=== PATIENT | female | born 1930 | race Caucasian/White ===

== ENCOUNTER → 2016-07-01 | Outpatient (CLI) | payer MEDICARE, BC | LOC: RAD 14:28 | PROVIDERS: ATTEND Specialist | DX: R05 Cough (principal); R06.02 Shortness of breath; R09.89 Other specified symptoms and signs involving the circulatory and respiratory systems | CPT/HCPCS: 71020 ==

== ENCOUNTER → 2016-08-21 | Outpatient (CLI) | payer MEDICARE, BC | LOC: RAD 08:21 | PROVIDERS: ATTEND Internal Medicine Gastroenterology | DX: R13.10 Dysphagia, unspecified (principal) | CPT/HCPCS: 74220 ==

== ENCOUNTER 2016-09-24 09:57 | Emergency (ER) | payer MEDICARE, BC ==
[2016-09-24] MEDS ORDERED: ACETAMINOPHEN 325 MG TABLET PO ONE (10:48)
[2016-09-24] MEDS ORDERED: ASPIRIN 81 MG TABLET, CHEWABLE PO ONE (10:49)
--- NOTE | 2016-09-24 10:58 | ER Document Report ---
ED General - General Mode of Arrival: Medic Information source: Patient, Relative - son TRAVEL OUTSIDE OF THE [place] IN LAST 30 DAYS: No - HPI Patient complains to provider of: Neck Pain Onset: This morning Associated symptoms: Other - see notes above <JURGEN PRIETO - Last Filed: 09/24/16 17:10> <YAKELINJEAN CLAUDE - Last Filed: 09/24/16 20:25> - General Chief Complaint: Blood Pressure Problem Stated Complaint: BLOOD PRESSURE PROBLEMS Notes: 85 year old female with history of CHF, atrial fibrillation (with a pacemaker [ [employer]] and defibrillator), hyperlipidemia, and hypertension presents to the ED via EMS complaining of right sided neck pain that started earlier this morning. Patient explains that she had a C5, 6, and 7 fusion "years" ago and they have "broken apart since", so she develops neck pain when bending her head over for extended periods of time. Patient was bending over to put on her clothes this morning when the pain started. Patient went to lay down in her bed so that she didn't "pass out" on the ground. Patient's son reports that her heart rate has been between 45-55 and her blood pressure is in the 90's and is concerned over the patient's heart health. Patient denies chest pain or shortness of breath. Patient states that she asked EMT to place a C-collar, because it helps with her neck pain. Patient denies falling, but her son states that she had a near fall 2 weeks ago, but caught herself before collapsing on the ground. EMS reports that the patient was hypotensive, bradycardic, and had a syncopal episode while on the toilet this morning. As per [facility] records, in May 2016, the patient was seen in the ED complaining of chest pain, hypertension, and a syncopal epsiode which was diagnosed as a post-vasovagal episode. Patient had a cardiac follow up and had an echocardiogram and stress test performed secondary to this episode. Patient's show horse driver is Dr. Diaz and Dr. Prieto. Patient's primary care provider is Dr. Reid. (JURGEN PRIETO) - Related Data Allergies/Adverse Reactions: Penicillins Allergy (Verified 10/28/11 14:18) prochlorperazine [From Compazine] Adverse Reaction (Verified 05/24/16 17:51) Past Medical History - General Information source: Patient, Relative - son - Social History Smoking Status: Unknown if Ever Smoked Family History: CAD, Hypertension - Past Medical History Cardiac Medical History: Reports: Hx Atrial Fibrillation, Hx Congestive Heart Failure, Hx Hypercholesterolemia, Hx Hypertension Musculoskeltal Medical History: Reports Hx Arthritis - knees and hips Psychiatric Medical History: Reports: Hx Depression - mild Past Surgical History: Reports: Hx Cardiac Surgery - pacemaker, Hx Hysterectomy , Hx Pacemaker, Hx Valve Replacement - Mitral valve 1994 - Immunizations Hx Diphtheria, Pertussis, Tetanus Vaccination: Yes Hx Pneumococcal Vaccination: 06/21/09 <JURGEN PRIETO - Last Filed: 09/24/16 17:10> Review of Systems - Review of Systems Constitutional: No symptoms reported EENT: No symptoms reported Cardiovascular: No symptoms reported. denies: Chest pain Respiratory: No symptoms reported. denies: Short of breath Gastrointestinal: No symptoms reported Genitourinary: No symptoms reported Female Genitourinary: No symptoms reported Musculoskeletal: See HPI, Neck pain - right sided Skin: No symptoms reported Hematologic/Lymphatic: No symptoms reported Neurological/Psychological: No symptoms reported -: Yes All other systems reviewed and negative <JURGEN PRIETO - Last Filed: 09/24/16 17:10> Physical Exam - General General appearance: Alert, Other - C-collar in place In distress: None - HEENT Head: Normocephalic, Atraumatic, Other - C-collar in place. Healed abrasion to left cheek. Eyes: Normal Extraocular movements intact: Yes Pupils: PERRL - Respiratory Respiratory status: No respiratory distress Breath sounds: Normal - Cardiovascular Rhythm: Regular Heart sounds: Normal auscultation - Abdominal Inspection: Normal Distension: No distension Tenderness: Nontender - Back Back: Normal - Extremities General upper extremity: Normal inspection, Normal ROM General lower extremity: Normal inspection, Normal ROM - Neurological Neuro grossly intact: Yes Cognition: Normal Orientation: AAOx4 [place] Coma Scale Eye Opening: Spontaneous [place] Coma Scale Verbal: Oriented [place] Coma Scale Motor: Obeys Commands [place] Coma Scale Total: 15 Speech: Normal - Psychological Associated symptoms: Normal affect, Normal mood - Skin Skin Temperature: Warm Skin Moisture: Dry Skin Color: Normal <JURGEN PRIETO - Last Filed: 09/24/16 17:10> Course - Laboratory Result Diagrams: 09/24/16 11:24 09/24/16 11:24 - Consults Clinical Investigator Time consulted: 10:30 Dr. Diaz Time consulted: 10:46 [employer] Time consulted: 11:00 Matthew ([employer]) Time consulted: 11:08 [facility] Time consulted: 15:24 Dr. Hines Time consulted: 15:54 <JURGEN PRIETO - Last Filed: 09/24/16 17:10> - Laboratory Result Diagrams: 09/24/16 11:24 09/24/16 11:24 - Diagnostic Test Radiology reviewed: Reports reviewed - Consults Dr. Chandra Time consulted: 18:45 <JEAN CLAUDE HAMLIN - Last Filed: 09/24/16 20:25> - Re-evaluation Re-evalutation: 09/24/16 18:39 Patient is an 85-year-old female who presents with bradycardia and near syncope at home. Patient did have bradycardia and hypotension prior to presentation in the emergency department. After an extensive workup in the emergency department including consultation with her show horse driver, pacemaker interrogation , multiple re-evaluations by myself, it was decided that the patient should be transferred for having a heart rates in the high 30s and 40s, albeit briefly. It is likely that she needs her pacemaker rate increased. She is asymptomatic at this time. Patient was discussed with Dr. Prieto at [facility] who agrees to accept patient in transfer. 09/24/16 20:10 Patient is resting comfortably at this time. Home medications have been put in the computer so that the patient receive them. Discuss course with Dr. Crowley recommends keeping the patient on 12.5 twice a day that she does not go into rapid A. fib. Patient has been placed in a hospital bed. She is stable at this time. Hopefully she will have a better [facility] in the morning. Family has been updated. (JEAN CLAUDE HAMLIN) - Vital Signs Vital signs: Temp Pulse Resp BP Pulse Ox 97.6 F 63 15 138/81 H 93 09/24/16 10:05 09/24/16 10:05 09/24/16 18:01 09/24/16 18:01 09/24/16 18:01 - Laboratory Laboratory results interpreted by me: 09/24/16 09/24/16 09/24/16 11:24 11:24 11:24 RBC 3.34 L Hgb 10.7 L Hct 32.1 L RDW 14.3 H Plt Count 57 L PT 26.3 H APTT 47.0 H Sodium 134.4 L BUN 21 H AST 38 H Total Protein 5.7 L - Consults Clinical Investigator Reason for consultation: 09/24/16 10:30 Clinical Investigator was called to page Dr. Diaz. 09/24/16 10:59 Clinical Investigator was called for the number to [employer]. (JURGEN PRIETO) Dr. Diaz Reason for consultation: 09/24/16 10:46 Patient was discussed with Dr. Diaz and states to send the EKG and call back with a set of cardiac enzymes. 09/24/16 14:37 Patient's vitals were discussed with Dr. Diaz and he states that the patient can be discharged home. 09/24/16 15:21 Patient's vitals and EKG was discussed with Dr. Diaz and agrees with the plan to call her Tripe Finisher, Dr. Prieto, in [place]. (JURGEN PRIETO) [employer] Reason for consultation: 09/24/16 11:00 [employer] was called and a rep was paged. (JURGEN PRIETO) Matthew ([employer]) Reason for consultation: 09/24/16 11:08 Patient was discussed with Matthew ([employer]), who returned the call, and states that the patient has a single chamber ICD with pacemaker function set to the 40s. (JURGEN PRIETO) [facility] Reason for consultation: 09/24/16 15:24 [facility] was called regarding the patient. (JURGEN PRIETO) Dr. Hines Reason for consultation: 09/24/16 15:54 Patient was discussed with Dr. Hines and agrees to transfer the patient to a telemetry bed at [facility]. (JURGEN PRIETO) Critical Care Note - Critical Care Note Total time excluding time spent on procedures (mins): 180 - evaluation and management of near syncope, bradycardia, pacemaker interrogation, consultation with cardiology, coordination of transfer, consultation with family, ultimately will re-evaluations <JEAN CLAUDE HAMLIN - Last Filed: 09/24/16 20:25> Discharge <JURGEN PRIETO - Last Filed: 09/24/16 17:10> <JEAN CLAUDE HAMLIN - Last Filed: 09/24/16 20:25> - Discharge Clinical Impression: Anticoagulated on Coumadin, Chronic atrial fibrillation, Near syncope, Symptomatic bradycardia Condition: Stable Disposition: [facility] Referrals: HANSEL REID MD [Primary Care Provider] - Follow up as needed Scribe Attestation: 09/24/16 20:25 I personally performed the services described in the documentation, reviewed and edited the documentation which was dictated to the scribe in my presence, and it accurately records my words and actions. (JEAN CLAUDE HAMLIN) Scribe Documentation - Scribe Written by Shadi:: Shadi Sharif, 09/24/2016 1113 acting as scribe for :: Yakelin <JURGEN PRIETO - Last Filed: 09/24/16 17:10>
[2016-09-24 11:51] LABS: ABSOLUTE EOSINOPHILS # (AUTO) 0.1 10^3/uL (0.0-0.6); ABSOLUTE LYMPHOCYTES (AUTO) 0.9 10^3/uL (0.5-4.7); ABSOLUTE MONOCYTES (AUTO) 0.5 10^3/uL (0.1-1.4); ABSOLUTE NEUT (AUTO) 3.4 10^3/uL (1.7-8.2); BASOPHILS % (AUTO) 0.3 % (0-2); EOSINOPHILS % (AUTO) 1.9 % (0-6); HEMATOCRIT 32.1 % (36.0-47.0); HEMOGLOBIN 10.7 g/dL (12.0-15.5); LYMPHOCYTES % (AUTO) 18.7 % (13-45); MEAN CORPUSCULAR HEMOGLOBIN 32.2 pg (27.0-33.4); MEAN CORPUSCULAR HGB CONC 33.5 g/dL (32.0-36.0); MEAN CORPUSCULAR VOLUME 96 fl (80-97); MONOCYTES % (AUTO) 10.1 % (3-13); RED BLOOD COUNT 3.34 10^6/uL (3.72-5.28); RED CELL DISTRIBUTION WIDTH 14.3 % (11.5-14.0)
[2016-09-24 12:01] LABS: PROTHROMBIN TIME 26.3 SEC (11.4-15.4)
[2016-09-24 12:09] LABS: ALANINE AMINOTRANSFERASE 40 U/L (9-52); ALBUMIN 3.8 g/dL (3.5-5.0); ALKALINE PHOSPHATASE 78 U/L (38-126); ANION GAP 10 (5-19); ASPARTATE AMINO TRANSFERASE 38 U/L (14-36); BILIRUBIN,DIRECT 0.2 mg/dL (0.0-0.4); BILIRUBIN,TOTAL 0.8 mg/dL (0.2-1.3); BLOOD UREA NITROGEN 21 mg/dL (7-20); CALCIUM 9.1 mg/dL (8.4-10.2); CARBON DIOXIDE 26 mmol/L (22-30); CHLORIDE 98 mmol/L (98-107); CREATINE KINASE 45 U/L (30-135); CREATININE RESULT 0.62 mg/dL (0.52-1.25); GLUCOSE 81 mg/dL (75-110); POTASSIUM 4.4 mmol/L (3.6-5.0); SODIUM 134.4 mmol/L (137-145); TOTAL PROTEIN 5.7 g/dL (6.3-8.2)
[2016-09-24] MEDS ORDERED: NORMAL SALINE 1000 ML 500 ML IV ONE (12:21)
--- NOTE | 2016-09-24 15:44 | CONSULTATION REPORT E ---
Consultation Report NAME: ALESIA GRECO : 1930 AGE: 85Y DATE: 09/24/2016 TO: JD COY M.D. FROM: Evelia MALCOLM, Requesting Physician CHIEF COMPLAINT: Bradycardia, hypotension, near syncope, right neck pain. HISTORY OF PRESENT ILLNESS: This 85-year-old female with multiple cardiac, blood pressure, orthopedic, GI, anemia problems was doing fine at home until the morning of admission when after she had a BM, she was leaning forward getting dressed or washed when her R neck pain flared up. Pain intensity was 9/10. She felt near syncopal and managed to lay back in bed. It was said that her heart rate was in the 40s and her blood pressure was 88 systolic per her caregiver. The rescue squad was called and on arrival confirmed that patient had a heart rate in the 40s and the systolic blood pressure was 90, whereupon her son called my office and I instructed him to get her to the emergency room for workup. Patient has a known history of syncope and falls (>3). She was brought to the ER and was found to have a heart rate of 60-90 with a blood pressure of 130/76. Patient was alert and oriented. Dr. Sweet attended to her and subsequently called me about her findings. I recommended her to call [employer] , her ICD device maker and interrogate the device to make sure there was no nonsustained ventricular tachycardia this morning causing her to have near syncope and the answer was that there was no nonsustained ventricular tachycardia this morning but she did have a couple of episodes as recent a 1-1/2 months ago. It was also discovered that her heart rate would go down to the 40s in about 1% of the time. During her stay in the ER, there was no hypotension and no bradycardia seen. The EKG showed atrial fibrillation with controlled ventricular response at 90 per minute and there was mild diffuse nonspecific ST-T changes which was similar to previous EKGs representing no acute change. The chest x-ray showed cardiomegaly but no acute findings. Laboratory testing showed prothrombin time INR 2.3 and patient is on Coumadin. The RFT was BUN 21, creatinine 0.62, sodium 134, potassium 4.4. The hemoglobin was 10.7 and patient is known to have chronic anemia. Her troponin I ultimately came back as less than 0.012. On physical examination, patient's blood pressure was 130/70. The heart fluctuated between 90 to 61 due to atrial fibrillation, there was occasional dips in her pulse ox down to the 70s, otherwise, most of the time it was in the 97% range. Her respiratory rate was 16. She indicated her neck pain to be on the right side, about the C 3, 4, 5 areas. This has been a flare up of a chronic problem and patient was known to have had a C3, 4, 5 fusion in the late 70s. There was no neck bruit. Examination of the heart showed irregular rhythm of atrial fibrillation. There was no facial asymmetry, no arcus senilis. The oral mucosa was somewhat dry and patient was known to be on torsemide and Aldactone for chronic compensated congestive heart failure and leg edema. On examination of the heart, JVP was distended. The PMI was not palpable. Her ICD unit was in the left upper chest. There was no S4. S1 was variable. S2 was normal. A grade 2/6 systolic ejection murmur was heard. No AR. MR was faint. No abdominal bruit. The lungs showed reduced air entry and bilateral wheezing and rhonchi was heard in the bases of the lungs. The abdomen showed no abdominal distension and no hepatosplenomegaly. Bowel sounds were normal. The extremities showed minimal pitting edema and patient had her pressure stockings on. Neurologically patient was intact. There was no deficit. IMPRESSION: 1. Bradycardia. Based on patient's ICD download, it appears that patient has heart rate in the 40s about 1% of the time, specifically there was no nonsustained ventricular tachycardia this a.m. surrounding the time of her near syncope. Patient is on Coreg 18.75 mg b.i.d. for CHF and for AFib with controlled ventricular response This is not always sufficient because patient has complaints of palpitations when her ventricular response gets up to the 90s. It is, therefore, not feasible to further increase her Coreg dose beyond 18.75, otherwise, she would have many more episodes of bradycardia with heart rate dipping into the 40s, facilitating her going into near syncopal situations. Therefore, a possible solution would be to send her back to her EP, Dr. Prieto, so that he can increase her support heart rate to 50 or 60 in the event that in the future we need to increase her Coreg to reduce her palpitations. I have discussed this with Dr Oscar Prieto 2. Hypotension. The blood pressure was as low as 88 according to the caregiver this morning although her blood pressure was never low while in the ER, usually running in the 130s. This bradycardia and hypotension this morning I believe is brought about by an episode of severe neck pain causing her to vagal response. She may also be somewhat hypovolemic from use of diuretics for CHF and leg edema but with her forgetting to drink enough fluids and also because she has been using laxatives every 3 days with unknown fluid loss every third day according to her son. It is further complicated by her having anemia with today's hemoglobin being 10.7. This problem is under Dr. Ulloa and given patient's propensity to have near syncopal episodes, patient could benefit from measures to raise her hemoglobin into the 12-13 gm% area. I have discussed this with Dr. Ulloa in the past and she is working on it. I have instructed the son to reduce patient's torsemide to 5 mg and Aldactone 25 mg from daily to every other day hence forth, and remind the patient to tolerate some of the leg edema as long as she does not have shortness of breath. This is a trade off. 3. Neck pain. Patient has had a past history of cervical fusion C3, 4, 5 in 1976. Patient needs to revisit with an orthopedic surgeon or neck/spine surgeon to see what options are open to her so that she does not frequently incur severe neck pain causing her to vagal down into bradycardia and hypotension. Due to no change in the EKG from previous ones and negative troponin I and recent stress test 3 months ago showing no reversible ischemia except that of periinfarction ischemia, this neck pain is not likely an ACS episode and from this standpoint, patient may go home. I have instructed the son to find her an orthopedic surgeon with neck expertise to reassess this issue and see what kind of pain relief can be given to this patient. 4. Palpitations. These are atrial fibrillation ventricular responses in the 90s whenever patient feels her palpitations. I instructed the patient that she needs to put up with these benign palpitations until such time as we are able to further increase her Coreg back to the previous 25 mg b.i.d. pending adjustment of her ICD device on the lower support rate of 40. 5. Anemia. Hemoglobin 10.7. This is chronic and will be addressed by Dr. Ulloa as to how to bring her hemoglobin stabilized in the 12-13 gm % level. 6. Wheezing and rhonchi. Patient has had colds off and on and these represent COPD wheezes or asthmatic wheezes and the son is to bring her to see Dr. Almeida, her PCM, to get inhalers for this wheezing. There is no evidence of heart failure by examination and by chest x-ray. 7. Constipation. During this visit, it was discovered that patient has chronic constipation to the point that she will only have a BM every 3 days when she takes multiple (10) laxatives per her son. This causes extra volume loss periodically, facilitating her into hypotension and dizziness and near syncope. Her GI doctor is Dr. Trujillo and she will be seeing him in connection with her recent GI bleed and consideration for colonoscopy or Cologuard. TIME SPENT: 12:25 to 1:50 p.m. DICTATING PHYSICIAN: JD COY M.D. [id number] PHY#: [id number] ID: [id number] JOB#: [id number] ACCT: [id number] cc:JD COY M.D. > MTDD
--- NOTE | 2016-09-24 15:44 | EKG REPORT ---
SEVERITY:- ABNORMAL ECG - ACCELERATED JUNCTIONAL RHYTHM NONSPECIFIC INTRAVENTRICULAR CONDUCTION DELAY : Confirmed by: Christina Bojorquez MD 24-Sep-2016 15:42:14
--- NOTE | 2016-09-24 15:44 | EKG REPORT ---
SEVERITY:- ABNORMAL ECG - VENTRICULAR-PACED COMPLEXES NONSPECIFIC INTRAVENTRICULAR CONDUCTION DELAY : Confirmed by: Christina Bojorquez MD 24-Sep-2016 15:42:08
[2016-09-24] MEDS ORDERED: IPRATROPIUM/ALBUTEROL 0.5-2.5 MG/3 ML AMPUL NEB ONE (17:34)
[2016-09-24] MEDS ORDERED: CARVEDILOL 12.5 MG TABLET PO SCH (22:00)
[2016-09-24] MEDS ORDERED: ATORVASTATIN CALCIUM 20 MG TABLET PO SCH (22:00)
[2016-09-24] MEDS ORDERED: WARFARIN SODIUM 7.5 MG TABLET PO SCH (22:00)
[2016-09-24] MEDS ORDERED: PREGABALIN 50 MG CAPSULE PO SCH (22:00)
[2016-09-24] MEDS ORDERED: LORAZEPAM 0.5 MG TABLET PO SCH (22:00)
[2016-09-25] MEDS ORDERED: IPRATROPIUM/ALBUTEROL 0.5-2.5 MG/3 ML AMPUL NEB ONE
--- NOTE | 2016-09-25 00:05 | ER Document Report ---
Doctor's Note Notes: 09/25/16 00:04 Patient resting comfortably, I was asked to evaluate her nursing as patient is having some wheezing after using the bedside commode, she does have a mild wheeze on auscultation, lisao neb treatment was ordered, I am told that patient should be transported out of this department within the next 30 minutes to tertiary [facility], she is otherwise comfortable with no complaints and stable for transport
[2016-09-25 00:19] VITALS: BP 123/66
[2016-09-25] MEDS ORDERED: LORAZEPAM INJ 2 MG/1 ML VIAL IV ONE (00:36)
[2016-09-25] MEDS ORDERED: SPIRONOLACTONE 25 MG TABLET PO SCH (10:00)
[2016-09-25] MEDS ORDERED: TORSEMIDE 20 MG TABLET PO SCH (10:00)
[2016-09-25] MEDS ORDERED: DOCUSATE SODIUM 100 MG CAPSULE PO SCH (10:00)
[2016-09-25] MEDS ORDERED: MAGNESIUM OXIDE 400 MG TABLET PO SCH (10:00)
[2016-09-25] MEDS ORDERED: ESCITALOPRAM OXALATE 10 MG TABLET PO SCH (10:00)
[2016-09-25] MEDS ORDERED: PREGABALIN 100 MG CAPSULE PO SCH (10:00)
== END 2016-09-25 00:45 | disposition short-term general hospital (02) ==
LOC: ER 09:57
DX: R00.1 Bradycardia, unspecified (principal); I48.2 Chronic atrial fibrillation; Z79.01 Long term (current) use of anticoagulants; R55 Syncope and collapse; M54.2 Cervicalgia; I10 Essential (primary) hypertension; R06.2 Wheezing; Z95.2 Presence of prosthetic heart valve; Z95.810 Presence of automatic (implantable) cardiac defibrillator; Z98.1 Arthrodesis status; Z88.0 Allergy status to penicillin; Z82.49 Family history of ischemic heart disease and other diseases of the circulatory system
CPT/HCPCS: 93005; 94640 ×2; 99291; 99292; 96374; 36415; 82553; 82550; 85025; 85610; 85730; 80053; 84484; 71010; 93010; A9270 ×8; J2060; J7030; J3490; J7620

== ENCOUNTER 2016-11-23 08:40 | Emergency (ER) | payer MEDICARE, BC ==
[2016-11-23] MEDS ORDERED: ALBUTEROL SULFATE 0.083% NEB 2.5 MG/3 ML AMPUL NEB ONE ×2 (09:29→14:01)
--- NOTE | 2016-11-23 10:35 | RADIOLOGY REPORT (SQ) ---
EXAM DESCRIPTION: CHEST SINGLE VIEW COMPLETED DATE/TIME: 11/23/2016 10:23 am REASON FOR STUDY: cough, sob, rhonchi COMPARISON: 09/24/2016 EXAM PARAMETERS: NUMBER OF VIEWS: One view. TECHNIQUE: Single frontal radiographic view of the chest acquired. RADIATION DOSE: NA LIMITATIONS: None. FINDINGS: LUNGS AND PLEURA: There is no pulmonary infiltrate or pleural effusion. MEDIASTINUM AND HILAR STRUCTURES: No masses. Contour normal. HEART AND VASCULAR STRUCTURES: Cardiomegaly is present. There is no evidence of failure. BONES: No acute findings. HARDWARE: Pacemaker/defibrillator on the left. Sternotomy wires. OTHER: No other significant finding. IMPRESSION: Cardiomegaly with no liza CHF. TECHNICAL DOCUMENTATION: JOB ID: [id number]
--- NOTE | 2016-11-23 10:51 | ER Document Report ---
ED Respiratory Problem - General Chief Complaint: Productive Cough Stated Complaint: SHORTNESS OF BREATH Time Seen by Provider: 11/23/16 09:00 Mode of Arrival: Medic Information source: Patient, Relative Notes: Pt is an 86 year old female with a history of CHF, and recurrent bronchitis, who presents to the ER today for cough, shortness of breath since 4am. She is on coumadin and lovenox for a fib and non-therapeutic INR recently. Family states her sputum has started to have streaks of bright red blood in it since this morning. Pt denies fever/chills, wheezing, chest pain. TRAVEL OUTSIDE OF THE [place] IN LAST 30 DAYS: No - Related Data Allergies/Adverse Reactions: Penicillins Allergy (Verified 10/28/11 14:18) prochlorperazine [From Compazine] Adverse Reaction (Verified 05/24/16 17:51) Past Medical History - General Information source: Patient - Social History Smoking Status: Unknown if Ever Smoked Family History: CAD, Hypertension - Past Medical History Cardiac Medical History: Reports: Hx Atrial Fibrillation, Hx Congestive Heart Failure, Hx Hypercholesterolemia, Hx Hypertension Denies: Hx Coronary Artery Disease, Hx Heart Attack Pulmonary Medical History: Denies: Hx Asthma, Hx Bronchitis, Hx COPD, Hx Pneumonia, Hx Tuberculosis Neurological Medical History: Denies: Hx Cerebrovascular Accident, Hx Seizures Musculoskeltal Medical History: Reports Hx Arthritis - knees and hips Psychiatric Medical History: Reports: Hx Depression - mild Past Surgical History: Reports: Hx Cardiac Surgery - pacemaker, Hx Hysterectomy , Hx Pacemaker, Hx Valve Replacement - Mitral valve 1994 - Immunizations Hx Diphtheria, Pertussis, Tetanus Vaccination: Yes Hx Pneumococcal Vaccination: 06/21/09 Review of Systems - Review of Systems Constitutional: No symptoms reported EENT: No symptoms reported Cardiovascular: No symptoms reported Respiratory: See HPI Gastrointestinal: No symptoms reported Genitourinary: No symptoms reported Female Genitourinary: No symptoms reported Musculoskeletal: No symptoms reported Skin: No symptoms reported Hematologic/Lymphatic: No symptoms reported Neurological/Psychological: No symptoms reported Physical Exam - Vital signs Vitals: Resp Pulse Ox 13 95 11/23/16 09:09 11/23/16 09:09 - Notes Notes: PHYSICAL EXAMINATION: GENERAL: elderly, in no acute distress. HEAD: Atraumatic, normocephalic. EYES: Pupils equal round and reactive to light, extraocular movements intact, sclera anicteric, conjunctiva are normal. ENT: ear canals without erythema or foreign body, TMs pearly escobar with good bony landmarks, nares patent, oropharynx clear without exudates. Moist mucous membranes. NECK: Normal range of motion, supple without lymphadenopathy LUNGS: wheezes throughout lungs, no rhonchi or rales HEART: Regular rate and rhythm without murmurs ABDOMEN: Soft, no tenderness. No guarding, no rebound EXTREMITIES: Normal range of motion, no pitting edema. No cyanosis. NEUROLOGICAL: Cranial nerves grossly intact. Normal sensory/motor exams. PSYCH: Normal mood, normal affect. SKIN: Warm, Dry, normal turgor, no rashes or lesions noted Course - Re-evaluation Re-evalutation: 11/23/16 13:59 Labs are at her baseline including hemoglobin, hematocrit, platelets are actually better than normal. INR is 2.28, therapeutic. I have seen patient spit up some bright red blood in her saliva after coughing, it was sent for sputum culture but determined that it was just saliva and so they did not test it. The bright red blood was streaked throughout the saliva. No clots. Chest x-ray negative for any acute pathology, no vascular congestion or pneumonia. Dr. Ulloa, patient's transformer tester was consulted with and 1 Coumadin held for the day, Lovenox stopped altogether and patient treated for bronchitis.Dr. Diaz, pt's highway truck driver called and wants the coumadin decreased to 2.5mg tonight at 6pm and INR drawn first thing in the morning, lovenox stopped. He advises laquita mo. 11/23/16 14:01 - Vital Signs Vital signs: Temp Pulse Resp BP Pulse Ox 98.0 F 14 126/78 H 93 11/23/16 10:00 11/23/16 12:01 11/23/16 12:01 11/23/16 12:01 - Laboratory Result Diagrams: 11/23/16 11:46 11/23/16 11:46 Laboratory results interpreted by me: 11/23/16 11/23/16 11/23/16 10:42 11:46 11:46 WBC 3.9 L RBC 3.15 L Hgb 10.0 L Hct 30.3 L RDW 14.6 H Plt Count 87 L Monocytes % 13.1 H Eosinophils % 6.7 H PT APTT BUN 22 H NT-Pro-B Natriuret Pep Urine Blood SMALL H 11/23/16 11/23/16 11/23/16 11:46 11:46 11:46 WBC RBC Hgb Hct RDW Plt Count Monocytes % Eosinophils % PT 26.3 H APTT 67.2 H BUN NT-Pro-B Natriuret Pep 1770 H Urine Blood Discharge - Discharge Clinical Impression: Anticoagulated on Coumadin, Cough, Hemoptysis Condition: Stable Disposition: HOME, SELF-CARE Additional Instructions: STOP LOVENOX. TAKE 2.5MG OF COUMADIN TONIGHT AT YOUR REGULAR TIME. Go The first thing in the morning to [facility] and have your INR drawn , I have printed an order for you. Return immediately for any new or worsening symptoms. Follow up with primary care provider, call tomorrow to make followup appointment. Prescriptions: Benzonatate [Tessalon Perle 100 mg Capsule] 100 mg PO Q8HP PRN #40 cap PRN Reason: Albuterol Sulfate [Albuterol Sulfate 2.5mg/3 mL] 1 vial IH Q4 PRN #25 vial PRN Reason: Hydrocodone/Chlorphen P-Stirex [Tussionex Pennkinetic Susp] 5 ml PO Q4 PRN #120 ml PRN Reason: Forms: Follow-Up Laboratory Testing Referrals: HANSEL REID MD [Primary Care Provider] - Follow up as needed
[2016-11-23 10:59] LABS: APPEARANCE,URINE CLEAR; BILIRUBIN,URINE NEGATIVE (NEGATIVE); GLUCOSE, URINE NEGATIVE (NEGATIVE); KETONES,URINE NEGATIVE (NEGATIVE); LEUKOCYTE ESTERASE,URINE NEGATIVE (NEGATIVE); NITRITE,URINE NEGATIVE (NEGATIVE); PROTEIN,URINE NEGATIVE (NEGATIVE); URINE SPECIFIC GRAVITY 1.005; UROBILINOGEN,URINE NEGATIVE mg/dL (<2.0)
[2016-11-23] MEDS ORDERED: BENZONATATE 100 MG CAPSULE PO ONE (11:43)
[2016-11-23 12:01] LABS: VENOUS BLOOD BASE EXCESS 5.3 mmol/L; VENOUS BLOOD HCO3 30.5 mmol/L (20-32); VENOUS BLOOD PCO2 47.8 mmHg (35-63); VENOUS BLOOD PH 7.42 (7.30-7.42)
[2016-11-23 12:19] LABS: ABSOLUTE EOSINOPHILS # (AUTO) 0.3 10^3/uL (0.0-0.6); ABSOLUTE LYMPHOCYTES (AUTO) 0.9 10^3/uL (0.5-4.7); ABSOLUTE MONOCYTES (AUTO) 0.5 10^3/uL (0.1-1.4); ABSOLUTE NEUT (AUTO) 2.1 10^3/uL (1.7-8.2); ALANINE AMINOTRANSFERASE 32 U/L (9-52); ALBUMIN 3.5 g/dL (3.5-5.0); ALKALINE PHOSPHATASE 103 U/L (38-126); ANION GAP 8 (5-19); ASPARTATE AMINO TRANSFERASE 34 U/L (14-36); BASOPHILS % (AUTO) 0.9 % (0-2); BILIRUBIN,DIRECT 0.3 mg/dL (0.0-0.4); BILIRUBIN,TOTAL 0.6 mg/dL (0.2-1.3); BLOOD UREA NITROGEN 22 mg/dL (7-20); CALCIUM 9.2 mg/dL (8.4-10.2); CARBON DIOXIDE 30 mmol/L (22-30); CHLORIDE 101 mmol/L (98-107); CREATINE KINASE 36 U/L (30-135); CREATININE RESULT 0.62 mg/dL (0.52-1.25); EOSINOPHILS % (AUTO) 6.7 % (0-6); GLUCOSE 98 mg/dL (75-110); HEMATOCRIT 30.3 % (36.0-47.0); HGB HCT DIFFERENCE -0.3; MEAN CORPUSCULAR HEMOGLOBIN 31.8 pg (27.0-33.4); MEAN CORPUSCULAR HGB CONC 33.1 g/dL (32.0-36.0); MEAN CORPUSCULAR VOLUME 96 fl (80-97); MONOCYTES % (AUTO) 13.1 % (3-13); POTASSIUM 3.9 mmol/L (3.6-5.0); RED BLOOD COUNT 3.15 10^6/uL (3.72-5.28); RED CELL DISTRIBUTION WIDTH 14.6 % (11.5-14.0); SEGMENTED NEUTROPHILS % (AUTO) 55.3 % (42-78); SODIUM 139.4 mmol/L (137-145); TOTAL PROTEIN 6.4 g/dL (6.3-8.2); WHITE BLOOD COUNT 3.9 10^3/uL (4.0-10.5)
[2016-11-23 12:31] LABS: CREATINE KINASE MB 0.57 ng/mL (<4.55)
[2016-11-23 12:36] LABS: TROPONIN I < 0.012 ng/mL
[2016-11-23 12:41] LABS: PROTHROMBIN TIME 26.3 SEC (11.4-15.4)
[2016-11-23 14:20] VITALS: BP 100/71
== END 2016-11-23 14:30 | disposition home or self-care (01) ==
LOC: ER 08:40
DX: R04.2 Hemoptysis (principal); J40 Bronchitis, not specified as acute or chronic; R06.02 Shortness of breath; I10 Essential (primary) hypertension; I48.91 Unspecified atrial fibrillation; Z79.01 Long term (current) use of anticoagulants; Z79.02 Long term (current) use of antithrombotics/antiplatelets; Z95.0 Presence of cardiac pacemaker; Z95.2 Presence of prosthetic heart valve; Z88.0 Allergy status to penicillin
CPT/HCPCS: 94640 ×2; 99284; 36415; 87205; 82553; 82550; 85025; 85610; 85730; 80053; 81001; 84484; 82803; 83880; 71010; A9270 ×2

== ENCOUNTER → 2016-11-24 | Outpatient (CLI) | payer MEDICARE, BC ==
[2016-11-24 10:08] LABS: PROTHROMBIN TIME 25.8 SEC (11.4-15.4)
== END ==
LOC: OD 09:15
PROVIDERS: ATTEND Internal Medicine Cardiovascular Disease
DX: Z79.01 Long term (current) use of anticoagulants (principal)
CPT/HCPCS: 36415; 85610

== ENCOUNTER → 2016-12-08 | Outpatient (CLI) | payer MEDICARE, BC ==
[2016-12-08 12:55] LABS: PROTHROMBIN TIME 21.8 SEC (11.4-15.4)
== END ==
LOC: OD 11:34
PROVIDERS: ATTEND Internal Medicine Cardiovascular Disease
DX: Z79.01 Long term (current) use of anticoagulants (principal); Z51.81 Encounter for therapeutic drug level monitoring
CPT/HCPCS: 36415; 85610

== ENCOUNTER → 2016-12-25 | Outpatient (CLI) | payer MEDICARE, BC ==
[2016-12-25 10:42] LABS: PROTHROMBIN TIME 21.9 SEC (11.4-15.4)
== END ==
LOC: OD 09:27
PROVIDERS: ATTEND Internal Medicine Cardiovascular Disease
DX: Z79.01 Long term (current) use of anticoagulants (principal)
CPT/HCPCS: 36415; 85610

== ENCOUNTER → 2017-05-20 | Outpatient (CLI) | payer MEDICARE, BC ==
[2017-05-20 13:41] LABS: PROTHROMBIN TIME 29.6 SEC (11.4-15.4)
== END ==
LOC: OD 12:22
PROVIDERS: ATTEND Internal Medicine Cardiovascular Disease
DX: I48.2 Chronic atrial fibrillation (principal); Z79.01 Long term (current) use of anticoagulants
CPT/HCPCS: 36415; 85610

== ENCOUNTER → 2017-06-03 | Outpatient (CLI) | payer MEDICARE, BC ==
[2017-06-03 14:56] LABS: PROTHROMBIN TIME 34.2 SEC (11.4-15.4)
== END ==
LOC: OD 13:09
PROVIDERS: ATTEND Internal Medicine Cardiovascular Disease
DX: Z51.81 Encounter for therapeutic drug level monitoring (principal); Z79.01 Long term (current) use of anticoagulants
CPT/HCPCS: 36415; 85610

== ENCOUNTER → 2017-06-10 | Outpatient (CLI) | payer MEDICARE, BC ==
[2017-06-10 13:35] LABS: PROTHROMBIN TIME 20.4 SEC (11.4-15.4)
[2017-06-10 13:54] LABS: ANION GAP 10 (5-19); BLOOD UREA NITROGEN 18 mg/dL (7-20); CALCIUM 9.8 mg/dL (8.4-10.2); CARBON DIOXIDE 30 mmol/L (22-30); CHLORIDE 101 mmol/L (98-107); CREATININE RESULT 0.72 mg/dL (0.52-1.25); GLUCOSE 125 mg/dL (75-110); MAGNESIUM 1.8 mg/dL (1.6-2.3); POTASSIUM 4.3 mmol/L (3.6-5.0); SODIUM 140.7 mmol/L (137-145)
== END ==
LOC: OD 12:03
PROVIDERS: ATTEND Internal Medicine Cardiovascular Disease
DX: R06.02 Shortness of breath (principal); Z79.899 Other long term (current) drug therapy; R60.0 Localized edema; I48.2 Chronic atrial fibrillation
CPT/HCPCS: 36415; 80048; 83735; 83880; 85610

== ENCOUNTER → 2017-06-23 | Outpatient (CLI) | payer MEDICARE, BC ==
[2017-06-23 11:06] LABS: INTERNATIONAL RATION (INR) 1.97; PROTHROMBIN TIME 23.5 SEC (11.4-15.4)
[2017-06-23 11:21] LABS: ANION GAP 9 (5-19); BLOOD UREA NITROGEN 22 mg/dL (7-20); CALCIUM 9.8 mg/dL (8.4-10.2); CARBON DIOXIDE 32 mmol/L (22-30); CHLORIDE 97 mmol/L (98-107); GLUCOSE 76 mg/dL (75-110); POTASSIUM 4.6 mmol/L (3.6-5.0); SODIUM 138.1 mmol/L (137-145)
== END ==
LOC: OD 09:36
PROVIDERS: ATTEND Internal Medicine Cardiovascular Disease
DX: R60.0 Localized edema (principal); I48.2 Chronic atrial fibrillation; R06.02 Shortness of breath
CPT/HCPCS: 36415; 80048; 83735; 83880; 85610

== ENCOUNTER 2017-06-27 13:03 | Emergency (ER) | payer MEDICARE, BC ==
--- NOTE | 2017-06-27 22:15 | EKG REPORT ---
SEVERITY:- ABNORMAL ECG - ATRIAL FIBRILLATION NONSPECIFIC INTRAVENTRICULAR CONDUCTION DELAY BORDERLINE ST DEPRESSION, ANTEROLATERAL LEADS : Confirmed by: Samson Seals 27-Jun-2017 22:15:04
[2017-06-28 04:06] LABS: APPEARANCE,URINE CLEAR; BILIRUBIN,URINE NEGATIVE (NEGATIVE); COLOR,URINE STRAW; GLUCOSE, URINE NEGATIVE (NEGATIVE); KETONES,URINE NEGATIVE (NEGATIVE); LEUKOCYTE ESTERASE,URINE NEGATIVE (NEGATIVE); NITRITE,URINE NEGATIVE (NEGATIVE); PROTEIN,URINE NEGATIVE (NEGATIVE); URINE SPECIFIC GRAVITY 1.005; UROBILINOGEN,URINE NEGATIVE mg/dL (<2.0)
[2017-06-28 04:08] LABS: ABSOLUTE EOSINOPHILS # (AUTO) 0.1 10^3/uL (0.0-0.6); ABSOLUTE LYMPHOCYTES (AUTO) 0.9 10^3/uL (0.5-4.7); ABSOLUTE MONOCYTES (AUTO) 0.6 10^3/uL (0.1-1.4); ABSOLUTE NEUT (AUTO) 4.8 10^3/uL (1.7-8.2); BASOPHILS % (AUTO) 0.3 % (0-2); EOSINOPHILS % (AUTO) 1.4 % (0-6); HEMATOCRIT 30.8 % (36.0-47.0); HEMOGLOBIN 10.2 g/dL (12.0-15.5); INTERNATIONAL RATION (INR) 2.17; LYMPHOCYTES % (AUTO) 14.5 % (13-45); MEAN CORPUSCULAR HEMOGLOBIN 31.3 pg (27.0-33.4); MEAN CORPUSCULAR HGB CONC 33.1 g/dL (32.0-36.0); MEAN CORPUSCULAR VOLUME 95 fl (80-97); MONOCYTES % (AUTO) 9.1 % (3-13); PLATELET COUNT 105 10^3/uL (150-450); PROTHROMBIN TIME 25.3 SEC (11.4-15.4); RED BLOOD COUNT 3.26 10^6/uL (3.72-5.28); RED CELL DISTRIBUTION WIDTH 14.7 % (11.5-14.0); SEGMENTED NEUTROPHILS % (AUTO) 74.7 % (42-78); TOTAL CELLS COUNTED % (AUTO) 100 %; WHITE BLOOD COUNT 6.4 10^3/uL (4.0-10.5)
--- NOTE | 2017-06-28 06:57 | ER Document Report ---
ED General - General Time Seen by Provider: 06/28/17 06:57 Mode of Arrival: Medic Information source: Patient, Relative Notes: 86-year-old female presents with complaints of left hip pain after a fall off the toilet this morning. Patient notes she was able to walk 25 feet and then the pain became unbearable. Shedenies any neck pain but does admit to striking her head. Patient is on Coumadin. Patient notes she is able to move her extremities TRAVEL OUTSIDE OF THE [place] IN LAST 30 DAYS: No - HPI Onset: Just prior to arrival Onset/Duration: Sudden Quality of pain: Sharp Severity: Moderate Pain Level: 4 Associated symptoms: Body/muscle aches Exacerbated by: Movement Relieved by: Denies Similar symptoms previously: Yes - Previous hip fracture replaced in [place] Recently seen / treated by doctor: Yes - Related Data Allergies/Adverse Reactions: Penicillins Allergy (Verified 10/28/11 14:18) prochlorperazine [From Compazine] Adverse Reaction (Verified 05/24/16 17:51) Past Medical History - Social History Smoking Status: Never Smoker Cigarette use (# per day): No Chew tobacco use (# tins/day): No Smoking Education Provided: No Family History: CAD, Hypertension - Past Medical History Cardiac Medical History: Reports: Hx Atrial Fibrillation, Hx Congestive Heart Failure, Hx Hypercholesterolemia, Hx Hypertension Denies: Hx Coronary Artery Disease, Hx Heart Attack Pulmonary Medical History: Denies: Hx Asthma, Hx Bronchitis, Hx COPD, Hx Pneumonia, Hx Tuberculosis Neurological Medical History: Denies: Hx Cerebrovascular Accident, Hx Seizures Musculoskeltal Medical History: Reports Hx Arthritis - knees and hips Psychiatric Medical History: Reports: Hx Depression - mild Past Surgical History: Reports: Hx Cardiac Surgery - pacemaker, Hx Hysterectomy , Hx Pacemaker, Hx Valve Replacement - Mitral valve 1994 - Immunizations Hx Diphtheria, Pertussis, Tetanus Vaccination: Yes Hx Pneumococcal Vaccination: 06/21/09 Review of Systems - Review of Systems Notes: REVIEW OF SYSTEMS: CONSTITUTIONAL : Denies fever, chills, or sweats. Denies recent illness. EENT: Denies eye, ear, throat, or mouth pain or symptoms. Denies nasal or sinus congestion or discharge. Denies throat, tongue, or mouth swelling or difficulty swallowing. CARDIOVASCULAR: Denies chest pain. Denies palpitations or racing or irregular heart beat. Denies ankle edema. RESPIRATORY: Denies cough, cold, or chest congestion. Denies shortness of breath, difficulty breathing, or wheezing. GASTROINTESTINAL: Denies abdominal pain or distention. Denies nausea, vomiting , or diarrhea. Denies blood in vomitus, stools, or per rectum. Denies black, tarry stools. Denies constipation. GENITOURINARY: Denies difficulty urinating, painful urination, burning, frequency, blood in urine, or discharge. FEMALE GENITOURINARY: Denies vaginal bleeding, heavy or abnormal periods, irregular periods. Denies vaginal discharge or odor. MUSCULOSKELETAL: Admits to left hip pain SKIN: Denies rash, lesions or sores. HEMATOLOGIC : Denies easy bruising or bleeding. LYMPHATIC: Denies swollen, enlarged glands. NEUROLOGICAL: Denies confusion or altered mental status. Denies passing out or loss of consciousness. Denies dizziness or lightheadedness. Denies headache. Denies weakness or paralysis or loss of use of either side. Denies problems with gait or speech. Denies sensory loss, numbness, or tingling. Denies seizures. PSYCHIATRIC: Denies anxiety or stress. Denies depression, suicidal ideation, or homicidal ideation. ALL OTHER SYSTEMS REVIEWED AND NEGATIVE. PHYSICAL EXAMINATION: GENERAL: Well-appearing, well-nourished and in no acute distress. HEAD: Atraumatic, normocephalic. EYES: Pupils equal round and reactive to light, extraocular movements intact, conjunctiva are normal. ENT: Nares patent, oropharynx clear without exudates. Moist mucous membranes. NECK: Normal range of motion, supple without lymphadenopathy LUNGS: Breath sounds clear to auscultation bilaterally and equal. No wheezes rales or rhonchi. HEART: Regular rate and rhythm without murmurs ABDOMEN: Soft, nontender, nondistended abdomen. No guarding, no rebound. No masses appreciated. Female : deferred Musculoskeletal: Limited range of motion of the left hip secondary to pain leg is not shortened NEUROLOGICAL: Cranial nerves grossly intact. Normal speech, normal gait. Normal sensory, motor exams PSYCH: Normal mood, normal affect. SKIN: Warm, Dry, normal turgor, no rashes or lesions noted. Dictation was performed using [employer] recognition software Course - Re-evaluation Re-evalutation: 06/28/17 18:52 I had a very extensive discussion with son regarding my concerns of a hip fracture, patient was immediately given pain medication CTs were performed and a left femoral neck fracture was noted. I did speak with the patient's son regarding transfer at the request were staying here for surgical intervention, I did contact Dr. Valladares we did evaluate the patient emergency department believes he can take care of the surgery here. Family prefers to go to [place] due to rehab, therefore I did contact the transfer center and the ED physician requests further CT imaging of abdomen and chest even though x-ray and pelvic CT were negative except for the femur fracture. Therefore CTs were reperformed, no other abnormality was noted, an ovarian cyst was found on the initial CT and this finding was provided to the son for further outpatient evaluation. Decision was made to transfer the patient in the ED physician at [place] did take the patient as a trauma transfer - Laboratory Result Diagrams: 06/27/17 13:50 06/27/17 13:50 Laboratory results interpreted by me: 06/27/17 06/27/17 06/27/17 13:50 13:50 13:50 RBC 3.26 L Hgb 10.2 L Hct 30.8 L RDW 14.7 H Plt Count 105 L PT 25.3 H Sodium 135.6 L Chloride 97 L Urine Blood 06/27/17 13:50 RBC Hgb Hct RDW Plt Count PT Sodium Chloride Urine Blood MODERATE H - Diagnostic Test Radiology reviewed: Image reviewed, Reports reviewed Discharge - Discharge Clinical Impression: Hip fracture Qualifiers: Encounter type: initial encounter Fracture type: closed Laterality: left Qualified Code(s): S72.002A - Fracture of unspecified part of neck of left femur , initial encounter for closed fracture Condition: Stable Disposition: [facility] Referrals: HANSEL REID MD [Primary Care Provider] - Follow up as needed
--- NOTE | 2017-06-28 09:24 | RADIOLOGY REPORT (SQ) ---
EXAM DESCRIPTION: CT CHEST WITH COMPLETED DATE/TIME: 06/28/2017 2:12 am REASON FOR STUDY: INJURY CONTRAST TYPE AND DOSE: Unknown RENAL FUNCTION: Unknown COMPARISON: None. TECHNIQUE: CT scan of the chest performed using helical scanning technique with dynamic intravenous contrast injection. Images reviewed with lung, soft tissue and bone windows. Reconstructed coronal a nd sagittal MPR images reviewed. All images stored on PACS. All CT scanners at this facility use dose modulation, iterative reconstruction, and/or weight based d osing when appropriate to reduce radiation dose to as low as reasonably achievable (ALARA). [facility]: [facility] CareDose [facility]: Dose Right [facility]: [employer]: Syn[employer]ogue RADIATION DOSE: . LIMITATIONS: None. FINDINGS: AXILLAE: No adenopathy. CHEST WALL: No masses. No subcutaneous air. LUNGS: Basilar atelectasis. PLEURA: No effusions. No calcifications. THYROID: No masses or significant asymmetry. HILAR AND MEDIASTINAL STRUCTURES: No identified masses or abnormal nodes. AORTA AND GREAT VESSELS: No aneurysm. No dissection. PULMONARY ARTERIES: No identified pulmonary emboli. Study not optimized for the pulmonary arteries. HEART: No pericardial effusion. HARDWARE AND LIFELINES: Pacemaker defibrillator. BONES: No significant finding. OTHER: No other significant finding. IMPRESSION: Basilar atelectasis. No acute posttraumatic changes. COMPARISON: None. RADIATION DOSE: mGy. TECHNIQUE: CT scan of the abdomen and pelvis performed with intravenous and no contrast using helica l scanning technique with dynamic intravenous contrast injection. Images reviewed with lung, soft ti ssue and bone windows. Reconstructed coronal and sagittal MPR images reviewed. Delayed images for e valuation of the urinary system also acquired and evaluated. All images stored on PACS. All CT scanners at this facility use dose modulation, iterative reconstruction, and/or weight based d osing when appropriate to reduce radiation dose to as low as reasonably achievable (ALARA). [facility]: Dose Right [facility]: Dose [facility]: [employer] 4D [facility]: Synclogue FINDINGS: LIVER: Normal size. No masses. No dilated ducts. SPLEEN: Normal size. No focal lesions. PANCREAS: No masses. No significant calcifications. No adjacent inflammation or peripancreatic flui d collections. Pancreatic duct not dilated. GALLBLADDER: No identified stones by CT criteria. No inflammatory changes to suggest cholecystitis. ADRENAL GLANDS: No significant masses or asymmetry. RIGHT KIDNEY AND URETER: No solid masses. No significant calcifications. No hydronephrosis or hyd roureter. LEFT KIDNEY AND URETER: No solid masses. No significant calcifications. No hydronephrosis or hydr oureter. AORTA AND VESSELS: No aneurysm. No dissection. Renal arteries, SMA, celiac without stenosis. RETROPERITONEUM: No retroperitoneal adenopathy, hemorrhage or masses. LARGE AND SMALL BOWEL: No dilatation. No masses. No wall thickening. APPENDIX: Not visualized. ABDOMINAL WALL: No hernia or masses. PERITONEAL CAVITY: No free air. No free fluid. No peritoneal implants or masses. PELVIS: No mass or free fluid. Normal bladder. BONES: No significant or acute findings. OTHER: No other significant finding. IMPRESSION: No acute intra-abdominal process. TECHNICAL DOCUMENTATION: JOB ID: [id number] Quality ID # [id number]: Final reports with documentation of one or more dose reduction techniques (e.g., Au tomated exposure control, adjustment of the mA and/or kV according to patient size, use of iterative reconstruction technique) 2010 [employer]- All Rights Reserved
--- NOTE | 2017-06-28 09:53 | RADIOLOGY REPORT (SQ) ---
EXAM DESCRIPTION: CT CERVICAL SPINE WITHOUT COMPLETED DATE/TIME: 06/28/2017 2:12 am REASON FOR STUDY: INJURY COMPARISON: None. TECHNIQUE: Axial images acquired through the cervical spine without intravenous contrast. Images re viewed with lung, soft tissue and bone windows. Reconstructed coronal and sagittal MPR images review ed. Images stored on PACS. All CT scanners at this facility use dose modulation, iterative reconstruction, and/or weight based d osing when appropriate to reduce radiation dose to as low as reasonably achievable (ALARA). [facility]: Dose Right [facility]: CareDose [facility]: Dose Right [facility]: Teradose 4D [facility]: [employer]Systems RADIATION DOSE: mGy. LIMITATIONS: None. FINDINGS: ALIGNMENT: Anatomic. MINERALIZATION: Normal. VERTEBRAL BODIES: Fusion of the C5 through C7 vertebral bodies. No fractures or dislocation. DISCS: Multilevel disc space narrowing with osteophytes. FACETS, LATERAL MASSES, POSTERIOR ELEMENTS: Facet arthropathy. No fractures. No dislocation. No ac kathryn findings. HARDWARE: None in the spine. VISUALIZED RIBS: No fractures. LUNG APICES AND SOFT TISSUES: No significant or acute findings. OTHER: No other significant finding. IMPRESSION: CHRONIC DEGENERATIVE CHANGES. NO ACUTE FINDINGS. TECHNICAL DOCUMENTATION: JOB ID: [id number] [facility] [id number]: Final reports with documentation of one or more dose reduction techniques (e.g., Automate d exposure control, adjustment of the mA and/or kV according to patient size, use of iterative recons truction technique) 2010 [employer]- All Rights Reserved
--- NOTE | 2017-06-28 09:54 | RADIOLOGY REPORT (SQ) ---
EXAM DESCRIPTION: CT HEAD WITHOUT COMPLETED DATE/TIME: 06/28/2017 2:12 am REASON FOR STUDY: INJURY COMPARISON: None. TECHNIQUE: Axial images acquired through the brain without intravenous contrast. Images reviewed wi th bone, brain and subdural windows. Images stored on PACS. All CT scanners at this facility use dose modulation, iterative reconstruction, and/or weight based d osing when appropriate to reduce radiation dose to as low as reasonably achievable (ALARA). [facility]: Dose Right [facility]: CareDose [facility]: Dose Right [facility]: Teradose 4D [facility]: Web[employer]ar RADIATION DOSE: mGy. LIMITATIONS: None. FINDINGS: VENTRICLES: Prominent. CEREBRUM: No masses. No hemorrhage. No midline shift. Areas of low density in the white matter mos t likely due to chronic micro-vascular ischemic change. No evidence for acute infarction. CEREBELLUM: No masses. No hemorrhage. No alteration of density. No evidence for acute infarction. EXTRAAXIAL SPACES: Mild age-related involutional change. No fluid collections. No masses. ORBITS AND GLOBE: No intra- or extraconal masses. Normal contour of globe without masses. CALVARIUM: No fracture. PARANASAL SINUSES: No fluid or mucosal thickening. SOFT TISSUES: No mass or hematoma. OTHER: No other significant finding. IMPRESSION: NO ACUTE INTRACRANIAL PROCESS OR FRACTURE IDENTIFIED. EVIDENCE OF ACUTE STROKE: NO. TECHNICAL DOCUMENTATION: JOB ID: [id number] Quality ID # [id number]: Final reports with documentation of one or more dose reduction techniques (e.g., Au tomated exposure control, adjustment of the mA and/or kV according to patient size, use of iterative reconstruction technique) 2010 [employer]- All Rights Reserved
--- NOTE | 2017-06-28 09:55 | RADIOLOGY REPORT (SQ) ---
EXAM DESCRIPTION: CT PELVIS WITHOUT COMPLETED DATE/TIME: 06/28/2017 2:12 am REASON FOR STUDY: INJURY COMPARISON: None. EXAM PARAMETERS: TECHNIQUE: CT scan of the pelvis performed without intravenous or oral contrast. I mages reviewed with soft tissue and bone windows. Reconstructed coronal and sagittal MPR images revi ewed. All images stored on PACS. All CT scanners at this facility use dose modulation, iterative reconstruction, and/or weight based d osing when appropriate to reduce radiation dose to as low as reasonably achievable (ALARA). [facility]: Dose Right [facility]: [employer]Care [facility]: Dose Right [facility]: Teradose 4D [facility]: [employer] RADIATION DOSE: mGy. LIMITATIONS: None. FINDINGS: PELVIC BONES: No acute fracture. No worrisome bone lesions. VISUALIZED SPINE: No acute findings. HIP(S): Left subcapital femoral neck fracture. Total right hip arthroplasty without hardware complic ation. PELVIC SOFT TISSUES: 3.3 cm cyst left ovary. Otherwise unremarkable. EXTRAPELVIC SOFT TISSUES: No significant findings. OTHER: No other significant finding. IMPRESSION: LEFT FEMORAL NECK FRACTURE. 3.3 CM LEFT OVARIAN CYST. PATIENT WILL REQUIRE FOLLOW-UP PELVIC ULTRASOUND IN [facility] TECHNICAL DOCUMENTATION: JOB ID: [id number] [facility] [id number]: Final reports with documentation of one or more dose reduction techniques (e.g., Automate d exposure control, adjustment of the mA and/or kV according to patient size, use of iterative recons truction technique) 2010 [email or web address]- All Rights Reserved
[2017-06-28 12:19] LABS: CALCIUM 9.4 mg/dL (8.4-10.2)
[2017-06-28 12:20] LABS: ANION GAP 9 (5-19); BLOOD UREA NITROGEN 18 mg/dL (7-20); CARBON DIOXIDE 30 mmol/L (22-30); CHLORIDE 97 mmol/L (98-107); GLUCOSE 88 mg/dL (75-110); POTASSIUM 4.2 mmol/L (3.6-5.0); SODIUM 135.6 mmol/L (137-145)
[2017-06-28 12:21] LABS: ALANINE AMINOTRANSFERASE 34 U/L (9-52); ALBUMIN 4.1 g/dL (3.5-5.0); ALKALINE PHOSPHATASE 93 U/L (38-126); ASPARTATE AMINO TRANSFERASE 35 U/L (14-36); BILIRUBIN,DIRECT 0.3 mg/dL (0.0-0.4); BILIRUBIN,TOTAL 0.7 mg/dL (0.2-1.3)
== END 2017-06-27 17:50 | disposition short-term general hospital (02) ==
LOC: ER 13:03
DX: S72.002A Fracture of unspecified part of neck of left femur, initial encounter for closed fracture (principal); M25.552 Pain in left hip; Z79.01 Long term (current) use of anticoagulants; X58.XXXA Exposure to other specified factors, initial encounter
CPT/HCPCS: 36415; 70450; 71046; 71260; 72125; 72192; 74177; 80053; 81001; 85025; 85610; 93005; 93010; 96374; 99285

== ENCOUNTER → 2017-09-01 | Outpatient (CLI) | payer MEDICARE, BC ==
[2017-09-01 10:34] LABS: INTERNATIONAL RATION (INR) 1.64; PROTHROMBIN TIME 20.4 SEC (11.4-15.4)
[2017-09-01 10:37] LABS: ALANINE AMINOTRANSFERASE 28 U/L (9-52); ALBUMIN 3.5 g/dL (3.5-5.0); ALKALINE PHOSPHATASE 122 U/L (38-126); ANION GAP 12 (5-19); ASPARTATE AMINO TRANSFERASE 34 U/L (14-36); BILIRUBIN,DIRECT 0.3 mg/dL (0.0-0.4); BILIRUBIN,TOTAL 0.8 mg/dL (0.2-1.3); BLOOD UREA NITROGEN 21 mg/dL (7-20); CALCIUM 9.3 mg/dL (8.4-10.2); CARBON DIOXIDE 26 mmol/L (22-30); CHLORIDE 103 mmol/L (98-107); CHOLESTEROL 107.66 mg/dL (0-200); GLUCOSE 82 mg/dL (75-110); POTASSIUM 3.9 mmol/L (3.6-5.0); SODIUM 140.6 mmol/L (137-145); TOTAL PROTEIN 6.1 g/dL (6.3-8.2); TRIGLYCERIDES 59 mg/dL (<150)
[2017-09-01 10:38] LABS: HEMATOCRIT 25.5 % (36.0-47.0); HEMOGLOBIN 8.5 g/dL (12.0-15.5); MEAN CORPUSCULAR HEMOGLOBIN 32.3 pg (27.0-33.4); MEAN CORPUSCULAR HGB CONC 33.5 g/dL (32.0-36.0); MEAN CORPUSCULAR VOLUME 96 fl (80-97); RED BLOOD COUNT 2.64 10^6/uL (3.72-5.28); RED CELL DISTRIBUTION WIDTH 21.9 % (11.5-14.0); WHITE BLOOD COUNT 4.4 10^3/uL (4.0-10.5)
[2017-09-01 10:48] LABS: DIRECT LDL 46 mg/dL (<100)
[2017-09-01 11:05] LABS: PLATELET COUNT 89 10^3/uL (150-450)
== END ==
LOC: OD 09:17
PROVIDERS: ATTEND Internal Medicine Cardiovascular Disease
DX: E78.00 Pure hypercholesterolemia, unspecified (principal); I50.22 Chronic systolic (congestive) heart failure; R06.02 Shortness of breath; I48.2 Chronic atrial fibrillation; Z79.01 Long term (current) use of anticoagulants; Z79.899 Other long term (current) drug therapy; D64.9 Anemia, unspecified
CPT/HCPCS: 36415; 80048; 80061; 80076; 83880; 85027; 85610

== ENCOUNTER 2017-09-06 18:57 | Inpatient (IN) | payer MEDICARE, BC ==
--- NOTE | 2017-09-06 19:37 | RADIOLOGY REPORT (SQ) ---
EXAM DESCRIPTION: CHEST SINGLE VIEW COMPLETED DATE/TIME: 09/06/2017 7:29 pm REASON FOR STUDY: shortness of breath, cp COMPARISON: 06/27/2017 EXAM PARAMETERS: NUMBER OF VIEWS: One view. TECHNIQUE: Single frontal radiographic view of the chest acquired. RADIATION DOSE: NA LIMITATIONS: None. FINDINGS: LUNGS AND PLEURA: The lungs are hyperexpanded. There are no infiltrates or effusions. Th ere is no mass. MEDIASTINUM AND HILAR STRUCTURES: No masses. Contour normal. HEART AND VASCULAR STRUCTURES: Cardiomegaly with no evidence of failure. BONES: No acute findings. HARDWARE: Pacemaker/ defibrillator. Sternotomy wires. OTHER: No other significant finding. IMPRESSION: Cardiomegaly with no liza CHF. Chronic lung changes. TECHNICAL DOCUMENTATION: JOB ID: [id number] [employer]- All Rights Reserved Reading location - IP/workstation name: [email or web address]
[2017-09-06] MEDS ORDERED: FUROSEMIDE INJ/PF 20 MG/2 ML SDV IV ONE (20:15)
[2017-09-06 20:16] LABS: ABSOLUTE EOSINOPHILS # (AUTO) 0.2 10^3/uL (0.0-0.6); ABSOLUTE LYMPHOCYTES (AUTO) 1.2 10^3/uL (0.5-4.7); ABSOLUTE MONOCYTES (AUTO) 0.6 10^3/uL (0.1-1.4); ABSOLUTE NEUT (AUTO) 3.1 10^3/uL (1.7-8.2); BASOPHILS % (AUTO) 0.5 % (0-2); EOSINOPHILS % (AUTO) 3.2 % (0-6); HEMATOCRIT 31.9 % (36.0-47.0); HEMOGLOBIN 10.7 g/dL (12.0-15.5); LYMPHOCYTES % (AUTO) 23.3 % (13-45); MEAN CORPUSCULAR HEMOGLOBIN 31.8 pg (27.0-33.4); MEAN CORPUSCULAR HGB CONC 33.5 g/dL (32.0-36.0); MEAN CORPUSCULAR VOLUME 95 fl (80-97); MONOCYTES % (AUTO) 12.1 % (3-13); RED BLOOD COUNT 3.36 10^6/uL (3.72-5.28); RED CELL DISTRIBUTION WIDTH 21.3 % (11.5-14.0); SEGMENTED NEUTROPHILS % (AUTO) 60.9 % (42-78); TOTAL CELLS COUNTED % (AUTO) 100 %; WHITE BLOOD COUNT 5.1 10^3/uL (4.0-10.5)
--- NOTE | 2017-09-06 20:19 | ER Document Report ---
ED General - General Chief Complaint: Shortness Of Breath Stated Complaint: HEART PALPITATIONS,SHORTNESS OF BREATH Time Seen by Provider: 09/06/17 19:12 Notes: Patient is an 86 year old female with a past medical history of atrial fibrillation currently anticoagulated on Coumadin, congestive heart failure, history of myelodysplasia requiring recurrent transfusions most recently on the 16th of this month who presents with 48 hours of progressively worsening shortness of breath orthopnea. 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 Patient denies a history of similar symptoms in the past. Her shortness of breath is worsened by lying flat. Nothing seems to improve her symptoms. She has been taking her torsemide as directed. She denies dietary indiscretions. She has been wearing compression stockings to her bilateral lower extremities due to increasing edema to the area. She has had a 10 pound weight gain in the past 2 weeks. She denies any distinct chest pain although notes intermittent chest heaviness. She is accompanied by her son. TRAVEL OUTSIDE OF THE [place] IN LAST 30 DAYS: No - Related Data Allergies/Adverse Reactions: amlodipine Allergy (Verified 09/06/17 19:00) lisinopril Allergy (Verified 09/06/17 19:00) metoprolol Allergy (Verified 09/06/17 19:00) Penicillins Allergy (Verified 09/06/17 19:00) ramipril Allergy (Verified 09/06/17 19:00) simvastatin [From Zocor] Allergy (Verified 09/06/17 19:00) vancomycin Allergy (Verified 09/06/17 19:00) prochlorperazine [From Compazine] Adverse Reaction (Verified 09/06/17 19:00) Past Medical History - General Information source: Patient - Social History Smoking Status: Never Smoker Chew tobacco use (# tins/day): No Frequency of alcohol use: None Drug Abuse: None Lives with: Family Family History: CAD, Hypertension Patient has suicidal ideation: No Patient has homicidal ideation: No - Past Medical History Cardiac Medical History: Reports: Hx Atrial Fibrillation, Hx Congestive Heart Failure, Hx Hypercholesterolemia, Hx Hypertension Denies: Hx Coronary Artery Disease, Hx Heart Attack Pulmonary Medical History: Denies: Hx Asthma, Hx Bronchitis, Hx COPD, Hx Pneumonia, Hx Tuberculosis Neurological Medical History: Denies: Hx Cerebrovascular Accident, Hx Seizures Renal/ Medical History: Denies: Hx Peritoneal Dialysis Musculoskeltal Medical History: Reports Hx Arthritis - knees and hips Psychiatric Medical History: Reports: Hx Depression - mild Past Surgical History: Reports: Hx Cardiac Surgery - pacemaker, Hx Hysterectomy , Hx Pacemaker, Hx Valve Replacement - Mitral valve 1994 - Immunizations Hx Diphtheria, Pertussis, Tetanus Vaccination: Yes Hx Pneumococcal Vaccination: 06/21/09 Review of Systems - Review of Systems Notes: Constitutional: Negative for fever. HENT: Negative for sore throat. Eyes: Negative for visual changes. Cardiovascular: Positive for chest heaviness Respiratory: Positive for shortness of breath and orthopnea Gastrointestinal: Negative for abdominal pain, vomiting or diarrhea. Genitourinary: Negative for dysuria. Musculoskeletal: Positive for bilateral lower extremity edema Skin: Negative for rash. Neurological: Negative for headaches, weakness or numbness. 10 point ROS negative except as marked above and in HPI. Physical Exam - Vital signs Vitals: Resp Pulse Ox 20 97 09/06/17 19:16 09/06/17 19:16 Interpretation: Tachypneic Notes: PHYSICAL EXAMINATION: GENERAL: Well-appearing, well-nourished and in no acute distress. HEAD: Atraumatic, normocephalic. EYES: Pupils equal round and reactive to light, extraocular movements intact, sclera anicteric, conjunctiva are normal. ENT: nares patent, oropharynx clear without exudates. Moist mucous membranes. NECK: Normal range of motion, supple without lymphadenopathy LUNGS: Mildly diminished breath sounds at the bases bilaterally. No distress. HEART: Irregularly irregular rate and rhythm without murmurs ABDOMEN: Soft, nontender, normoactive bowel sounds. No guarding, no rebound. No masses appreciated. EXTREMITIES: Normal range of motion, 3+ pitting edema that is equal and symmetric in the bilateral lower extremities NEUROLOGICAL: No focal neurological deficits. Moves all extremities spontaneously and on command. PSYCH: Normal mood, normal affect. SKIN: Warm, Dry, normal turgor, no rashes or lesions noted. Course - Re-evaluation Re-evalutation: 09/06/17 20:15 Patient presents with 48 hours of progressively worsening orthopnea and exertional shortness of breath found to have gained 10 pounds in the past 2 weeks by her fiberglass boat parts finisher Dr. Flores. She was referred to the emergency department for hospitalization. Patient denies any chest pain although she does state that she has some chest tightness. She does have 3+ pitting edema in the bilateral lower extremities. She has been taking her torsemide as directed. Chest x-ray shows CHF without overt pulmonary edema but does show some vascular congestion. Labs are pending. EKG with A. fib with intermittent PVCs although no ischemic changes. Patient does not. Although however currently her heart rate is maintaining well into the 80s and 90s. No indication for IV diltiazem and metoprolol at this time. 09/06/17 21:39 Patient continues to do well no hypotension or rapid ventricular response. Suspect likely clinical picture secondary to volume overload secondary to receiving a blood transfusion on the for hemoglobin 8.9 at that time. She is doing well with diuresis after receiving furosemide. I discussed this case with Dr. Fernandez and he has accepted her for admission. - Vital Signs Vital signs: Temp Pulse Resp BP Pulse Ox 97.8 F 78 17 131/85 H 100 09/06/17 23:33 09/07/17 02:00 09/06/17 23:33 09/06/17 23:33 09/06/17 23:33 - Laboratory Result Diagrams: 09/06/17 19:55 09/06/17 19:55 Laboratory results interpreted by me: 09/06/17 09/06/17 09/06/17 19:55 19:55 19:55 RBC 3.36 L Hgb 10.7 L Hct 31.9 L RDW 21.3 H Plt Count 92 L PT APTT Sodium 136.0 L Potassium 3.5 L Total Bilirubin 1.4 H AST 50 H Alkaline Phosphatase 131 H NT-Pro-B Natriuret Pep 5200 H 09/06/17 19:55 RBC Hgb Hct RDW Plt Count PT 16.7 H APTT 42.4 H Sodium Potassium Total Bilirubin AST Alkaline Phosphatase NT-Pro-B Natriuret Pep - Diagnostic Test Radiology reviewed: Image reviewed, Reports reviewed Radiology results interpreted by me: 09/06/17 20:19 Chest x-ray: Vascular congestion without overt pulmonary edema. - EKG Interpretation by Me Additional EKG results interpreted by me: 09/06/17 20:19 A. fib, intermittent PVCs, rate 90. No ST elevations or depressions. Discharge - Discharge Clinical Impression: Chronic atrial fibrillation, Anticoagulated on Coumadin, Orthopnea Volume overload Qualifiers: Hypervolemia type: transfusion-associated Qualified Code(s): E87.71 - Transfusion associated circulatory overload Congestive heart failure Qualifiers: Heart failure type: unspecified Heart failure chronicity: acute on chronic Qualified Code(s): I50.9 - Heart failure, unspecified Condition: Fair Disposition: ADMITTED INPATIENT Admitting Provider: Hospitalist Unit Admitted: Telemetry
[2017-09-06 20:27] LABS: ALANINE AMINOTRANSFERASE 36 U/L (9-52); ALBUMIN 3.5 g/dL (3.5-5.0); ALKALINE PHOSPHATASE 131 U/L (38-126); ANION GAP 7 (5-19); ASPARTATE AMINO TRANSFERASE 50 U/L (14-36); BILIRUBIN,DIRECT 0.4 mg/dL (0.0-0.4); BILIRUBIN,TOTAL 1.4 mg/dL (0.2-1.3); BLOOD UREA NITROGEN 14 mg/dL (7-20); CALCIUM 9.2 mg/dL (8.4-10.2); CARBON DIOXIDE 28 mmol/L (22-30); CHLORIDE 101 mmol/L (98-107); CREATINE KINASE 83 U/L (30-135); GLUCOSE 102 mg/dL (75-110); POTASSIUM 3.5 mmol/L (3.6-5.0); TOTAL PROTEIN 6.4 g/dL (6.3-8.2)
[2017-09-06 20:38] LABS: PLATELET COUNT 92 10^3/uL (150-450)
[2017-09-06 20:50] LABS: CREATINE KINASE MB 0.91 ng/mL (<4.55); TROPONIN I 0.014 ng/mL
[2017-09-06 21:19] LABS: INTERNATIONAL RATION (INR) 1.27; PARTIAL THROMBOPLASTIN TIME 42.4 SEC (23.5-35.8); PROTHROMBIN TIME 16.7 SEC (11.4-15.4)
[2017-09-06] MEDS ORDERED: MAGNESIUM HYDROXIDE SUSP 30 ML UDCUP PO PRN (21:43)
[2017-09-06] MEDS ORDERED: MAG HYDROX/AL HYDROX/SIMETH SUSP 30 ML UDCUP PO PRN (21:43)
[2017-09-06] MEDS ORDERED: FUROSEMIDE INJ/PF 40 MG/4 ML SDV IV SCH (22:00)
[2017-09-06] MEDS ORDERED: WARFARIN SODIUM 5 MG TABLET PO SCH (22:00)
[2017-09-06] MEDS ORDERED: FUROSEMIDE INJ/PF 20 MG/2 ML SDV IV SCH (22:00)
[2017-09-06] MEDS ORDERED: NITROGLYCERIN 2.5 MG (0.1 MG/HR) PATCH.TD24 TD ONE (22:15)
[2017-09-06] MEDS ORDERED: LACTULOSE SYRUP 20 GM/30 ML UDCUP PO ONE (23:16)
--- NOTE | 2017-09-06 23:55 | EKG REPORT ---
SEVERITY:- ABNORMAL ECG - ATRIAL FIBRILLATION VENTRICULAR PREMATURE COMPLEX NONSPECIFIC INTRAVENTRICULAR CONDUCTION DELAY BORDERLINE ST DEPRESSION, DIFFUSE LEADS : Confirmed by: Samson Seals 06-Sep-2017 23:54:45
[2017-09-07] MEDS ORDERED: NITROGLYCERIN 2.5 MG (0.1 MG/HR) PATCH.TD24 ONE (01:10)
[2017-09-07] MEDS: CARVEDILOL 12.5 MG TABLET PO SCH ×2 (01:18→09:47)
[2017-09-07] MEDS: POTASSIUM CHLORIDE 10 MEQ TABLET.SA PO SCH ×3 (01:18→22:05)
[2017-09-07] MEDS: LORAZEPAM 0.5 MG TABLET PO SCH ×2 (01:18→22:05)
[2017-09-07] MEDS: ATORVASTATIN CALCIUM 20 MG TABLET PO SCH ×2 (01:19→22:05)
[2017-09-07] MEDS: HEPARIN SOD (PORCINE) 5,000 UNIT/ML 1 ML SYRINGE SUBCUT SCH ×2 (01:36→05:47)
[2017-09-07 02:46] LABS: CREATINE KINASE MB 0.75 ng/mL (<4.55); TROPONIN I 0.018 ng/mL
[2017-09-07] MEDS ORDERED: BIMATOPROST 0.01% OPH SOLN 2.5 ML/BOTTLE OU ONE (04:15)
--- NOTE | 2017-09-07 06:29 | PDOC H&P ---
History of Present Illness Admission Date/PCP: 09/06/17 22:04 HANSEL REID, Patient complains of: Shortness of breath and palpitations History of Present Illness: ALESIA GRECO is a 86 year old female with a past medical history of pulmonary hypertension, myelodysplasia, anemia, chronic debility and atrial fibrillation without anticoagulation secondary to recurrent falls. Patient presents with 48 hours of palpitations, orthopnea and weight gain prompting to seek evaluation with her academic support director . She is found to have A. fib with RVR, and a gain of 10 pounds in 2 weeks. Patient denies chest pain nausea vomiting or diaphoresis. Coreg has not resulted in optimal control at current dose which is still unclear. Past Medical History Cardiac Medical History: Reports: Atrial Fibrillation, Congestive Heart Failure , Hyperlipidema, Hypertension Denies: Coronary Artery Disease, Myocardial Infarction Pulmonary Medical History: Denies: Asthma, Bronchitis, Chronic Obstructive Pulmonary Disease (COPD), Pneumonia, Tuberculosis Neurological Medical History: Denies: Seizures Musculoskeltal Medical History: Reports: Arthritis - knees and hips Psychiatric Medical History: Reports: Depression - mild Hematology: Reports: Anemia Past Surgical History Past Surgical History: Reports: Hysterectomy, Pacemaker, Valve Replacement - Mitral valve 1994 Social History Information Source: Patient, Emergency Med Personnel, [facility] Records, Outside Facility Records Lives with: Family Smoking Status: Never Smoker Frequency of Alcohol Use: None Hx Recreational Drug Use: No Drugs: None Hx Prescription Drug Abuse: No - Advance Directive Resuscitation Status: Full Code Family History Family History: CAD, Hypertension Parental Family History Reviewed: Yes Children Family History Reviewed: Yes Sibling(s) Family History Reviewed.: Yes Medication/Allergy Home Medications: Atorvastatin Calcium [Lipitor 20 mg Tablet] 20 mg PO QHS 09/06/17 Carvedilol [Coreg 12.5 mg Tablet] 12.5 mg PO Q12 09/06/17 Docusate Sodium [Colace] 100 mg PO TID 09/06/17 Escitalopram Oxalate [Lexapro 10 mg Tablet] 10 mg PO QAM 09/06/17 Lorazepam [Ativan 0.5 mg Tablet] 0.5 mg PO QHS 09/06/17 Pregabalin [Lyrica] 150 mg PO BID 09/06/17 Torsemide 5 mg PO QAM 09/06/17 Warfarin Sodium [Coumadin 5 mg Tablet] 5 mg PO QHS 09/06/17 Betaxolol HCl [Betoptic S] 1 drop BTH_EYE BID 09/07/17 Bimatoprost [Lumigan] 1 drop BTH_EYE QHS 09/07/17 Allergies/Adverse Reactions: amlodipine Allergy (Verified 09/06/17 19:00) lisinopril Allergy (Verified 09/06/17 19:00) metoprolol Allergy (Verified 09/06/17 19:00) Penicillins Allergy (Verified 09/06/17 19:00) ramipril Allergy (Verified 09/06/17 19:00) simvastatin [From Zocor] Allergy (Verified 09/06/17 19:00) vancomycin Allergy (Verified 09/06/17 19:00) prochlorperazine [From Compazine] Adverse Reaction (Verified 09/06/17 19:00) Review of Systems Constitutional: PRESENT: as per HPI, fatigue, weight gain. ABSENT: fever(s), headache(s), night sweats Eyes: ABSENT: visual disturbances Ears: ABSENT: hearing changes Cardiovascular: PRESENT: as per HPI, dyspnea on exertion, edema, orthropnea, palpitations. ABSENT: chest pain Respiratory: PRESENT: as per HPI, dyspnea. ABSENT: hemoptysis, sputum Gastrointestinal: PRESENT: constipation. ABSENT: abdominal pain, diarrhea, hematemesis, hematochezia, nausea, vomiting Genitourinary: ABSENT: dysuria, hematuria Musculoskeletal: ABSENT: joint swelling Integumentary: ABSENT: rash, wounds Neurological: ABSENT: abnormal gait, abnormal speech, confusion, dizziness, focal weakness, syncope Psychiatric: ABSENT: anxiety, depression, homidical ideation, suicidal ideation Endocrine: ABSENT: cold intolerance, heat intolerance, polydipsia, polyuria Hematologic/Lymphatic: PRESENT: easy bruising. ABSENT: easy bleeding Physical Exam Vital Signs: Temp Pulse Resp BP Pulse Ox 97.8 F 78 17 131/85 H 100 09/06/17 23:33 09/07/17 02:00 09/06/17 23:33 09/06/17 23:33 09/06/17 23:33 General appearance: PRESENT: cooperative, mild distress. ABSENT: morbidly obese , severe distress Head exam: PRESENT: atraumatic, normocephalic Eye exam: PRESENT: conjunctiva pink, EOMI, PERRLA. ABSENT: scleral icterus Ear exam: PRESENT: normal external ear exam Mouth exam: PRESENT: moist, tongue midline Neck exam: ABSENT: carotid bruit, JVD, lymphadenopathy, thyromegaly Respiratory exam: PRESENT: accessory muscle use, crackles, retraction, symmetrical, tachypnea Cardiovascular exam: PRESENT: irregular rhythm, +S1, +S2, tachycardia. ABSENT: gallop Pulses: PRESENT: normal dorsalis pedis pul Vascular exam: PRESENT: normal capillary refill GI/Abdominal exam: PRESENT: hypoactive bowel sounds. ABSENT: ascites, diminished bowel sounds, distended, firm, guarding, hernia Rectal exam: PRESENT: deferred Extremities exam: PRESENT: full ROM, +1 edema. ABSENT: calf tenderness, clubbing, pedal edema, tenderness Neurological exam: PRESENT: alert, awake, oriented to person, oriented to place , oriented to time, oriented to situation, CN II-XII grossly intact. ABSENT: motor sensory deficit Psychiatric exam: PRESENT: appropriate affect, normal mood. ABSENT: homicidal ideation, suicidal ideation Skin exam: PRESENT: dry, erythema, intact, warm. ABSENT: cyanosis, rash Results Laboratory Results: 09/07/17 09/07/17 01:59 01:59 Creatine Kinase 76 CK-MB (CK-2) 0.75 Troponin I 0.018 Impressions: Chest X-Ray 09/06/17 19:12 IMPRESSION: Cardiomegaly with no liza CHF. Chronic lung changes. Assessment & Plan - Diagnosis (1) CHF exacerbation Is this a current diagnosis for this admission?: Yes Plan: Likely secondary to A. fib with RVR, optimize beta-anupama and rate control, telemetry bed, gentle diuresis. Follow-up chemistry, cardiac enzymes and 2D echo (2) Chronic atrial fibrillation Is this a current diagnosis for this admission?: Yes Plan: A. fib with RVR optimize beta-anupama, no anticoagulation secondary to recurrent falls. (3) Constipation Is this a current diagnosis for this admission?: Yes Plan: Lactulose trial, Colace regiment (4) Anemia Is this a current diagnosis for this admission?: Yes Plan: Secondary to myelodysplasia, chronic and stable. Follow-up CBC (5) Hypokalemia Is this a current diagnosis for this admission?: Yes Plan: Secondary to loop diuretic, repletion and reevaluation chemistry. - Time Time Spent: 30 to 50 Minutes - Inpatient Certification Medical Necessity: Need Close Monitoring Due to Risk of Patient Decompensation
[2017-09-07] MEDS: ESCITALOPRAM OXALATE 10 MG TABLET PO SCH (08:11)
[2017-09-07 09:09] LABS: ABSOLUTE EOSINOPHILS # (AUTO) 0.2 10^3/uL (0.0-0.6); ABSOLUTE LYMPHOCYTES (AUTO) 1.2 10^3/uL (0.5-4.7); ABSOLUTE MONOCYTES (AUTO) 0.6 10^3/uL (0.1-1.4); ABSOLUTE NEUT (AUTO) 2.7 10^3/uL (1.7-8.2); BASOPHILS % (AUTO) 0.4 % (0-2); EOSINOPHILS % (AUTO) 3.6 % (0-6); HEMATOCRIT 28.6 % (36.0-47.0); HEMOGLOBIN 9.6 g/dL (12.0-15.5); LYMPHOCYTES % (AUTO) 25.4 % (13-45); MEAN CORPUSCULAR HEMOGLOBIN 31.8 pg (27.0-33.4); MEAN CORPUSCULAR HGB CONC 33.5 g/dL (32.0-36.0); MEAN CORPUSCULAR VOLUME 95 fl (80-97); MONOCYTES % (AUTO) 13.2 % (3-13); RED CELL DISTRIBUTION WIDTH 20.7 % (11.5-14.0); SEGMENTED NEUTROPHILS % (AUTO) 57.4 % (42-78); TOTAL CELLS COUNTED % (AUTO) 100 %; WHITE BLOOD COUNT 4.7 10^3/uL (4.0-10.5)
[2017-09-07 09:29] LABS: ANION GAP 7 (5-19); BLOOD UREA NITROGEN 11 mg/dL (7-20); CALCIUM 9.2 mg/dL (8.4-10.2); CARBON DIOXIDE 29 mmol/L (22-30); CHLORIDE 103 mmol/L (98-107); GLUCOSE 84 mg/dL (75-110); POTASSIUM 3.7 mmol/L (3.6-5.0); SODIUM 138.7 mmol/L (137-145)
[2017-09-07 09:36] LABS: CREATINE KINASE MB 0.65 ng/mL (<4.55); TROPONIN I 0.014 ng/mL
[2017-09-07] MEDS: DOCUSATE SODIUM 100 MG CAPSULE PO SCH ×3 (09:46→17:58)
[2017-09-07 09:48] LABS: PLATELET COUNT 86 10^3/uL (150-450)
[2017-09-07] MEDS ORDERED: ENOXAPARIN SODIUM INJ 40 MG/0.4 ML DISP.SYRIN SUBCUT SCH (10:00)
[2017-09-07] MEDS: FUROSEMIDE INJ/PF 20 MG/2 ML SDV IV SCH ×2 (11:56→22:03)
--- NOTE | 2017-09-07 13:15 | PDOC PROGRESS REPORT ---
Subjective Progress Note for:: 09/07/17 Subjective:: The patient states to feel much better. She is resting in bed comfortably. She denies any shortness of breath or chest pain. She had a significant amount of diureses. Reason For Visit: HEART FAILURE EXACERBATION, AFIB, VOLUME OVERLOAD, Physical Exam Vital Signs: Temp Pulse Resp BP Pulse Ox 98.6 F 66 18 103/41 L 99 09/07/17 08:00 09/07/17 08:00 09/07/17 08:00 09/07/17 08:00 09/07/17 08:00 Intake & Output 09/06/17 09/07/17 09/08/17 06:59 06:59 06:59 Intake Total 121 Output Total 2 Balance 119 Weight 63.8 kg 63.8 kg General appearance: PRESENT: mild distress Head exam: PRESENT: atraumatic Neck exam: ABSENT: carotid bruit Respiratory exam: PRESENT: crackles Cardiovascular exam: PRESENT: irregular rhythm, +S1, +S2 Pulses: PRESENT: +1 pedal pulses bilateral GI/Abdominal exam: PRESENT: normal bowel sounds, soft Extremities exam: PRESENT: pedal edema Musculoskeletal exam: PRESENT: ambulatory Neurological exam: PRESENT: alert, awake, oriented to person, oriented to place , oriented to time Results Laboratory Results: 09/07/17 08:49 09/07/17 08:49 09/07/17 09/07/17 08:49 08:49 WBC 4.7 RBC 3.00 L Hgb 9.6 L Hct 28.6 L MCV 95 MCH 31.8 MCHC 33.5 RDW 20.7 H Plt Count 86 L Seg Neutrophils % 57.4 Lymphocytes % 25.4 Monocytes % 13.2 H Eosinophils % 3.6 Basophils % 0.4 Absolute Neutrophils 2.7 Absolute Lymphocytes 1.2 Absolute Monocytes 0.6 Absolute Eosinophils 0.2 Absolute Basophils 0.0 Sodium 138.7 Potassium 3.7 Chloride 103 Carbon Dioxide 29 Anion Gap 7 BUN 11 Creatinine 0.55 Est GFR ( Amer) > 60 Est GFR (Non-Af Amer) > 60 Glucose 84 Calcium 9.2 09/07/17 09/07/17 09/07/17 01:59 01:59 08:49 Creatine Kinase 76 63 CK-MB (CK-2) 0.75 Troponin I 0.018 09/07/17 08:49 Creatine Kinase CK-MB (CK-2) 0.65 Troponin I 0.014 Impressions: Chest X-Ray 09/06/17 19:12 IMPRESSION: Cardiomegaly with no liza CHF. Chronic lung changes. Assessment & Plan - Diagnosis (1) Coronary artery disease Qualifiers: Coronary Disease-Associated Artery/Lesion type: [place] artery Associated angina: with stable angina Is this a current diagnosis for this admission?: Yes Plan: We will continue current medications (2) Peripheral arterial disease Is this a current diagnosis for this admission?: Yes Plan: Continue current treatment (3) Peripheral vascular disease Is this a current diagnosis for this admission?: Yes Plan: Compression stockings and leg elevation (4) Recurrent falls Is this a current diagnosis for this admission?: Yes Plan: Status post hip fracture with surgical repair. Discussed with hematology oncology and cardiology and will stop the anticoagulation because of the high risk of falls and bleed (5) Anemia Qualifiers: Anemia type: iron deficiency Iron deficiency anemia type: unspecified iron deficiency Qualified Code(s): D50.9 - Iron deficiency anemia, unspecified Is this a current diagnosis for this admission?: Yes Plan: The patient is status post transfusion will continue monitoring (6) Chronic atrial fibrillation Is this a current diagnosis for this admission?: Yes Plan: Continue current medications (7) Congestive heart failure Qualifiers: Heart failure type: unspecified Heart failure chronicity: acute on chronic Qualified Code(s): I50.9 - Heart failure, unspecified Is this a current diagnosis for this admission?: Yes Plan: We will continue with diuretics. Will evaluate fluid balance and will consider switching from IV to p.o. diuretics
[2017-09-07 15:00] LABS: CREATINE KINASE MB 0.84 ng/mL (<4.55); TROPONIN I 0.015 ng/mL
--- NOTE | 2017-09-07 18:59 | XCELERA REPORT ---
[address] [address] Transthoracic Echocardiogram Report Name: ALESIA GRECO Age: 86 yrs Gender: Female : 1930 Patient Status: Inpatient Patient Location: [address] [place] [address] Study Date: 09/07/2017 10:08 AM Height: 66 in Weight: 141 lb BSA: 1.7 m2 Procedure: A complete two-dimensional transthoracic echocardiogram was performed (2D, M-mode, spectral and color flow Doppler). The study was technically difficult with many images being suboptimal in quality. Reason For Study: volume overload Ordering Physician: ALEX BOLAND Performed By: Myrna Merrill Interpretation Summary The study was technically difficult with many images being suboptimal in quality. The left ventricular ejection fraction is normal. There is mild concentric left ventricular hypertrophy. The left ventricle is grossly normal size. Doppler measurements suggest pseudonormalized left ventricular relaxation, which is associated with grade II/IV or mild to moderate diastolic dysfunction Wall motion cannot be accurately commented on, but no definite regional wall motion abnormalities noted. The right ventricle is mild to moderately dilated. The right ventricular systolic function is mildly reduced. The right atrium is severely dilated. The left atrium is severely dilated. There is moderate mitral leaflet calcification. There is severe mitral annular calcification. There is mild to moderate mitral stenosis There is a mild amount of mitral regurgitation There is no aortic valve stenosis There is a mild amount of aortic regurgitation There is a moderate to severe amount of tricuspid regurgitation There is servere pulmonary hypertension by echo Right ventricular systolic pressure is estimated to be elevated at >60mmHg. There is no pericardial effusion. MMode/2D Measurements & Calculations RVDd: 3.4 cm LVIDd: 5.7 cmFS: 25.6 % Ao root diam: 3.0 cm IVSd: 1.0 cm LVIDs: 4.2 cmEDV(Teich): 158.5 ml LVPWd: 1.0 cmESV(Teich): 79.6 ml Ao root area: 7.1 cm2 EF(Teich): 49.7 % LA dimension: 5.6 cm LVOT diam: 2.0 cm LVOT area: 3.2 cm2 Doppler Measurements & Calculations MV E max lyly: MV P1/2t max lyly: Ao V2 max: AI max lyly: 182.0 cm/sec 182.0 cm/sec 160.2 cm/sec 380.1 cm/sec MV P1/2t: 86.6 msec Ao max PG: AI max PG: MVA(P1/2t): 2.5 cm2 10.3 mmHg 57.8 mmHg MV dec slope: SANDEEP(V,D): 2.0 cm2AI dec slope: 615.4 cm/sec2 123.9 cm/sec2 AI P1/2t: 898.4 msec LV V1 max PG: PA V2 max: TR max lyly: 4.1 mmHg 90.3 cm/sec 371.9 cm/sec LV V1 max: PA max P.3 mmHg TR max P.8 cm/sec 55.3 mmHg Left Ventricle The left ventricle is grossly normal size. There is mild concentric left ventricular hypertrophy. The left ventricular ejection fraction is normal. Doppler measurements suggest pseudonormalized left ventricular relaxation, which is associated with grade II/IV or mild to moderate diastolic dysfunction. Wall motion cannot be accurately commented on, but no definite regional wall motion abnormalities noted. Right Ventricle The right ventricle is mild to moderately dilated. The right ventricular systolic function is mildly reduced. Atria The right atrium is severely dilated. The left atrium is severely dilated. Interarterial septum not well visualized and not well dopplered. Cannot comment on ASD/PFO presence. Mitral Valve There is moderate mitral leaflet calcification. There is severe mitral annular calcification. There is mild to moderate mitral stenosis. There is a mild amount of mitral regurgitation. Aortic Valve The aortic valve is not well visualized secondary to technical limitations. There is no aortic valve stenosis. There is a mild amount of aortic regurgitation. Tricuspid Valve The tricuspid valve is not well visualized, but is grossly normal. There is no tricuspid stenosis. There is a moderate to severe amount of tricuspid regurgitation. There is servere pulmonary hypertension by echo. Right ventricular systolic pressure is estimated to be elevated at >60mmHg. Pulmonic Valve The pulmonic valve is not well visualized. Great Vessels The aortic root is not well visualized but is probably normal size. The inferior vena cava was not well visualized. Effusions There is no pericardial effusion. : ALEX BOLAND > Samson Seals
[2017-09-07] MEDS ORDERED: SPIRONOLACTONE 25 MG TABLET PO ONE (22:00)
[2017-09-07] MEDS ORDERED: NITROGLYCERIN 2.5 MG (0.1 MG/HR) PATCH.TD24 TD SCH (22:00)
[2017-09-07] MEDS ORDERED: CARVEDILOL 6.25 MG TABLET PO SCH (22:00)
[2017-09-07] MEDS: BIMATOPROST 0.01% OPH SOLN 2.5 ML/BOTTLE OU SCH (22:03)
--- NOTE | 2017-09-08 01:59 | CONSULTATION REPORT E ---
Consultation Report NAME: ALESIA GRECO : 1930 AGE: 86Y DATE: 09/07/2017 435 A TO: JD COY M.D. FROM: ALEX BOLAND M.D. Requesting Physician CHIEF COMPLAINT: Shortness of breath, swelling, gained 10 pounds, palpitations. HISTORY OF PRESENT ILLNESS: This is an 86-year-old female with a past history of moderate pulmonary hypertension, right heart failure, chronic atrial fibrillation on rate controlled therapy, anemia, on anticoagulation therapy with Coumadin, was brought to my office with the above complaints. Recent admission to this hospital includes transfusion of 2 units of blood and some IV fluids last Wednesday. On going home, patient felt edematous, increasing edema in the legs follow, increased events of palpitations, orthopnea and paroxysmal nocturnal dyspnea at night. On my examination in the office, I found A Fib with ventricular response of 105 and there was a gain of 10 pounds from the last visit which was May 2017. The patient claimed that she gained 10 pounds just in the last few days, says on her home scales. Coreg was given to her initially 10 days ago at 12.5 mg ONCE a day, and only in the last 3 days for complaints of palpitations did her son restore her Coreg dose to 12.5 mg b.i.d (But her previous dose should have been 25 mg b.i.d). The diuretic dose of torsemide was increased from 5 mg to 5 mg b.i.d. x 2 days, the Aldactone dose was increased to 50 mg but this only started the day before admission on a Wednesday. On examination in my office, it was obvious the patient had 3+ ankles, legs, thighs and sacral edema. The blood pressure was at 140/90, therefore, it was thought it would be unwise to arbitrarily increase her torsemide outpatient dose to effect greater diuresis to since this might plunge her into acute renal failure and electrolyte imbalance. Also because she was having atrial fibrillation with rapid ventricular response and complaining of palpitations, it was important to monitor her and adjust her dose of the Beta anupama plus/minus Cardizem which should have been the AV blocking medication in the last 3 months. Due to her third accidental fall in 2 months resulting in left hip fracture and a fall one week prior to admission causing severe hematoma and loss of blood in the right arm leading to anemia and hypotension at home, it was felt that to continue giving her Coumadin for stroke prevention benefit will undermine the risk of more falls and fractures; therefore Coumadin had been discontinued as of last . PAST MEDICAL HISTORY: Includes: 1. Atrial fibrillation. 2. Hypertension. 3. Mitral valve prolapse status post mitral valve repair. 4. Hypotension from diuretics. 5. 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 6. Recurrent UTI. 7. Osteoarthritis and osteoporosis. 8. Psoriasis. 9. Trigeminal neuralgia. 10. Myelodysplasia. PAST SURGICAL HISTORY: Includes: 1. Mitral valve repair in [facility] both resection and plication of the posterior mitral leaflet. 2. Spinal fusion. 3. Cataract extraction and lens implantation. 4. Hysterectomy. 5. ICD implant. 6. Right femoral neck fracture, left femoral neck fracture. SOCIAL HISTORY: Patient used to smoke but has quit smoking for more than 30 years. She does not drink. No use of illicit drugs. Caffeine is only 2 cups a day. ALLERGIES: 1. PENICILLIN. 2. VANCOMYCIN. 3. AMLODIPINE. 4. LISINOPRIL. 5. METOPROLOL TARTRATE. 6. RAMIPRIL. 7. SIMVASTATIN. 8. LASIX. 9. COMPAZINE. MEDICATION HISTORY: 1. Dulcolax 1 tablet 3 times a day. 2. Lyrica 150 mg 2-3 times a day. 3. Nitrostat 0.4 mg sublingual p.r.n. 4. Ativan 0.5 mg at bedtime. 5. Eye drops. 6. MiraLax 7. Cough syrup. 8. Coreg 25 mg b.i.d. as of May. 9. Lexapro 10 mg daily. 10. Zyrtec. 11. Albuterol inhaler. 12. Vitamin B12 tablet. 13. Torsemide 5 mg b.i.d. for the last 3 days. 14. Lipitor 20 mg daily. 15. Tylenol p.r.n. for postural arthritic pains. 16. Aldactone 25 mg daily 3 times a week. 17. Magnesium 500 mg daily. 18. Tramadol p.r.n. REVIEW OF SYSTEMS: CONSTITUTION: Fatigue, weight gain 10 pounds, pain in the right arm, orthopnea, and PND. EYES: No visual disturbances. EAR: She has very acute hearing. CARDIOVASCULAR: Chest tightness, dyspnea on exertion, orthopnea, PND, increasing leg edema, and palpitations. RESPIRATORY: Dyspnea on exertion, minimal cough, no hemoptysis. GI: Chronic constipation, no abdominal pain, diarrhea, occasional nose bleed. No nausea or vomiting. : No dysuria or hematuria. MUSCULOSKELETAL: Muscle arthritic pains and recent right arm pain and ecchymosis and hematoma. SKIN: She has psoriasis. NEUROLOGICAL: Her gait is abnormal but she is very alert and has good memory. No speech deficit, dizziness or confusion. Instability causes frequent falls. PSYCHIATRIC: No anxiety, depression. ENDOCRINE: No heat intolerance, no polyuria, polydipsia. HEMATOLOGICAL: Patient has easy bruising and indeed has a hematoma on the right arm. PHYSICAL EXAMINATION: VITAL SIGNS: Finds her blood pressure to be 144/89 with a heart rate of 114 in my office and the ER. After admission, the blood pressure gradually settled down to 99/54 and heart rate was 76. Patient weighs 143 pounds. BMI is 23.08. She is 5 feet 6 inches. GENERAL APPEARANCE: Elderly female in mild distress with shortness of breath. Not in severe distress. HEENT: Normocephalic skull. Pupils equal and reactive to light and accommodation. No jaundice. No sclera. NECK: Examination of the neck showed no carotid bruit. There was JV distension. No thyromegaly or lymphadenopathy. RESPIRATORY: No breathing difficulty, reduced air entry in both bases of the lungs with mild basilar crust bilaterally. CARDIOVASCULAR: Examination showed elevated GVT. No carotid bruits, no vertebral bruit. PMI not palpable. No parasternal heave. The ventricular rate was 105 per minute. S4, S1 variable. S2 normal. No S3. No mid systolic click. A loud III/ systolic ejection murmur was heard in the aortic area. Peripheral pulses palpable. This is obscured by her moderate edematous dorsum of her feet. ABDOMEN: Mildly distended but no hepatosplenomegaly. EXTREMITIES: Shows severe pitting edema in lower extremities, left greater than right or away from ankles, legs, thighs, knees and sacrum. In addition, the right arm and forearm are swollen with a moderate size hematoma. Peripheral pulses show mild venous stasis pigmentation as well as skin shows psoriatic rash. NEUROLOGIC: Examination shows intact memory and there is no neurologic deficit. LABORATORY: Results from the lab show hemoglobin 10.7, white cell [id number]; platelets 92,000. The BUN was 14, creatinine was 0.65, sodium 136, potassium 3.5. The NT-pro-BNP was 5200. The total bilirubin was 1.4. The troponin I was 0.018. The chest x-ray showed cardiomegaly with no failure, only chronic lung changes, no mention of pleural effusion. ASSESSMENT: 1. Congestive heart failure exacerbation. This is likely secondary to the recent blood transfusion and IV fluid infusion with atrial fibrillation with rapid ventricular response due to insufficient Beta anupama administered at home leading to tachycardia-mediated cardiomyopathy. Echocardiogram will be done to assess left ventricular ejection fraction to confirm the right heart failure and to assess the severity of her MR. Her initial troponin I already ruled out interval myocardial necrosis. Serial SMA-7, EGFR will be done to track her kidney function and electrolyte balance during IV diuretic administration. 2. Chronic atrial fibrillation. Patient was having rapid ventricular response at home, Beta anupama needs to be optimized. In consultation with the architectural examiner Dr. Rowland, the risks of frequent falls and more fractures, hematomas and blood loss far outweighs the beneficial effect of stroke prevention even though her [id number] score is high at 5/9. 3. Anemia. This is due to recent blood loss on top of chronic myelodysplasia. 4. Hypokalemia. This is due to recent step up in the torsemide diuresis at home by patient's son in response to increased lower extremity edema without K suppl and withhold of the Aldactone until one day before admission. I have discussed this patient with Dr. Rowland the architectural examiner, and Dr. Almeida, her primary care doctor, the ER physician, in regards to her care the first night in the hospital and subsequently I talked to the hospitalist, Dr. Alex Boland, regarding initial treatment of pt in the hospital. TIME SPENT: One and a half hours. DICTATING PHYSICIAN: JD COY M.D. [id number] PHY#: [id number] ID: [id number] JOB#: [id number] ACCT: [id number] cc:JD COY M.D. > [facility]
[2017-09-08 07:18] LABS: HEMATOCRIT 29.5 % (36.0-47.0); HEMOGLOBIN 9.9 g/dL (12.0-15.5); MEAN CORPUSCULAR HEMOGLOBIN 31.7 pg (27.0-33.4); MEAN CORPUSCULAR HGB CONC 33.6 g/dL (32.0-36.0); MEAN CORPUSCULAR VOLUME 95 fl (80-97); RED BLOOD COUNT 3.12 10^6/uL (3.72-5.28); RED CELL DISTRIBUTION WIDTH 20.3 % (11.5-14.0); WHITE BLOOD COUNT 4.1 10^3/uL (4.0-10.5)
[2017-09-08 07:40] LABS: ANION GAP 7 (5-19); BLOOD UREA NITROGEN 12 mg/dL (7-20); CALCIUM 9.5 mg/dL (8.4-10.2); CARBON DIOXIDE 30 mmol/L (22-30); CHLORIDE 101 mmol/L (98-107); GLUCOSE 88 mg/dL (75-110); POTASSIUM 3.8 mmol/L (3.6-5.0); SODIUM 137.6 mmol/L (137-145)
[2017-09-08] MEDS: ESCITALOPRAM OXALATE 10 MG TABLET PO SCH (08:11)
[2017-09-08 08:12] LABS: PLATELET COUNT 84 10^3/uL (150-450)
[2017-09-08] MEDS ORDERED: CARVEDILOL 6.25 MG TABLET PO SCH (08:38)
--- NOTE | 2017-09-08 08:44 | PDOC PROGRESS REPORT ---
Subjective Progress Note for:: 09/08/17 Subjective:: The patient states to feel slightly better. She is still having some exertional dyspnea. She states that she is having some epigastric discomfort. She is complaining of some bloating. She has not moved her bowels yet. She denies any palpitations Reason For Visit: HEART FAILURE EXACERBATION, AFIB, VOLUME OVERLOAD, Physical Exam Vital Signs: Temp Pulse Resp BP Pulse Ox 99.2 F 86 18 127/69 H 93 09/08/17 04:16 09/08/17 07:00 09/08/17 04:16 09/08/17 04:16 09/08/17 04:16 Intake & Output 09/07/17 09/08/17 09/09/17 06:59 06:59 06:59 Intake Total 121 658 Output Total 2 Balance 119 658 Weight 63.8 kg 63.8 kg General appearance: PRESENT: mild distress Neck exam: ABSENT: carotid bruit, JVD Respiratory exam: PRESENT: crackles Cardiovascular exam: PRESENT: irregular rhythm, +S1, +S2 Pulses: PRESENT: +1 pedal pulses bilateral GI/Abdominal exam: PRESENT: normal bowel sounds, soft Extremities exam: PRESENT: tenderness Musculoskeletal exam: PRESENT: ambulatory Neurological exam: PRESENT: alert, awake Results Laboratory Results: 09/08/17 06:43 09/08/17 06:43 09/07/17 09/07/17 09/08/17 08:49 08:49 06:43 WBC 4.7 4.1 RBC 3.00 L 3.12 L Hgb 9.6 L 9.9 L Hct 28.6 L 29.5 L MCV 95 95 MCH 31.8 31.7 MCHC 33.5 33.6 RDW 20.7 H 20.3 H Plt Count 86 L 84 L Seg Neutrophils % 57.4 Lymphocytes % 25.4 Monocytes % 13.2 H Eosinophils % 3.6 Basophils % 0.4 Absolute Neutrophils 2.7 Absolute Lymphocytes 1.2 Absolute Monocytes 0.6 Absolute Eosinophils 0.2 Absolute Basophils 0.0 Sodium 138.7 Potassium 3.7 Chloride 103 Carbon Dioxide 29 Anion Gap 7 BUN 11 Creatinine 0.55 Est GFR ( Amer) > 60 Est GFR (Non-Af Amer) > 60 Glucose 84 Calcium 9.2 09/08/17 06:43 WBC RBC Hgb Hct MCV MCH MCHC RDW Plt Count Seg Neutrophils % Lymphocytes % Monocytes % Eosinophils % Basophils % Absolute Neutrophils Absolute Lymphocytes Absolute Monocytes Absolute Eosinophils Absolute Basophils Sodium 137.6 Potassium 3.8 Chloride 101 Carbon Dioxide 30 Anion Gap 7 BUN 12 Creatinine 0.63 Est GFR ( Amer) > 60 Est GFR (Non-Af Amer) > 60 Glucose 88 Calcium 9.5 09/07/17 09/07/17 09/07/17 01:59 01:59 08:49 Creatine Kinase 76 63 CK-MB (CK-2) 0.75 Troponin I 0.018 09/07/17 09/07/17 09/07/17 08:49 14:13 14:13 Creatine Kinase 71 CK-MB (CK-2) 0.65 0.84 Troponin I 0.014 0.015 Impressions: Chest X-Ray 09/06/17 19:12 IMPRESSION: Cardiomegaly with no liza CHF. Chronic lung changes. Assessment & Plan - Diagnosis (1) Coronary artery disease Qualifiers: Coronary Disease-Associated Artery/Lesion type: [place] artery Associated angina: with stable angina Is this a current diagnosis for this admission?: Yes Plan: We will continue current medications (2) Peripheral arterial disease Is this a current diagnosis for this admission?: Yes (3) Peripheral vascular disease Is this a current diagnosis for this admission?: Yes Plan: Compression stockings and leg elevation (4) Recurrent falls Is this a current diagnosis for this admission?: Yes Plan: Status post hip fracture with surgical repair. Discussed with hematology oncology and cardiology and will stop the anticoagulation because of the high risk of falls and bleed (5) Anemia Qualifiers: Anemia type: iron deficiency Iron deficiency anemia type: unspecified iron deficiency Qualified Code(s): D50.9 - Iron deficiency anemia, unspecified Is this a current diagnosis for this admission?: Yes (6) Chronic atrial fibrillation Is this a current diagnosis for this admission?: Yes Plan: We will increase the dose of Coreg. (7) Congestive heart failure Qualifiers: Heart failure type: unspecified Heart failure chronicity: acute on chronic Qualified Code(s): I50.9 - Heart failure, unspecified Is this a current diagnosis for this admission?: Yes Plan: We will switch from IV to p.o. Lasix and obtain a strict CAITLYN's (8) Myelodysplasia (myelodysplastic syndrome) Is this a current diagnosis for this admission?: Yes Plan: Most probably the cause of anemia patient is status post transfusion
[2017-09-08] MEDS ORDERED: FUROSEMIDE INJ/PF 20 MG/2 ML SDV IV SCH (10:00)
[2017-09-08] MEDS ORDERED: FUROSEMIDE 40 MG TABLET PO SCH (10:00)
[2017-09-08] MEDS: SPIRONOLACTONE 25 MG TABLET PO SCH (10:35)
[2017-09-08] MEDS: CARVEDILOL 12.5 MG TABLET PO SCH ×2 (10:36→22:04)
[2017-09-08] MEDS: DOCUSATE SODIUM 100 MG CAPSULE PO SCH ×3 (10:36→18:26)
[2017-09-08] MEDS: POTASSIUM CHLORIDE 10 MEQ TABLET.SA PO SCH ×2 (10:37→22:04)
[2017-09-08] MEDS: ONDANSETRON HCL 8 MG TABLET PO PRN ×2 (10:38→18:27)
[2017-09-08 15:04] LABS: APPEARANCE,URINE CLEAR; BILIRUBIN,URINE NEGATIVE (NEGATIVE); COLOR,URINE YELLOW; GLUCOSE, URINE NEGATIVE (NEGATIVE); KETONES,URINE NEGATIVE (NEGATIVE); LEUKOCYTE ESTERASE,URINE NEGATIVE (NEGATIVE); NITRITE,URINE NEGATIVE (NEGATIVE); PROTEIN,URINE NEGATIVE (NEGATIVE); URINE SPECIFIC GRAVITY 1.009
[2017-09-08] MEDS: ACETAMINOPHEN 325 MG TABLET PO PRN (16:03)
[2017-09-08] MEDS: FUROSEMIDE 40 MG TABLET PO SCH (18:26)
--- NOTE | 2017-09-08 21:23 | XCELERA REPORT ---
[address] [address] Transthoracic Echocardiogram Report Name: ALESIA GRECO Age: 86 yrs Gender: Female : 1930 Patient Status: Inpatient Patient Location: [address] [place] [address] Study Date: 09/07/2017 10:08 AM Height: 66 in Weight: 141 lb BSA: 1.7 m2 Reason For Study: VOLUME OVERLOAD Ordering Physician: ALEX BOLAND Performed By: MF Interpretation Summary Technically poor study, no biplane LVEF due to poor apical view endocardial definition. Calcified aortic root with no dilatation. Mild AV sclerosis, no stenosis, but mild AR with PHT 895 ms and LVdilatation, LVESD 47 mm. Mitral annuloplasty and s/p MV valvuloplasty for MVP, keaflets are restricted and thickened, with mild MS 2.56cm2. and mild MR asnd severe LA enlargement, MARISOL 90cc/m2. Generalised hypokinesis with low normal LVEF 50-55% and LVDD+. No LVH (IVS/PW= / ) No biplane LVEF possible. RA is enlarged with mod TR and mod/severe pulm hypertension RVSP 56+8 = 64 mm Hg, normal RV but RVSD with impaired TAPSE. IVC normal calibre. MMode/2D Measurements & Calculations RVDd: 3.4 cm LVIDd: 5.7 cmFS: 25.6 % Ao root diam: 3.0 cm IVSd: 1.0 cm LVIDs: 4.2 cmEDV(Teich): 158.5 ml LVPWd: 1.0 cmESV(Teich): 79.6 ml Ao root area: 7.1 cm2 EF(Teich): 49.7 % LA dimension: 5.6 cm LVOT diam: 2.0 cm LVOT area: 3.2 cm2 Doppler Measurements & Calculations MV E max lyly: MV P1/2t max lyly: Ao V2 max: AI max lyly: 182.0 cm/sec 182.0 cm/sec 160.2 cm/sec 380.1 cm/sec MV P1/2t: 86.6 msec Ao max PG: AI max PG: MVA(P1/2t): 2.5 cm2 10.3 mmHg 57.8 mmHg MV dec slope: SANDEEP(V,D): 2.0 cm2AI dec slope: 615.4 cm/sec2 123.9 cm/sec2 AI P1/2t: 898.4 msec LV V1 max PG: PA V2 max: TR max lyly: 4.1 mmHg 90.3 cm/sec 371.9 cm/sec LV V1 max: PA max P.3 mmHg TR max P.8 cm/sec 55.3 mmHg Left Ventricle The left ventricle is moderately dilated. There is normal left ventricular wall thickness. LV EF is 55%. The E/E' ratio between the mitral E wave and the mitral annulus E' wave is 28. Septal motion is consistent with conduction abnormality. There are regional wall motion abnormalities as specified. Not all wall segments were well visualized. There is no thrombus. Right Ventricle The right ventricle is normal size. There is a pacemaker lead in the right ventricle. The right ventricular systolic function is mildly reduced. Atria The right atrium is dilated. The left atrium is severely dilated. MARISOL 90cc/m2 severe enlargement. There is no Doppler evidence for an interatrial shunt. Mitral Valve There is no evidence of mitral valve prolapse. Doming of the mitral leaflets is noted. There is mild mitral stenosis. There is a mild amount of mitral regurgitation. An annuloplasty ring is noted in the mitral position. The mitral valve has been surgically repaired and an annuloplasty ring sewn in place. The repaired mitral valve appears to function normally. There is mild perivalvular regurgitation around the mitral prosthesis. Aortic Valve The aortic valve is sclerotic and shows some degree of functional abnormality. There is no aortic valvular vegetation. There is no aortic valve stenosis. There is a mild amount of aortic regurgitation. PHT 895ms. Tricuspid Valve Tricuspid leaflets are thickened. There is no tricuspid valve prolapse. There is no tricuspid stenosis. There is a moderate amount of tricuspid regurgitation. Best estimated right ventricular systolic pressure is elevated at >60mmHg. Pulmonic Valve The pulmonic valve is not well visualized. There is no pulmonic valvular regurgitation. Great Vessels The aortic root is normal size. There is aortic root sclerosis/calcification. Effusions There is no pericardial effusion. I WMSI = 1.44 % Normal = 56 Segments Size X - Cannot 2 - 4 - 1-2 small Interpret 1 - Normal Hypokinetic 3 - AkineticDyskinetic 3-5 moderate 5 - 6-14 large Aneurysmal 15-16 diffuse : ALEX BOLAND > Shawn Diaz
--- NOTE | 2017-09-08 21:24 | PROGRESS NOTE E ---
Progress Note NAME: ALESIA GRECO : 1930 AGE: 86Y DATE: 09/08/2017 ROOM: 435 SUBJECTIVE: The patient is doing better. Initially last night because of persistent hypotension the Coreg dose was reduced from 12.5 mg b.i.d. to 6.25 mg b.i.d. so that diuretic doses could work better with a higher blood pressure. Overnight the patient had some diuresis, which was not accurately charted (voids ), but her blood pressure improved to the 110s overnight and was stable such that in the morning we were able to increase her Coreg back to 12.5 mg b.i.d. While on Coreg 12.5 5 mg b.i.d. so far today the patient has been able to maintain a blood pressure between 126/63 to 118/64. The intravenous Lasix was converted to 40 mg Lasix p.o. b.i.d. 8 hours apart, 2 doses a day this am, and so far it appears to work with her higher systolic blood pressure and in the past 12-18 hours it appears that she has an excess of 1200 mL of urine loosely charted. Tonight the patient appears to be fairly drowsy, perhaps because of medicine given for her epigastric nausea and discomfort after food, there was some bloating. Overnight she also had epistaxis and eventually the Lovenox was discontinued. With respect to the atrial fibrillation her ventricular response was staying in the 84-86 range and only 1 time went up to 100 in the middle of last night. OBJECTIVE: VITAL SIGNS: Her blood pressure this morning was 126/63, heart rate 84, throughout the day it stayed around 116/54, this was even after a p.o. Lasix of 40 mg given at 6:30 p.m. With the Coreg 12.5 mg heart rate stayed around 86. GENERAL APPEARANCE: The patient did not appear to be in distress. She was sleepy but able to hold a conversation and understood everything that I told her. NECK: The JVP was still distended. CHEST: Examination showed that she still has mild bilateral crepitations. CARDIOVASCULAR: Showed atrial fibrillation with controlled ventricular response. S1 was variable, S2 was normal. A grade II/ systolic ejection murmur was heard in the mitral area, no S3 heard. ABDOMEN: Soft, liver did not appear to be enlarged. Bowel sounds are normal. EXTREMITIES: Showed much less ankle, leg, and thigh edema. The sacral edema has totally disappeared. Mild pitting edema surrounding the hip areas. NEUROLOGIC: The patient was alert and awake. LABORATORY DATA: Showed a hemoglobin 9.9, white cell count was 4.1, platelets were 84,000. The Lovenox has been discontinued. The RFT = Bun 12, creatinine 0.63, EGFR is greater than 60. Sodium 137.6, potassium was 3.8. ASSESSMENT AND PLAN: 1. CONGESTIVE HEART FAILURE. This patient has mostly right heart failure. Her echo showed that her right ventricular systolic pressure was in the 60s and there was right atrial enlargement and right ventricular systolic dysfunction. Left ventricular ejection fraction is in the low normals, LVEF was estimated to be 50%, no biplane analysis could be made due to poor images in apical views. She has been successfully diuresed with intravenous Lasix and her fluid retention seems to have resolved about 80% as evidenced by much improved peripheral edema and the disappearance of sacral edema. The plan is, therefore, for patient to be sent home if she continues to remain stable overnight on the following medications; Coreg 12.5 mg p.o. b.i.d., eventually it will be taken up to 25 mg b.i.d. if her blood pressure continues to remain stable or improve higher at home. Her diuretic ought to be changed back to torsemide 10 mg p.o. daily initially with Aldactone 25 mg p.o. daily and magnesium 2 tablets of 250 mg daily. Due to her precarious blood pressures soon after admission and only initial stabilization of her blood pressure ADA inhibitors and ARBs will not be used at this time pending further stabilization of her blood pressure at home as her congestive heart failure further stabilizes. Consideration could be made depending on the blood pressure at that level to start her on Entresto (but her BP appears to be >50) The patient is to be seen in a week's time with repeat SMA-7, EGFR, serum magnesium level, and NT-proBNP. Her family has been instructed to do daily a.m. weights on her and if she should gain 3 pounds in 2 days or 5 pounds in a week they should call the office for further instructions instead of attempting to adjust her diuretic based on family guesstimations. I have discussed this in great detail with the son arnel. 2. ATRIAL FIBRILLATION. The patient's ventricular response is much better controlled now that she is on 12.5 mg Coreg twice a day. The patient no longer has any complaints of palpitations, which usually suggests that she is detecting heart rates in excess of 100 beats per minute based on my outpatient observations with her. Once again I cautioned the family that we have made the decision to not give her Coumadin for stroke prevention because of too many documented falls and hip fractures and hematoma formation. The patient and family now understands that there is a risk of stroke without oral anticoagulant with atrial fibrillation patients such as their mother and they should be prepared to accept the risk. 3. HYPOTENSION. Is resolved. 4. ANEMIA. Hemoglobin is 9.9, she will be followed up by Dr. Rowland for IV iron infusion once she is stabilized outpatient. 5. HYPERTENSION. So far this has not been a problem, except on admission. She will be started Entresto eventually once we are certain that her blood pressure is not too labile and will tolerate RAAS agents (ACEI, ARB, and ARNI drugs). 6. Epistaxis - related to use of Lovenox, will try to avoid since she is also thrombo- cytopenic, this being her third time reacting to Lovenoxper her son. 7. Epigastric distress = defer to Dr Sykes. TIME SPENT: One hour 15 minutes. DICTATING PHYSICIAN: JD COY M.D. [id number] MARCELLEY#: [id number] ID: [id number] JOB#: [id number] ACCT: [id number] cc: > GENOV[facility]A
[2017-09-08] MEDS: BIMATOPROST 0.01% OPH SOLN 2.5 ML/BOTTLE OU SCH (22:03)
[2017-09-08] MEDS: ATORVASTATIN CALCIUM 20 MG TABLET PO SCH (22:04)
[2017-09-08] MEDS: LORAZEPAM 0.5 MG TABLET PO SCH (22:04)
[2017-09-09 06:16] LABS: ABSOLUTE EOSINOPHILS # (AUTO) 0.2 10^3/uL (0.0-0.6); ABSOLUTE LYMPHOCYTES (AUTO) 1.2 10^3/uL (0.5-4.7); ABSOLUTE MONOCYTES (AUTO) 0.5 10^3/uL (0.1-1.4); ABSOLUTE NEUT (AUTO) 2.2 10^3/uL (1.7-8.2); BASOPHILS % (AUTO) 0.9 % (0-2); EOSINOPHILS % (AUTO) 3.8 % (0-6); HEMATOCRIT 29.3 % (36.0-47.0); HEMOGLOBIN 9.9 g/dL (12.0-15.5); LYMPHOCYTES % (AUTO) 28.9 % (13-45); MEAN CORPUSCULAR HEMOGLOBIN 32.1 pg (27.0-33.4); MEAN CORPUSCULAR HGB CONC 33.6 g/dL (32.0-36.0); MEAN CORPUSCULAR VOLUME 95 fl (80-97); MONOCYTES % (AUTO) 13.1 % (3-13); RED BLOOD COUNT 3.07 10^6/uL (3.72-5.28); RED CELL DISTRIBUTION WIDTH 20.2 % (11.5-14.0); SEGMENTED NEUTROPHILS % (AUTO) 53.3 % (42-78); TOTAL CELLS COUNTED % (AUTO) 100 %
[2017-09-09 06:25] LABS: ANION GAP 9 (5-19); BLOOD UREA NITROGEN 13 mg/dL (7-20); CALCIUM 9.6 mg/dL (8.4-10.2); CARBON DIOXIDE 30 mmol/L (22-30); CHLORIDE 96 mmol/L (98-107); GLUCOSE 96 mg/dL (75-110); PLATELET COUNT 83 10^3/uL (150-450); POTASSIUM 4.4 mmol/L (3.6-5.0); SODIUM 135.2 mmol/L (137-145)
[2017-09-09] MEDS: ESCITALOPRAM OXALATE 10 MG TABLET PO SCH (08:27)
[2017-09-09] MEDS: ACETAMINOPHEN 325 MG TABLET PO PRN (08:35)
--- NOTE | 2017-09-09 08:46 | PDOC DISCHARGE SUMMARY ---
General - Admit/Disc Date/PCP Admission Date/Primary Care Provider: 09/06/17 22:04 HANSEL REID, Discharge Date: 09/09/17 - Discharge Diagnosis (1) Coronary artery disease Is this a current diagnosis for this admission?: Yes Summary: Continue current medications (2) Peripheral arterial disease Is this a current diagnosis for this admission?: Yes Summary: Continue current treatment (3) Peripheral vascular disease Is this a current diagnosis for this admission?: Yes Summary: Continue wearing elastic stockings (4) Recurrent falls Is this a current diagnosis for this admission?: Yes (5) Anemia Is this a current diagnosis for this admission?: Yes Summary: Follow-up with hematology for myelodysplasia (6) Chronic atrial fibrillation Is this a current diagnosis for this admission?: Yes Summary: Continue Coreg at 12.5 twice a day (7) Congestive heart failure Is this a current diagnosis for this admission?: Yes Summary: We will switch from p.o. Lasix to torsemide and continue Aldactone (8) Myelodysplasia (myelodysplastic syndrome) Is this a current diagnosis for this admission?: Yes Summary: Recheck H&H - Additional Information Resuscitation Status: Full Code Discharge Diet: Cardiac Discharge Activity: Activity As Tolerated, Balance Activity w/Rest, Weigh Daily Home Medications: Atorvastatin Calcium [Lipitor 20 mg Tablet] 20 mg PO QHS 09/07/17 Carvedilol [Coreg 12.5 mg Tablet] 12.5 mg PO Q12 09/07/17 Cyanocobalamin (Vitamin B-12) [Vitamin B-12 1000 mcg Tablet] 1,000 mcg PO DAILY 09/07/17 Docusate Sodium [Colace 100 mg Capsule] 300 mg PO DAILY 09/07/17 Escitalopram Oxalate [Lexapro 10 mg Tablet] 10 mg PO DAILY 09/07/17 Lorazepam [Ativan 0.5 mg Tablet] 0.5 mg PO QHS 09/07/17 Pregabalin [Lyrica] 150 mg PO Q12 09/07/17 Spironolactone [Aldactone 25 mg Tablet] 25 mg PO DAILY 09/07/17 Vit D3/Folic Acid/B2/B6/B12 [Folgard Tablet] 1 cap PO DAILY 09/07/17 Torsemide [Demadex 10 mg Tablet] 10 mg PO DAILY #0 09/09/17 History of Present Illness History of Present Illness: ALESIA GRECO is a 86 year old female Hospital Course Hospital Course: The patient did well after the hospitalization. She had significant amount of diureses. Her kidney function has remained stable. Her BMP has decreased down to 3000. Her heart rate was relatively well controlled. She was able to ambulate with minimal assistance Physical Exam Vital Signs: Temp Pulse Resp BP Pulse Ox 98.0 F 91 17 125/63 94 09/09/17 08:18 09/09/17 08:18 09/09/17 08:18 09/09/17 08:18 09/09/17 08:18 Intake & Output 09/08/17 09/09/17 09/10/17 06:59 06:59 06:59 Intake Total 658 815 Output Total 3600 Balance 658 -2785 Weight 63.8 kg 64.5 kg General appearance: PRESENT: no acute distress Head exam: PRESENT: atraumatic Eye exam: PRESENT: conjunctiva pink Neck exam: ABSENT: carotid bruit, JVD Respiratory exam: PRESENT: crackles Cardiovascular exam: PRESENT: irregular rhythm, +S1, +S2 GI/Abdominal exam: PRESENT: normal bowel sounds, soft Musculoskeletal exam: PRESENT: ambulatory Results Laboratory Results: 09/09/17 05:36 09/09/17 05:36 09/08/17 09/09/17 09/09/17 13:50 05:36 05:36 WBC 4.0 RBC 3.07 L Hgb 9.9 L Hct 29.3 L MCV 95 MCH 32.1 MCHC 33.6 RDW 20.2 H Plt Count 83 L Seg Neutrophils % 53.3 Lymphocytes % 28.9 Monocytes % 13.1 H Eosinophils % 3.8 Basophils % 0.9 Absolute Neutrophils 2.2 Absolute Lymphocytes 1.2 Absolute Monocytes 0.5 Absolute Eosinophils 0.2 Absolute Basophils 0.0 Sodium 135.2 L Potassium 4.4 Chloride 96 L Carbon Dioxide 30 Anion Gap 9 BUN 13 Creatinine 0.60 Est GFR ( Amer) > 60 Est GFR (Non-Af Amer) > 60 Glucose 96 Calcium 9.6 Magnesium 1.6 Urine Color YELLOW Urine Appearance CLEAR Urine pH 7.0 Ur Specific [place] 1.009 Urine Protein NEGATIVE Urine Glucose (UA) NEGATIVE Urine Ketones NEGATIVE Urine Blood SMALL H Urine Nitrite NEGATIVE Ur Leukocyte Esterase NEGATIVE Urine WBC (Auto) 1 Urine RBC (Auto) 1 09/07/17 09/07/17 09/07/17 01:59 01:59 08:49 Creatine Kinase 76 63 CK-MB (CK-2) 0.75 Troponin I 0.018 NT-Pro-B Natriuret Pep 09/07/17 09/07/17 09/07/17 08:49 14:13 14:13 Creatine Kinase 71 CK-MB (CK-2) 0.65 0.84 Troponin I 0.014 0.015 NT-Pro-B Natriuret Pep 09/09/17 05:36 Creatine Kinase CK-MB (CK-2) Troponin I NT-Pro-B Natriuret Pep 3020 H Impressions: Chest X-Ray 09/06/17 19:12 IMPRESSION: Cardiomegaly with no liza CHF. Chronic lung changes. Qualifiers - * PATEINT BEING DISCHARGED WITH ANY OF THE FOLLOWING DIAGNOSIS?: Heart Failure HF Pt being discharged on ACEI for LVEF less than 40%?: No Reason(s) for not prescribing ACEI:: Tx not tolerated HF Pt being discharged on ARBS for LVEF less than 40%?: No Reason(s) for not prescribing ARBS:: Tx not tolerated HF Pt with Afib discharged with Warfarin?: No Reason(s) for not prescribing Warfarin:: Medical Contraindication HF Pt discharged on evidence-based Beta Martell:: Yes
[2017-09-09 08:53] VITALS: BP 121/67
[2017-09-09] MEDS: ONDANSETRON HCL 8 MG TABLET PO PRN (09:57)
[2017-09-09] MEDS ORDERED: B6 PO SCH (10:00)
[2017-09-09] MEDS ORDERED: CYANOCOBALAMIN (VITAMIN B-12) 1,000 MCG TABLET PO SCH (10:00)
[2017-09-09] MEDS ORDERED: SPIRONOLACTONE 25 MG TABLET PO SCH (10:00)
[2017-09-09] MEDS ORDERED: B12 PO SCH (10:00)
[2017-09-09] MEDS ORDERED: DOCUSATE SODIUM 100 MG CAPSULE PO SCH (10:00)
[2017-09-09] MEDS ORDERED: B2 PO SCH (10:00)
[2017-09-09] MEDS ORDERED: ESCITALOPRAM OXALATE 10 MG TABLET PO SCH (10:00)
[2017-09-09] MEDS ORDERED: CYANOCOBALAMIN/FA/PYRIDOXINE TABLET PO SCH (10:00)
[2017-09-09] MEDS ORDERED: CARVEDILOL 12.5 MG TABLET PO SCH (10:00)
[2017-09-09] MEDS ORDERED: PREGABALIN 75 MG CAPSULE PO SCH (10:00)
[2017-09-09] MEDS ORDERED: (PENDING PHARMACY ID) (Torsemide [Demadex 10 Mg Tablet] 10 MG) PO SCH (10:00)
[2017-09-09] MEDS ORDERED: TORSEMIDE 20 MG TABLET PO SCH (10:00)
[2017-09-09] MEDS ORDERED: VIT D3 PO SCH (10:00)
[2017-09-09] MEDS ORDERED: FOLIC ACID PO SCH (10:00)
[2017-09-09] MEDS: CARVEDILOL 12.5 MG TABLET PO SCH (10:32)
[2017-09-09] MEDS: POTASSIUM CHLORIDE 10 MEQ TABLET.SA PO SCH (10:33)
[2017-09-09] MEDS: SPIRONOLACTONE 25 MG TABLET PO SCH (10:33)
[2017-09-09] MEDS: DOCUSATE SODIUM 100 MG CAPSULE PO SCH (10:34)
[2017-09-09] MEDS: FUROSEMIDE 40 MG TABLET PO SCH (10:34)
[2017-09-09] MEDS ORDERED: ATORVASTATIN CALCIUM 20 MG TABLET PO SCH (22:00)
[2017-09-09] MEDS ORDERED: LORAZEPAM 0.5 MG TABLET PO SCH (22:00)
== END 2017-09-09 10:48 | disposition home or self-care (01) | DRG 292 ==
LOC: ER 18:57 → EH 22:04 → 4S 23:31
PROVIDERS: ADMIT Internal Medicine; ATTEND Internal Medicine
DX: I11.0 Hypertensive heart disease with heart failure (principal); D68.32 Hemorrhagic disorder due to extrinsic circulating anticoagulants; I50.9 Heart failure, unspecified; I48.2 Chronic atrial fibrillation; I25.118 Atherosclerotic heart disease of native coronary artery with other forms of angina pectoris; D46.9 Myelodysplastic syndrome, unspecified; E78.00 Pure hypercholesterolemia, unspecified; I95.9 Hypotension, unspecified; I73.9 Peripheral vascular disease, unspecified; E87.6 Hypokalemia; R04.0 Epistaxis; E87.71 Transfusion associated circulatory overload; K59.00 Constipation, unspecified; Z79.01 Long term (current) use of anticoagulants; Z95.2 Presence of prosthetic heart valve; Z95.0 Presence of cardiac pacemaker
CPT/HCPCS: 36415; 71045; 80048; 80053; 81001; 82550; 82553; 83735; 83880; 84443; 84484; 85025; 85027; 85610; 85730; 93005; 93010; 93306; 99285; G8978-GP; G8979-GP; J1644; J1650; J1940; J3490; S0119

== ENCOUNTER → 2017-10-23 | Outpatient (CLI) | payer MEDICARE, BC ==
--- NOTE | 2017-10-23 11:26 | RADIOLOGY REPORT (SQ) ---
EXAM DESCRIPTION: CT HEAD WITHOUT COMPLETED DATE/TIME: 10/23/2017 11:12 am REASON FOR STUDY: INJURY OF LEFT TRIGEMINAL NERVE S04.32XS INJURY OF TRIGEMINAL NERVE, LEFT SIDE, S EQUELA COMPARISON: 06/27/2017 TECHNIQUE: Axial images acquired through the brain without intravenous contrast. Images reviewed wi th bone, brain and subdural windows. Images stored on PACS. All CT scanners at this facility use dose modulation, iterative reconstruction, and/or weight based d osing when appropriate to reduce radiation dose to as low as reasonably achievable (ALARA). [facility]: Dose Right [facility]: CareDose [facility]: Dose Right [facility]: Teradose 4D [facility]: Smart [employer] RADIATION DOSE: CT Rad equipment meets quality standard of care and radiation dose reduction techniq ues were employed. CTDIvol: 53.2 mGy. DLP: 991 mGy-cm.mGy. LIMITATIONS: None. FINDINGS: VENTRICLES: Prominent. CEREBRUM: No masses. No hemorrhage. No midline shift. Areas of low density in the white matter mos t likely due to chronic micro-vascular ischemic change. No evidence for acute infarction. CEREBELLUM: No masses. No hemorrhage. No alteration of density. No evidence for acute infarction. EXTRAAXIAL SPACES: Age-related involutional change. No fluid collections. No masses. ORBITS AND GLOBE: No intra- or extraconal masses. Normal contour of globe without masses. CALVARIUM: No fracture. PARANASAL SINUSES: No fluid or mucosal thickening. SOFT TISSUES: No mass or hematoma. OTHER: No other significant finding. IMPRESSION: NO ACUTE INTRACRANIAL PROCESS. NO ACUTE CHANGE FROM PRIOR STUDY. EVIDENCE OF ACUTE STROKE: NO. TECHNICAL DOCUMENTATION: JOB ID: [id number] Quality ID # [id number]: Final reports with documentation of one or more dose reduction techniques (e.g., Au tomated exposure control, adjustment of the mA and/or kV according to patient size, use of iterative reconstruction technique) 2010 [employer]- All Rights Reserved Reading location - IP/workstation name: [email or web address]
== END ==
LOC: RAD 10:58
DX: S04.32 Injury of trigeminal nerve, left side (principal); X58.XXXS Exposure to other specified factors, sequela
CPT/HCPCS: 70450

== ENCOUNTER → 2017-10-26 | Outpatient (CLI) | payer MEDICARE, BC ==
[2017-10-26 11:22] LABS: ANION GAP 10 (5-19); BLOOD UREA NITROGEN 18 mg/dL (7-20); CALCIUM 9.3 mg/dL (8.4-10.2); CARBON DIOXIDE 30 mmol/L (22-30); CHLORIDE 98 mmol/L (98-107); GLUCOSE 133 mg/dL (75-110); POTASSIUM 4.7 mmol/L (3.6-5.0); SODIUM 137.9 mmol/L (137-145)
== END ==
LOC: OD 09:47
PROVIDERS: ATTEND Internal Medicine Cardiovascular Disease
DX: I50.22 Chronic systolic (congestive) heart failure (principal); R06.02 Shortness of breath; I48.2 Chronic atrial fibrillation
CPT/HCPCS: 36415; 80048; 83880

== ENCOUNTER → 2017-11-01 | Outpatient (CLI) | payer MEDICARE, BC ==
[2017-11-01 11:35] LABS: ALANINE AMINOTRANSFERASE 32 U/L (9-52); ALBUMIN 3.9 g/dL (3.5-5.0); ALKALINE PHOSPHATASE 124 U/L (38-126); ANION GAP 9 (5-19); ASPARTATE AMINO TRANSFERASE 36 U/L (14-36); BILIRUBIN,DIRECT 0.3 mg/dL (0.0-0.4); BILIRUBIN,TOTAL 0.6 mg/dL (0.2-1.3); BLOOD UREA NITROGEN 18 mg/dL (7-20); CALCIUM 9.4 mg/dL (8.4-10.2); CARBON DIOXIDE 34 mmol/L (22-30); CHLORIDE 93 mmol/L (98-107); GLUCOSE 86 mg/dL (75-110); POTASSIUM 3.9 mmol/L (3.6-5.0); SODIUM 136.3 mmol/L (137-145); TRIGLYCERIDES 49 mg/dL (<150)
[2017-11-01 11:54] LABS: DIRECT LDL 58 mg/dL (<100)
== END ==
LOC: OD 10:13
PROVIDERS: ATTEND Internal Medicine Cardiovascular Disease
DX: I50.22 Chronic systolic (congestive) heart failure (principal); I48.2 Chronic atrial fibrillation; R06.02 Shortness of breath; E78.00 Pure hypercholesterolemia, unspecified
CPT/HCPCS: 36415; 80048; 80061; 80076; 83880

== ENCOUNTER → 2017-11-05 | Outpatient (CLI) | payer MEDICARE, BC ==
[2017-11-05 11:14] LABS: ANION GAP 14 (5-19); BLOOD UREA NITROGEN 22 mg/dL (7-20); CALCIUM 9.5 mg/dL (8.4-10.2); CARBON DIOXIDE 33 mmol/L (22-30); CHLORIDE 92 mmol/L (98-107); GLUCOSE 92 mg/dL (75-110); POTASSIUM 4.7 mmol/L (3.6-5.0); SODIUM 139.2 mmol/L (137-145)
== END ==
LOC: OD 09:31
PROVIDERS: ATTEND Internal Medicine Cardiovascular Disease
DX: I50.22 Chronic systolic (congestive) heart failure (principal); R60.0 Localized edema; I48.2 Chronic atrial fibrillation
CPT/HCPCS: 36415; 80048; 83880

== ENCOUNTER → 2017-11-12 | Outpatient (CLI) | payer MEDICARE, BC ==
[2017-11-12 13:09] LABS: ANION GAP 11 (5-19); BLOOD UREA NITROGEN 16 mg/dL (7-20); CALCIUM 9.4 mg/dL (8.4-10.2); CARBON DIOXIDE 29 mmol/L (22-30); CHLORIDE 97 mmol/L (98-107); GLUCOSE 76 mg/dL (75-110); POTASSIUM 4.7 mmol/L (3.6-5.0); SODIUM 136.7 mmol/L (137-145)
== END ==
LOC: LAB 12:17
PROVIDERS: ATTEND Internal Medicine Cardiovascular Disease
DX: I50.22 Chronic systolic (congestive) heart failure (principal); R60.0 Localized edema; I10 Essential (primary) hypertension
CPT/HCPCS: 36415; 80048; 83880

== ENCOUNTER → 2017-11-19 | Outpatient (CLI) | payer MEDICARE, BC ==
[2017-11-19 11:49] LABS: ANION GAP 12 (5-19); BLOOD UREA NITROGEN 20 mg/dL (7-20); CALCIUM 9.2 mg/dL (8.4-10.2); CARBON DIOXIDE 29 mmol/L (22-30); CHLORIDE 99 mmol/L (98-107); GLUCOSE 113 mg/dL (75-110); POTASSIUM 4.1 mmol/L (3.6-5.0)
== END ==
LOC: LAB 10:57
PROVIDERS: ATTEND Internal Medicine Cardiovascular Disease
DX: I50.22 Chronic systolic (congestive) heart failure (principal); R60.0 Localized edema
CPT/HCPCS: 36415; 80048; 83880

== ENCOUNTER → 2017-11-26 | Outpatient (CLI) | payer MEDICARE, BC ==
[2017-11-26 11:33] LABS: ANION GAP 10 (5-19); BLOOD UREA NITROGEN 23 mg/dL (7-20); CALCIUM 9.6 mg/dL (8.4-10.2); CARBON DIOXIDE 29 mmol/L (22-30); CHLORIDE 100 mmol/L (98-107); GLUCOSE 89 mg/dL (75-110); POTASSIUM 4.1 mmol/L (3.6-5.0); SODIUM 139.4 mmol/L (137-145)
== END ==
LOC: LAB 10:36
PROVIDERS: ATTEND Internal Medicine Cardiovascular Disease
DX: I50.22 Chronic systolic (congestive) heart failure (principal); I10 Essential (primary) hypertension; I48.2 Chronic atrial fibrillation
CPT/HCPCS: 36415; 80048; 83880

== ENCOUNTER → 2017-11-30 | Outpatient (CLI) | payer MEDICARE, BC ==
[2017-11-30 11:21] LABS: ANION GAP 10 (5-19); BLOOD UREA NITROGEN 16 mg/dL (7-20); CALCIUM 9.3 mg/dL (8.4-10.2); CARBON DIOXIDE 31 mmol/L (22-30); CHLORIDE 100 mmol/L (98-107); GLUCOSE 148 mg/dL (75-110); POTASSIUM 4.1 mmol/L (3.6-5.0); SODIUM 140.9 mmol/L (137-145)
== END ==
LOC: LAB 10:32
PROVIDERS: ATTEND Internal Medicine Cardiovascular Disease
DX: I50.22 Chronic systolic (congestive) heart failure (principal); R60.0 Localized edema
CPT/HCPCS: 36415; 80048; 83880

== ENCOUNTER → 2017-12-14 | Outpatient (CLI) | payer MEDICARE, BC ==
[2017-12-14 10:28] LABS: ANION GAP 11 (5-19); BLOOD UREA NITROGEN 23 mg/dL (7-20); CALCIUM 9.1 mg/dL (8.4-10.2); CARBON DIOXIDE 29 mmol/L (22-30); CHLORIDE 98 mmol/L (98-107); GLUCOSE 108 mg/dL (75-110); SODIUM 138.3 mmol/L (137-145)
== END ==
LOC: LAB 09:44
PROVIDERS: ATTEND Internal Medicine Cardiovascular Disease
DX: I50.22 Chronic systolic (congestive) heart failure (principal); I48.2 Chronic atrial fibrillation; R60.0 Localized edema; N18.3 Chronic kidney disease, stage 3 (moderate); Z79.01 Long term (current) use of anticoagulants
CPT/HCPCS: 36415; 80048; 83880

== ENCOUNTER 2017-12-21 00:17 | Emergency (ER) | payer MEDICARE, BC ==
[2017-12-21] MEDS ORDERED: IPRATROPIUM/ALBUTEROL 0.5-2.5 MG/3 ML AMPUL NEB ONE ×2 (00:39→00:40)
[2017-12-21] MEDS ORDERED: LIDOCAINE 2% INJ-PF (20 MG/ML) 10 ML AMPUL NEB ONE ×2 (00:50→03:11)
[2017-12-21 00:57] LABS: HEMATOCRIT 32.5 % (36.0-47.0); MEAN CORPUSCULAR HEMOGLOBIN 31.8 pg (27.0-33.4); MEAN CORPUSCULAR HGB CONC 33.9 g/dL (32.0-36.0); MEAN CORPUSCULAR VOLUME 94 fl (80-97); RED BLOOD COUNT 3.46 10^6/uL (3.72-5.28); RED CELL DISTRIBUTION WIDTH 16.1 % (11.5-14.0); WHITE BLOOD COUNT 5.4 10^3/uL (4.0-10.5)
--- NOTE | 2017-12-21 01:02 | ER Document Report ---
ED General - General TRAVEL OUTSIDE OF THE [place] IN LAST 30 DAYS: No <DAMIAN GARVEY - Last Filed: 12/21/17 03:36> <YAMEL EDWARD - Last Filed: 12/21/17 06:10> - General Chief Complaint: Breathing Difficulty Stated Complaint: BREATHING PROBLEMS Time Seen by Provider: 12/21/17 00:35 Notes: Patient is an 87-year-old female with a past medical history of congestive heart failure, hypertension, hyperlipidemia, who presents with a persistent coughing episode that started approximately 1 hour prior to arrival. Her son and care worker reports that apparently she had some coughing at dinner and it seem that she may have choked on a piece of food. The patient then took a hydrocodone syrup that she has available to her for coughing but seem to have gagged or choked on that syrup and the coughing then became substantially worse. EMS was contacted and the patient was subsequently brought to the emergency department. The patient and family deny any history of similar symptoms in the past. They state that she had always been doing well today had an active, normal day, went shopping without any difficulty shortly prior to the onset of her symptoms. The patient states that she does feel like she is having some shortness of breath but her main issue is regarding a sensation of choking or coughing. She denies any chest pain, headache, focal weakness or numbness. She has not seen her general doctor regarding today's concerns. ( DAMIAN GARVEY) - Related Data Allergies/Adverse Reactions: amlodipine Allergy (Verified 12/21/17 01:24) lisinopril Allergy (Verified 12/21/17 01:24) metoprolol Allergy (Verified 12/21/17 01:24) Penicillins Allergy (Verified 12/21/17 01:24) ramipril Allergy (Verified 12/21/17 01:24) simvastatin [From Zocor] Allergy (Verified 12/21/17 01:24) vancomycin Allergy (Verified 12/21/17 01:24) enoxaparin [From Lovenox] Adverse Reaction (Verified 12/21/17 01:24) prochlorperazine [From Compazine] Adverse Reaction (Verified 12/21/17 01:24) Past Medical History - General Information source: Patient, Relative - Social History Smoking Status: Never Smoker Frequency of alcohol use: None Drug Abuse: None Lives with: Family Family History: CAD, Hypertension - Past Medical History Cardiac Medical History: Reports: Hx Atrial Fibrillation, Hx Congestive Heart Failure, Hx Hypercholesterolemia, Hx Hypertension Denies: Hx Coronary Artery Disease, Hx Heart Attack Pulmonary Medical History: Denies: Hx Asthma, Hx Bronchitis, Hx COPD, Hx Pneumonia, Hx Tuberculosis Neurological Medical History: Denies: Hx Cerebrovascular Accident, Hx Seizures Renal/ Medical History: Denies: Hx Peritoneal Dialysis Musculoskeltal Medical History: Reports Hx Arthritis - knees and hips Psychiatric Medical History: Reports: Hx Depression - mild Past Surgical History: Reports: Hx Cardiac Surgery - pacemaker, Hx Hysterectomy , Hx Pacemaker, Hx Valve Replacement - Mitral valve 1994 - Immunizations Hx Diphtheria, Pertussis, Tetanus Vaccination: Yes Hx Pneumococcal Vaccination: 06/21/09 <DAMIAN GARVEY - Last Filed: 12/21/17 03:36> Review of Systems <DAMIAN GARVEY - Last Filed: 12/21/17 03:36> <YAMEL EDWARD - Last Filed: 12/21/17 06:10> - Review of Systems Notes: Constitutional: Negative for fever. HENT: Negative for sore throat. Eyes: Negative for visual changes. Cardiovascular: Negative for chest pain. Respiratory: Positive for shortness of breath and persistent coughing Gastrointestinal: Negative for abdominal pain, vomiting or diarrhea. Genitourinary: Negative for dysuria. Musculoskeletal: Negative for back pain. Skin: Negative for rash. Neurological: Negative for headaches, weakness or numbness. 10 point ROS negative except as marked above and in HPI. (DAMIAN GARVEY) Physical Exam - Vital signs Interpretation: Normal <DAMIAN GARVEY - Last Filed: 12/21/17 03:36> <YAMEL EDWARD - Last Filed: 12/21/17 06:10> - Vital signs Vitals: Temp Pulse Resp BP Pulse Ox 98.1 F 81 81 H 110/71 96 12/21/17 00:27 12/21/17 00:27 12/21/17 00:27 12/21/17 00:27 12/21/17 00:27 Notes: PHYSICAL EXAMINATION: GENERAL: Appears mildly uncomfortable but in no distress. HEAD: Atraumatic, normocephalic. EYES: Pupils equal round and reactive to light, extraocular movements intact, sclera anicteric, conjunctiva are normal. ENT: nares patent, oropharynx clear without exudates. Moist mucous membranes. NECK: Normal range of motion, supple without lymphadenopathy, no stridor LUNGS: Breath sounds clear to auscultation bilaterally and equal. No wheezes rales or rhonchi. HEART: Irregularly irregular rhythm. No murmurs. ABDOMEN: Soft, nontender, normoactive bowel sounds. No guarding, no rebound. No masses appreciated. EXTREMITIES: Trace edema in the bilateral lower extremities that is equal and symmetric. No cyanosis. NEUROLOGICAL: No focal neurological deficits. Moves all extremities spontaneously and on command. PSYCH: Normal mood, normal affect. SKIN: Warm, Dry, normal turgor, no rashes or lesions noted. (DAMIAN GARVEY) Course - Laboratory Result Diagrams: 12/21/17 00:40 12/21/17 00:40 - Diagnostic Test Radiology reviewed: Image reviewed, Reports reviewed <DAMIAN GARVEY - Last Filed: 12/21/17 03:36> - Laboratory Result Diagrams: 12/21/17 00:40 12/21/17 00:40 <YAMEL EDWARD - Last Filed: 12/21/17 06:10> - Re-evaluation Re-evalutation: 12/21/17 00:58 Patient presents somewhat ill in appearance, coughing frequently and appears to have somewhat labored breathing. This apparently started after she had a possible aspiration event earlier this evening. Patient is noted to be hypoxic to 91% on room air and does not normally have an patient's lung examination shows mildly diminished sounds at the right upper and middle lobe but otherwise unremarkable without wheezing or rales. Oropharynx is clear. No stridor. Will obtain x-rays, labs, reassess the patient. 12/21/17 01:59 Patient has had significant improvement after receiving nebulized lidocaine. She is now saturating 97-100% on room air. Chest x-ray shows no changes from prior, no obvious infiltrate or pulmonary edema. Labs effectively unchanged from her prior assessment. Her weight is 5 kg down from her discharge weight and I have a very low clinical suspicion for a volume overload picture. Awaiting soft tissue neck x-ray. If this is otherwise unremarkable the family and patient are comfortable with discharge home as a mine. 12/21/17 03:36 I have called and spoken with the radiology group and they verbally read to me over the phone that there is apparently an area of swelling in the patient's soft tissue space and that a CT of the neck is indicated to further clarify. We have ordered a CT of the neck with IV contrast. I have updated the family who is agreeable to this plan. The patient did have some recurrence of her coughing and is again being treated with a second lidocaine nebulizer with improvement. (DAMIAN GARVEY) 12/21/17 06:05 CT Soft tissue neck does not reveal any acute abnormalities. The soft tissue prominence was related to a tortuous carotid. Patient is feeling much better and is not having any trouble swallowing. She has not had any coughing either. Offered patient observation for further symptom monitoring , but she feels better and would like to go home. She will follow-up with her primary care physician, Dr. Almeida, for further evaluation treatment. She is satting above 94% room air and lungs are clear. Given very strict return precautions and she understands. (YAMEL EDWARD) - Vital Signs Vital signs: Temp Pulse Resp BP Pulse Ox 98.3 F 81 17 116/64 96 12/21/17 05:00 12/21/17 00:27 12/21/17 06:01 12/21/17 06:01 12/21/17 06:01 - Laboratory Laboratory results interpreted by me: 12/21/17 12/21/17 12/21/17 00:40 00:40 00:40 RBC 3.46 L Hgb 11.0 L Hct 32.5 L RDW 16.1 H Plt Count 63 L Sodium 145.2 H BUN 24 H Glucose 115 H NT-Pro-B Natriuret Pep 2170 H - Diagnostic Test Radiology results interpreted by me: 12/21/17 03:05 Chest x-ray: No acute infiltrate or vascular congestion (DAMIAN GARVEY) - EKG Interpretation by Me Additional EKG results interpreted by me: 12/21/17 03:06 Atrial fibrillation, rate 82. No ST elevations or depressions. Unchanged from prior assessment. QTC is 477. (DAMIAN GARVEY) Discharge <DAMIAN GARVEY - Last Filed: 12/21/17 03:36> <YAMEL EDWARD - Last Filed: 12/21/17 06:10> - Discharge Clinical Impression: Coughing, Shortness of breath Aspiration into airway Qualifiers: Encounter type: initial encounter Qualified Code(s): T17.908A - Unspecified foreign body in respiratory tract, part unspecified causing other injury, initial encounter Condition: Stable Disposition: HOME, SELF-CARE Additional Instructions: Please follow-up with your general doctor in the morning. Return if you have difficulty breathing, worsening coughing, vomiting, or any other symptoms that are worrisome to you. Prescriptions: Albuterol Sulfate [Albuterol Sulfate 5mg/1 mL] 5 mg NEB Q4 PRN #30 ml PRN Reason: Referrals: JD COY MD [Primary Care Provider] - Follow up as needed
--- NOTE | 2017-12-21 01:16 | RADIOLOGY REPORT (SQ) ---
EXAM DESCRIPTION: XR CHEST 1 VIEW COMPLETED DATE/TME: 12/21/2017 00:35 CLINICAL HISTORY: 87 years Female, cough COMPARISON: 3.19.18 NUMBER OF VIEWS/TECHNIQUE: 1/AP, limitation: Rotation FINDINGS: Adequate lung volume, chronic right perihilar opacity/scar, normal cardiac silhouette, left cardiac stimulator with leads, sternotomy, atherosclerosis, stable. IMPRESSION: No significant change. Limitation.
[2017-12-21 01:17] LABS: NT PRO BNP 2170 pg/mL (<450)
[2017-12-21 01:18] LABS: PLATELET COUNT 63 10^3/uL (150-450); TROPONIN I < 0.012 ng/mL
[2017-12-21 01:22] LABS: ALANINE AMINOTRANSFERASE 27 U/L (9-52); ALBUMIN 4.1 g/dL (3.5-5.0); ALKALINE PHOSPHATASE 123 U/L (38-126); ANION GAP 10 (5-19); ASPARTATE AMINO TRANSFERASE 34 U/L (14-36); BILIRUBIN,DIRECT 0.4 mg/dL (0.0-0.4); BILIRUBIN,TOTAL 0.6 mg/dL (0.2-1.3); BLOOD UREA NITROGEN 24 mg/dL (7-20); CALCIUM 9.4 mg/dL (8.4-10.2); CARBON DIOXIDE 30 mmol/L (22-30); CHLORIDE 105 mmol/L (98-107); GLUCOSE 115 mg/dL (75-110); POTASSIUM 4.4 mmol/L (3.6-5.0); SODIUM 145.2 mmol/L (137-145); TOTAL PROTEIN 7.4 g/dL (6.3-8.2)
[2017-12-21] MEDS ORDERED: OXYMETAZOLINE HCL 0.05% NASAL SPRAY 15 ML BOTTLE NASL ONE (01:58)
[2017-12-21] MEDS ORDERED: BENZONATATE 100 MG CAPSULE PO ONE (02:01)
[2017-12-21] MEDS ORDERED: DEXAMETHASONE 4 MG TABLET PO ONE (03:13)
[2017-12-21 06:03] VITALS: BP 116/64
--- NOTE | 2017-12-21 06:17 | EKG REPORT ---
SEVERITY:- ABNORMAL ECG - ATRIAL FIBRILLATION NONSPECIFIC INTRAVENTRICULAR CONDUCTION DELAY DIFFUSE NONSPECIFIC ST-T CHANGES : Confirmed by: Shawn Diaz MD 21-Dec-2017 06:16:21
--- NOTE | 2017-12-21 09:06 | RADIOLOGY REPORT (SQ) ---
EXAM DESCRIPTION: XR NECK SOFT TISSUE COMPLETED DATE/TME: 12/21/2017 00:51 CLINICAL HISTORY: 87 years, Female, choking sensation COMPARISON: None. NUMBER OF VIEWS: 2 LIMITATIONS: None. FINDINGS: Nonspecific 2.6 cm thickening of the prevertebral soft tissues at the C6 level. Patent nasopharynx and airway. No radiopaque foreign body. Partial fusion and advanced disc desiccation/spondylosis of the cervical spine. IMPRESSION: Nonspecific 2.6 cm prevertebral soft tissue thickening at the C6 level. Recommend further evaluation with contrast CT of the neck and/or fluoroscopic contrast esophagram, as clinically warranted.
--- NOTE | 2017-12-21 09:08 | RADIOLOGY REPORT (SQ) ---
EXAM DESCRIPTION: CT neck with contrast CLINICAL HISTORY: 87 years Female soft tissue neck swelling follow up COMPARISON: 12/21/2017 plain films Time and date completed: 12/21/2017 3:51 AM. TECHNIQUE: Contiguous axial images obtained through the neck with IV contrast. Reformatted images obtained. This exam was performed according to our department optimization program which includes automated exposure control, adjustment of the mA and/or kv according to patient size and/or use of iterative reconstruction technique. FINDINGS: There is mild age-appropriate atrophy in the visualized segments of the intracranial structures. The common carotid arteries are markedly tortuous and deviate medially along the region of the retropharynx which may account in part for soft tissue prominence noted. Additionally the internal carotid arteries are tortuous particularly on the right indenting the right aspect of the nasopharynx. The parotid glands submandibular glands, epiglottis and thyroid appear within normal limits for the patient's age. Prominent internal jugular vein on the right. Scattered lymph nodes in the neck likely reactive. No enlarged nodes or mass lesions are identified. No fluid or significant mucosal thickening in the visualized paranasal sinuses. Nonspecific groundglass densities in the upper lobes and emphysematous change. There is deformity at C5-C6 and C7 with chronic appearing effusion. There is no evidence of prevertebral soft tissue swelling. 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
== END 2017-12-21 06:10 | disposition home or self-care (01) ==
LOC: ER 00:17
DX: R05 Cough (principal); R06.02 Shortness of breath; T17.908A Unspecified foreign body in respiratory tract, part unspecified causing other injury, initial encounter; X58.XXXA Exposure to other specified factors, initial encounter; I50.9 Heart failure, unspecified; I11.0 Hypertensive heart disease with heart failure; E78.00 Pure hypercholesterolemia, unspecified; Z88.0 Allergy status to penicillin; Z88.3 Allergy status to other anti-infective agents; I48.91 Unspecified atrial fibrillation; Z95.0 Presence of cardiac pacemaker; Z95.1 Presence of aortocoronary bypass graft; Z90.710 Acquired absence of both cervix and uterus
CPT/HCPCS: 93005; 94640 ×2; 99285; 36415; 85027; 80053; 84484; 83880; 71045; 70360; 70491; 93010; A9270 ×3; J3490 ×2; J7620

== ENCOUNTER → 2018-02-22 | Outpatient (CLI) | payer MEDICARE, BC ==
[2018-02-22 10:59] LABS: ALANINE AMINOTRANSFERASE 41 U/L (9-52); ALBUMIN 3.7 g/dL (3.5-5.0); ALKALINE PHOSPHATASE 109 U/L (38-126); ANION GAP 9 (5-19); ASPARTATE AMINO TRANSFERASE 33 U/L (14-36); BILIRUBIN,DIRECT 0.3 mg/dL (0.0-0.4); BILIRUBIN,TOTAL 0.5 mg/dL (0.2-1.3); BLOOD UREA NITROGEN 31 mg/dL (7-20); CALCIUM 8.9 mg/dL (8.4-10.2); CARBON DIOXIDE 32 mmol/L (22-30); CHLORIDE 101 mmol/L (98-107); GLUCOSE 110 mg/dL (75-110); POTASSIUM 4.2 mmol/L (3.6-5.0); SODIUM 141.7 mmol/L (137-145); TOTAL PROTEIN 6.8 g/dL (6.3-8.2)
== END ==
LOC: LAB 10:13
PROVIDERS: ATTEND Internal Medicine Cardiovascular Disease
DX: R06.02 Shortness of breath (principal); I50.22 Chronic systolic (congestive) heart failure; R60.0 Localized edema; N18.3 Chronic kidney disease, stage 3 (moderate); Z79.899 Other long term (current) drug therapy; I13.0 Hypertensive heart and chronic kidney disease with heart failure and stage 1 through stage 4 chronic kidney disease, or unspecified chronic kidney disease
CPT/HCPCS: 36415; 80048; 80076; 83880

== ENCOUNTER → 2018-03-01 | Outpatient (CLI) | payer MEDICARE, BC ==
[2018-03-01 10:34] LABS: ANION GAP 6 (5-19); BLOOD UREA NITROGEN 29 mg/dL (7-20); CALCIUM 9.5 mg/dL (8.4-10.2); CARBON DIOXIDE 36 mmol/L (22-30); CHLORIDE 102 mmol/L (98-107); GLUCOSE 98 mg/dL (75-110); POTASSIUM 4.2 mmol/L (3.6-5.0); SODIUM 144.2 mmol/L (137-145)
== END ==
LOC: LAB 09:45
PROVIDERS: ATTEND Internal Medicine Cardiovascular Disease
DX: I50.22 Chronic systolic (congestive) heart failure (principal); R06.02 Shortness of breath; R60.0 Localized edema; I48.2 Chronic atrial fibrillation
CPT/HCPCS: 36415; 80048; 83880

== ENCOUNTER → 2018-03-10 | Outpatient (CLI) | payer MEDICARE, BC ==
[2018-03-10 10:07] LABS: ANION GAP 7 (5-19); BLOOD UREA NITROGEN 21 mg/dL (7-20); CALCIUM 9.1 mg/dL (8.4-10.2); CARBON DIOXIDE 30 mmol/L (22-30); CHLORIDE 99 mmol/L (98-107); GLUCOSE 154 mg/dL (75-110); POTASSIUM 4.7 mmol/L (3.6-5.0); SODIUM 135.9 mmol/L (137-145)
== END ==
LOC: LAB 09:26
PROVIDERS: ATTEND Internal Medicine Cardiovascular Disease
DX: I50.22 Chronic systolic (congestive) heart failure (principal); I48.2 Chronic atrial fibrillation; R06.02 Shortness of breath; R60.0 Localized edema
CPT/HCPCS: 36415; 80048; 83880

== ENCOUNTER 2018-03-30 22:38 | Observation (INO) | payer MEDICARE, BC ==
--- NOTE | 2018-03-30 22:59 | RADIOLOGY REPORT (SQ) ---
PROCEDURE: XR CHEST 1 VIEW HISTORY: CP COMPARISON: 12/21/2017 TECHNIQUE: The study was done on 03/30/2018 at 10:50 PM local time Single projection of the chest was done. FINDINGS: Note is again made of median sternotomy. There is stable position of the unipolar left-sided pacemaker wire. There is stable discoid atelectasis/parenchymal scarring in the left CP angle . There are no discrete airspace infiltrates, pneumothoraces or pleural effusions. The pulmonary vascularity is normal. The cardiomediastinal silhouette is stable. IMPRESSION: There is no acute pleural-parenchymal process seen in the imaged lung tena. Location of Interpretation: [facility]
--- NOTE | 2018-03-30 23:04 | ER Document Report ---
ED General - General Chief Complaint: Chest Pain Stated Complaint: CHEST PAIN Time Seen by Provider: 03/30/18 22:48 Notes: Patient is a 87-year-old female presents with complaint of an episode of chest pain started tonight when she was playing cards. Chest pain was severe and over the anterior chest. It did not radiate. It lasted 10-15 minutes and then eventually went away. Patient currently is chest pain-free. She does have history of coronary disease. She has history of atrial fibrillation. She does have a pacemaker. She is followed by Dr. Coy for cardiology and Dr. Prieto for her pacemaker. Patient is no longer on blood thinning medications for A. fib due to previous hematomas. Patient's last heart cath was 3-4 years ago. No recent cardiac stress testing. TRAVEL OUTSIDE OF THE [place] IN LAST 30 DAYS: No - Related Data Allergies/Adverse Reactions: amlodipine Allergy (Verified 12/21/17 01:24) lisinopril Allergy (Verified 12/21/17 01:24) metoprolol Allergy (Verified 12/21/17 01:24) Penicillins Allergy (Verified 12/21/17 01:24) ramipril Allergy (Verified 12/21/17 01:24) simvastatin [From Zocor] Allergy (Verified 12/21/17 01:24) vancomycin Allergy (Verified 12/21/17 01:24) enoxaparin [From Lovenox] Adverse Reaction (Verified 12/21/17 01:24) prochlorperazine [From Compazine] Adverse Reaction (Verified 12/21/17 01:24) Past Medical History - Social History Smoking Status: Never Smoker Frequency of alcohol use: None Drug Abuse: None Family History: CAD, Hypertension - Past Medical History Cardiac Medical History: Reports: Hx Atrial Fibrillation, Hx Congestive Heart Failure, Hx Hypercholesterolemia, Hx Hypertension Denies: Hx Coronary Artery Disease, Hx Heart Attack Pulmonary Medical History: Denies: Hx Asthma, Hx Bronchitis, Hx COPD, Hx Pneumonia, Hx Tuberculosis Neurological Medical History: Denies: Hx Cerebrovascular Accident, Hx Seizures Renal/ Medical History: Denies: Hx Peritoneal Dialysis Musculoskeletal Medical History: Reports Hx Arthritis - knees and hips Psychiatric Medical History: Reports: Hx Depression - mild Past Surgical History: Reports: Hx Cardiac Surgery - pacemaker, Hx Hysterectomy , Hx Orthopedic Surgery - hip surgery, Hx Pacemaker, Hx Valve Replacement - Mitral valve 1994 - Immunizations Hx Diphtheria, Pertussis, Tetanus Vaccination: Yes Hx Pneumococcal Vaccination: 06/21/09 Review of Systems - Review of Systems Notes: My Normal Review Basic REVIEW OF SYSTEMS: CONSTITUTIONAL : Denies fever, chills, or sweats. Denies recent illness. EENT: Denies eye, ear, throat, or mouth pain or symptoms. Denies nasal or sinus congestion. CARDIOVASCULAR: Has pain RESPIRATORY: Denies cough, cold, or chest congestion. Denies shortness of breath, difficulty breathing, or wheezing. GASTROINTESTINAL: Denies abdominal pain. Denies nausea, vomiting, or diarrhea. GENITOURINARY: Denies difficulty urinating, painful urination, burning, frequency, or blood in urine. MUSCULOSKELETAL: Denies neck or back pain or joint pain or swelling. SKIN: Denies rash or skin lesions. NEUROLOGICAL: Denies altered mental status or loss of consciousness. Denies headache. Denies weakness or paralysis or loss of use of either side. Denies problems with gait or speech. Denies sensory or motor loss. ALL OTHER SYSTEMS REVIEWED AND NEGATIVE. Physical Exam - Vital signs Vitals: Resp 11 L 03/30/18 22:23 - Notes Notes: General Appearance: Well nourished, alert, cooperative, no acute distress, no obvious discomfort. Well-appearing Vitals: reviewed, See vital signs table. Head: no swelling or tenderness to the head Eyes: PERRL, EOMI, Conjuctiva clear Mouth: No decreasd moisture Chest wall: Sternal scar. Pacemaker in left upper chest. Lungs: No wheezing, No rales, No rhonci, No accessory muscle use, good air exchange bilaterally. Heart: Normal rate, Regular rythm, No murmur, no rub Abdomen: Normal BS, soft, No rigidity, No abdominal tenderness, No guarding, no rebound, no abdominal masses, no organomegaly Extremities: strength 5/5 in all extremities, good pulses in all extremities, no swelling or tenderness in the extremities, 3+ edema in B/L LEs. Skin: Darkening of the skin of the lower legs which appears chronic. Neuro: speech clear, oriented x 3, normal affect, responds appropriately to questions. Course - Re-evaluation Re-evalutation: 03/31/18 00:00 I discussed case with Dr. Fernandez, hospitalist. He requests that I just get a quick repeat troponins to make sure it is not rapidly increasing. I informed the patient and family of this plan and they are agreeable to it. Repeat troponin has been scheduled for 12:55 AM. Remains chest pain-free and continues to clinically looks very well. 03/31/18 01:41 Repeat troponin is negative. Dr. Fernandez agrees to admit the patient. Dictation of this chart was performed using voice recognition software; therefore, there may be some unintended grammatical errors. - Vital Signs Vital signs: Temp Pulse Resp BP Pulse Ox 98.1 F 16 110/84 95 03/30/18 22:58 03/31/18 00:01 03/31/18 00:01 03/31/18 00:01 - Laboratory Result Diagrams: 03/30/18 22:55 03/30/18 22:55 Laboratory results interpreted by me: 03/30/18 03/30/18 22:55 22:55 RBC 3.68 L Hct 35.4 L RDW 15.3 H Plt Count 88 L Chloride 97 L Carbon Dioxide 31 H BUN 30 H Est GFR (Non-Af Amer) 52 L Glucose 111 H AST 46 H ALT 56 H Creatine Kinase < 20 L - EKG Interpretation by Me Additional EKG results interpreted by me: 03/30/18 22:58 EKG is reviewed and interpreted by me. EKG shows atrial fibrillation that then changes into paced rhythm. A lot of the leads have a lot of static artifact making them difficult to interpret fully. This likely is related to her pacemaker. She has slight ST segment depression in lead II which is unchanged comparison to her old EKG from December 21, 2017. QRS duration is prolonged. QT interval is prolonged. Discharge - Discharge Clinical Impression: Chest pain Qualifiers: Chest pain type: unspecified Qualified Code(s): R07.9 - Chest pain, unspecified Condition: Stable Disposition: ADMITTED OBSERVATION Admitting Provider: Hospitalist Unit Admitted: Telemetry Referrals: JD COY MD [Primary Care Provider] - Follow up as needed
[2018-03-30 23:09] LABS: ABSOLUTE EOSINOPHILS # (AUTO) 0.1 10^3/uL (0.0-0.6); ABSOLUTE LYMPHOCYTES (AUTO) 1.2 10^3/uL (0.5-4.7); ABSOLUTE MONOCYTES (AUTO) 0.6 10^3/uL (0.1-1.4); ABSOLUTE NEUT (AUTO) 3.2 10^3/uL (1.7-8.2); BASOPHILS % (AUTO) 0.3 % (0-2); EOSINOPHILS % (AUTO) 1.5 % (0-6); HEMATOCRIT 35.4 % (36.0-47.0); HEMOGLOBIN 12.2 g/dL (12.0-15.5); LYMPHOCYTES % (AUTO) 23.2 % (13-45); MEAN CORPUSCULAR HEMOGLOBIN 33.2 pg (27.0-33.4); MEAN CORPUSCULAR HGB CONC 34.4 g/dL (32.0-36.0); MEAN CORPUSCULAR VOLUME 96 fl (80-97); MONOCYTES % (AUTO) 12.3 % (3-13); RED BLOOD COUNT 3.68 10^6/uL (3.72-5.28); RED CELL DISTRIBUTION WIDTH 15.3 % (11.5-14.0); SEGMENTED NEUTROPHILS % (AUTO) 62.7 % (42-78); TOTAL CELLS COUNTED % (AUTO) 100 %; WHITE BLOOD COUNT 5.1 10^3/uL (4.0-10.5)
[2018-03-30 23:18] LABS: ALANINE AMINOTRANSFERASE 56 U/L (9-52); ALBUMIN 3.9 g/dL (3.5-5.0); ALKALINE PHOSPHATASE 91 U/L (38-126); ANION GAP 10 (5-19); ASPARTATE AMINO TRANSFERASE 46 U/L (14-36); BILIRUBIN,DIRECT 0.1 mg/dL (0.0-0.4); BILIRUBIN,TOTAL 0.4 mg/dL (0.2-1.3); BLOOD UREA NITROGEN 30 mg/dL (7-20); CALCIUM 9.4 mg/dL (8.4-10.2); CARBON DIOXIDE 31 mmol/L (22-30); CHLORIDE 97 mmol/L (98-107); CREATINE KINASE < 20 U/L (30-135); GLUCOSE 111 mg/dL (75-110); POTASSIUM 4.2 mmol/L (3.6-5.0); SODIUM 137.5 mmol/L (137-145); TOTAL PROTEIN 6.9 g/dL (6.3-8.2)
[2018-03-30 23:27] LABS: PLATELET COUNT 88 10^3/uL (150-450)
[2018-03-30 23:29] LABS: CREATINE KINASE MB 0.78 ng/mL (<4.55)
[2018-03-30 23:30] LABS: TROPONIN I < 0.012 ng/mL
[2018-03-31] MEDS ORDERED: NITROGLYCERIN 0.4 MG/TAB 25 TAB/BOTTLE SL PRN (01:54)
[2018-03-31] MEDS ORDERED: MAG HYDROX/AL HYDROX/SIMETH SUSP 30 ML UDCUP PO PRN (01:54)
--- NOTE | 2018-03-31 06:15 | PDOC H&P ---
History of Present Illness Admission Date/PCP: 03/31/18 02:04 JD DIAZ MD Patient complains of: Chest pain History of Present Illness: ALESIA GRECO is a 87 year old female with a past medical history of myelodysplasia, thrombocytopenia, pulmonary hypertension, coronary artery disease, permanent pacemaker, atrial fibrillation without anticoagulation secondary to thrombocytopenia and falls. She presents 1 hour after 5 out of 5, retrosternal, nonradiating, squeezing and sharp chest pain lasting 15 min, resolving without intervention. She denies shortness of breath, palpitations, nausea vomiting or diaphoresis. It occurred while playing cards. Her workup is unremarkable from baseline. She denies recent change in medication, recent stress test, cardiac cath 3-4 years ago at [facility] with Dr. Prieto. She is referred to the hospitalist for admission. Past Medical History Cardiac Medical History: Reports: Atrial Fibrillation, Congestive Heart Failure , Hyperlipidema, Hypertension Denies: Coronary Artery Disease, Myocardial Infarction Pulmonary Medical History: Denies: Asthma, Bronchitis, Chronic Obstructive Pulmonary Disease (COPD), Pneumonia, Tuberculosis Neurological Medical History: Denies: Seizures Musculoskeltal Medical History: Reports: Arthritis - knees and hips Psychiatric Medical History: Reports: Depression - mild Hematology: Reports: Anemia Past Surgical History Past Surgical History: Reports: Hysterectomy, Orthopedic Surgery - hip surgery, Pacemaker, Valve Replacement - Mitral valve 1994 Social History Information Source: Patient, Emergency Med Personnel, [facility] Records Lives with: Family Smoking Status: Never Smoker Frequency of Alcohol Use: None Hx Recreational Drug Use: No Drugs: None Hx Prescription Drug Abuse: No - Advance Directive Resuscitation Status: Full Code Family History Family History: CAD, Hypertension Parental Family History Reviewed: Yes Children Family History Reviewed: Yes Sibling(s) Family History Reviewed.: Yes Medication/Allergy Home Medications: Atorvastatin Calcium [Lipitor 20 mg Tablet] 20 mg PO QHS 09/07/17 Carvedilol [Coreg 12.5 mg Tablet] 12.5 mg PO Q12 09/07/17 Cyanocobalamin (Vitamin B-12) [Vitamin B-12 1000 mcg Tablet] 1,000 mcg PO DAILY 09/07/17 Docusate Sodium [Colace 100 mg Capsule] 300 mg PO DAILY 09/07/17 Escitalopram Oxalate [Lexapro 10 mg Tablet] 10 mg PO DAILY 09/07/17 Lorazepam [Ativan 0.5 mg Tablet] 0.5 mg PO QHS 09/07/17 Pregabalin [Lyrica] 150 mg PO Q12 09/07/17 Spironolactone [Aldactone 25 mg Tablet] 25 mg PO DAILY 09/07/17 Vit D3/Folic Acid/B2/B6/B12 [Folgard Tablet] 1 cap PO DAILY 09/07/17 Torsemide [Demadex 10 mg Tablet] 10 mg PO DAILY #0 09/09/17 Albuterol Sulfate [Albuterol Sulfate 5mg/1 mL] 5 mg NEB Q4 PRN #30 ml 12/21/17 Allergies/Adverse Reactions: amlodipine Allergy (Verified 12/21/17 01:24) lisinopril Allergy (Verified 12/21/17 01:24) metoprolol Allergy (Verified 12/21/17 01:24) Penicillins Allergy (Verified 12/21/17 01:24) ramipril Allergy (Verified 12/21/17 01:24) simvastatin [From Zocor] Allergy (Verified 12/21/17 01:24) vancomycin Allergy (Verified 12/21/17 01:24) enoxaparin [From Lovenox] Adverse Reaction (Verified 12/21/17 01:24) prochlorperazine [From Compazine] Adverse Reaction (Verified 12/21/17 01:24) Review of Systems Constitutional: ABSENT: chills, fever(s), headache(s), weight gain, weight loss Eyes: ABSENT: visual disturbances Ears: ABSENT: hearing changes Cardiovascular: ABSENT: chest pain, dyspnea on exertion, edema, orthropnea, palpitations Respiratory: ABSENT: cough, hemoptysis Gastrointestinal: ABSENT: abdominal pain, constipation, diarrhea, hematemesis, hematochezia, nausea, vomiting Genitourinary: ABSENT: dysuria, hematuria Musculoskeletal: ABSENT: joint swelling Integumentary: ABSENT: rash, wounds Neurological: ABSENT: abnormal gait, abnormal speech, confusion, dizziness, focal weakness, syncope Psychiatric: ABSENT: anxiety, depression, homidical ideation, suicidal ideation Endocrine: ABSENT: cold intolerance, heat intolerance, polydipsia, polyuria Hematologic/Lymphatic: ABSENT: easy bleeding, easy bruising Physical Exam Vital Signs: Temp Pulse Resp BP Pulse Ox 97.5 F 73 16 124/54 L 96 03/31/18 03:01 03/31/18 03:01 03/31/18 03:01 03/31/18 03:01 03/31/18 03:01 Intake & Output 03/29/18 03/30/18 03/31/18 11:59 11:59 11:59 Weight 60.2 kg General appearance: PRESENT: no acute distress, well-developed, well-nourished Head exam: PRESENT: atraumatic, normocephalic Eye exam: PRESENT: conjunctiva pink, EOMI, PERRLA. ABSENT: scleral icterus Ear exam: PRESENT: normal external ear exam Mouth exam: PRESENT: moist, tongue midline Neck exam: ABSENT: carotid bruit, JVD, lymphadenopathy, thyromegaly Respiratory exam: PRESENT: clear to auscultation melvi. ABSENT: rales, rhonchi, wheezes Cardiovascular exam: PRESENT: irregular rhythm, +S1, +S2. ABSENT: diastolic murmur, rubs, systolic murmur Pulses: PRESENT: normal dorsalis pedis pul Vascular exam: PRESENT: normal capillary refill GI/Abdominal exam: PRESENT: normal bowel sounds, soft. ABSENT: distended, guarding, mass, organolmegaly, rebound, tenderness Rectal exam: PRESENT: deferred Extremities exam: PRESENT: full ROM. ABSENT: calf tenderness, clubbing, pedal edema Neurological exam: PRESENT: alert, awake, oriented to person, oriented to place , oriented to time, oriented to situation, CN II-XII grossly intact. ABSENT: motor sensory deficit Psychiatric exam: PRESENT: appropriate affect, normal mood. ABSENT: homicidal ideation, suicidal ideation Skin exam: PRESENT: dry, intact, warm. ABSENT: cyanosis, rash Results Impressions: Chest X-Ray 03/30/18 22:39 IMPRESSION: There is no acute pleural-parenchymal process seen in the imaged lung tena. Location of Interpretation: T[facility]iology Assessment & Plan - Diagnosis (1) Chest pain Qualifiers: Chest pain type: unspecified Qualified Code(s): R07.9 - Chest pain, unspecified Is this a current diagnosis for this admission?: Yes Plan: Chest pain care set, follow-up cardiology consult with Dr. Diaz and Cardiolite stress test. (2) Constipation Is this a current diagnosis for this admission?: Yes Plan: Suspecting GI source for #1, trial lactulose. - Time Time Spent: 30 to 50 Minutes
[2018-03-31] MEDS ORDERED: LACTULOSE SYRUP 20 GM/30 ML UDCUP PO ONE (06:45)
--- NOTE | 2018-03-31 06:48 | EKG REPORT ---
SEVERITY:- ABNORMAL ECG - AFIB/FLUT AND V-PACED COMPLEXES NONSPECIFIC INTRAVENTRICULAR CONDUCTION DELAY NONSPECIFIC ST DEPRESSION : Confirmed by: Christina Bojorquez MD 31-Mar-2018 06:47:32
[2018-03-31 08:14] LABS: CHOLESTEROL 171.98 mg/dL (0-200); TRIGLYCERIDES 52 mg/dL (<150)
[2018-03-31 08:25] LABS: DIRECT LDL 43 mg/dL (<100)
[2018-03-31 08:27] LABS: CREATINE KINASE MB 0.64 ng/mL (<4.55)
[2018-03-31 08:29] LABS: TROPONIN I < 0.012 ng/mL
--- NOTE | 2018-03-31 10:25 | PDOC PROGRESS REPORT ---
Subjective Progress Note for:: 03/31/18 Subjective:: Patient comes in today she experienced an episode of chest pain last night which was pretty sharp in intensity presently she is asymptomatic she just ambulated to the bathroom without any shortness of breath or palpitations no nausea vomiting. Reason For Visit: CHEST PAIN THROMBOCYTOPENIA, AFIB Physical Exam Vital Signs: Temp Pulse Resp BP Pulse Ox 98.2 F 66 16 107/44 L 92 03/31/18 07:57 03/31/18 07:57 03/31/18 07:57 03/31/18 07:57 03/31/18 07:57 Intake & Output 03/30/18 03/31/18 04/01/18 06:59 06:59 06:59 Weight 60.2 kg General appearance: PRESENT: no acute distress, well-developed, well-nourished Head exam: PRESENT: atraumatic, normocephalic Eye exam: PRESENT: conjunctiva pink, EOMI, PERRLA. ABSENT: scleral icterus Ear exam: PRESENT: normal external ear exam Mouth exam: PRESENT: moist, tongue midline Neck exam: PRESENT: full ROM. ABSENT: carotid bruit, JVD, lymphadenopathy, thyromegaly Respiratory exam: PRESENT: clear to auscultation melvi Cardiovascular exam: PRESENT: irregular rhythm Pulses: PRESENT: normal carotid pulses GI/Abdominal exam: PRESENT: normal bowel sounds, soft. ABSENT: distended, guarding, mass, organolmegaly, rebound, tenderness Rectal exam: PRESENT: deferred Extremities exam: PRESENT: pedal edema Additional comments: Hyperpigmented changes of venous insufficiency in bilateral lower extremities Neurological exam: PRESENT: alert, awake, oriented to person, oriented to place , oriented to time, oriented to situation, CN II-XII grossly intact. ABSENT: motor sensory deficit Psychiatric exam: PRESENT: appropriate affect. ABSENT: homicidal ideation, suicidal ideation Focused psych exam: ABSENT: catatonic, delusional, euphoric, flight of ideas, internal stimuli, paranoid, pressured speech, psychomotor agitation, restlessness, other Skin exam: PRESENT: dry, intact, warm. ABSENT: cyanosis, rash Results Laboratory Results: 03/31/18 07:13 Triglycerides 52 Cholesterol 171.98 LDL Cholesterol Direct 43 VLDL Cholesterol 10.0 HDL Cholesterol 103 03/31/18 07:13 CK-MB (CK-2) 0.64 Troponin I < 0.012 Impressions: Chest X-Ray 03/30/18 22:39 IMPRESSION: There is no acute pleural-parenchymal process seen in the imaged lung tena. Location of Interpretation: [facility]iology Assessment & Plan - Diagnosis (1) Chest pain Qualifiers: Chest pain type: unspecified Qualified Code(s): R07.9 - Chest pain, unspecified Is this a current diagnosis for this admission?: Yes Plan: Patient will be getting a Cardiolite stress test discussed with Dr. Seals in the meantime will continue to do the cardiac enzymes we will attempt to contact her project lead Dr. Prieto to see if any recordings telephonically on her monitor at that time. (2) Chronic atrial fibrillation Is this a current diagnosis for this admission?: Yes Plan: Keep on her current treatment course and monitor (3) Thrombocytopenia Is this a current diagnosis for this admission?: No Plan: Since platelet count is 88,000 we will monitor she is on her steroids. - Time Time Spent with patient: 15-24 minutes Medications reviewed and adjusted accordingly: Yes Anticipated discharge: Home Within: within 24 hours - Inpatient Certification Based on my medical assessment, after consideration of the patient's comorbidities, presenting symptoms, or acuity I expect that the services needed warrant INPATIENT care.: Yes I certify that my determination is in accordance with my understanding of Medicare's requirements for reasonable and necessary INPATIENT services [42 CFR 412.3e].: Yes Medical Necessity: Need Close Monitoring Due to Risk of Patient Decompensation, Need For Continuous Telemetry Monitoring Post Hospital Care: D/C Scrap Kettle Tender Documentation
[2018-03-31] MEDS: DOCUSATE SODIUM 100 MG CAPSULE PO SCH (10:47)
[2018-03-31] MEDS: PREGABALIN 75 MG CAPSULE PO SCH ×2 (10:48→21:52)
[2018-03-31] MEDS: CARVEDILOL 12.5 MG TABLET PO SCH ×2 (10:48→21:52)
[2018-03-31] MEDS: ESCITALOPRAM OXALATE 10 MG TABLET PO SCH (10:49)
[2018-03-31 14:04] LABS: CREATINE KINASE MB 0.71 ng/mL (<4.55)
[2018-03-31 14:08] LABS: TROPONIN I < 0.012 ng/mL
[2018-03-31] MEDS ORDERED: LORAZEPAM 0.5 MG TABLET PO SCH (22:00)
[2018-04-01 09:11] VITALS: BP 110/54
--- NOTE | 2018-04-01 09:30 | XCELERA REPORT ---
[address] [address] Transthoracic Echocardiogram Report Name: ALESIA GRECO Age: 87 yrs Gender: Female : 1930 Patient Status: Inpatient Patient Location: [address] [place] [address] Study Date: 03/31/2018 02:52 PM Procedure: A complete two-dimensional transthoracic echocardiogram was performed (2D, M-mode, spectral and color flow Doppler). The study was technically difficult with many images being suboptimal in quality. Reason For Study: CP Ordering Physician: SAMSON BURNETT Performed By: Myra Chacon Interpretation Summary The Ejection Fraction estimate is 50-55% Left ventricular systolic function is borderline reduced. The left ventricle is grossly normal size. LV diastolic function could not be adequately assessed. The right ventricle is mildly dilated. The right ventricular systolic function is normal. The left atrium is moderately dilated. There is a trace to mild amount of mitral regurgitation There is mild to moderate mitral stenosis S/P MVRepair There is no aortic valve stenosis There is a mild amount of aortic regurgitation There is a trace or physiologic amount of tricuspid regurgitation Tricuspid regurgitation jet envelope not well defined to measure RV systolic pressure accurately. The inferior vena cava appeared normal and decreased < 50% with respiration (RAP 10-15 mmHg) Minimal pericardial effusion. MMode/2D Measurements & Calculations RVDd: 2.9 cm LVIDd: 6.4 cm FS: 22.2 % Ao root diam: 3.0 cm IVSd: 0.89 cm LVIDs: 5.0 cm EDV(Teich): 208.7 ml Ao root area: 6.9 cm2 LVPWd: 0.83 cm ESV(Teich): 117.3 ml EF(Teich): 43.8 % Doppler Measurements & Calculations MV V2 max: Ao V2 max: AI max lyly: LV V1 max P.7 cm/sec 158.8 cm/sec 389.7 cm/sec 3.7 mmHg MV max PG: Ao max PG: AI max P.7 mmHg LV V1 mean P.2 mmHg 10.1 mmHg AI dec slope: 1.8 mmHg MV V2 mean: Ao V2 mean: LV V1 max: 81.8 cm/sec 101.4 cm/sec 168.5 cm/sec2 95.6 cm/sec MV mean PG: Ao mean PG: AI P1/2t: 677.3 msec LV V1 mean: 3.9 mmHg 4.9 mmHg 61.1 cm/sec MV V2 VTI: 49.7 cm Ao V2 VTI: 28.4 cm LV V1 VTI: 18.5 cm MR max lyly: PA V2 max: PI max lyly: TR max lyly: 464.0 cm/sec 91.3 cm/sec 165.8 cm/sec 270.8 cm/sec MR max PG: PA max PG: PI max P.0 mmHg TR max P.2 mmHg 3.3 mmHg PI dec slope: 29.3 mmHg 124.8 cm/sec2 Left Ventricle The left ventricle is grossly normal size. Left ventricular systolic function is borderline reduced. The Ejection Fraction estimate is 50-55%. LV diastolic function could not be adequately assessed. Regional wall motion abnormalities cannot be excluded due to limited visualization. Right Ventricle The right ventricle is mildly dilated. There is normal right ventricular wall thickness. The right ventricular systolic function is normal. Atria The right atrium is normal in size. The left atrium is moderately dilated. Interarterial septum not well visualized and not well dopplered. Cannot comment on ASD/PFO presence. Mitral Valve There is moderate mitral leaflet calcification. There is mild to moderate mitral stenosis. S/P MVRepair. There is a trace to mild amount of mitral regurgitation. Aortic Valve The aortic valve is not well visualized secondary to technical limitations. There is no aortic valve stenosis. There is a mild amount of aortic regurgitation. Tricuspid Valve The tricuspid valve is not well visualized secondary to technical limitations. There is no tricuspid stenosis. There is a trace or physiologic amount of tricuspid regurgitation. Tricuspid regurgitation jet envelope not well defined to measure RV systolic pressure accurately. Pulmonic Valve The pulmonic valve is not well visualized. Great Vessels The aortic root is not well visualized but is probably normal size. The inferior vena cava appeared normal and decreased < 50% with respiration (RAP 10-15 mmHg). Effusions Minimal pericardial effusion. : SAMSON BURNETT > Samson Burnett
[2018-04-01] MEDS: CARVEDILOL 12.5 MG TABLET PO SCH (11:08)
[2018-04-01] MEDS: PREGABALIN 75 MG CAPSULE PO SCH (11:09)
[2018-04-01] MEDS: ESCITALOPRAM OXALATE 10 MG TABLET PO SCH (11:09)
[2018-04-01] MEDS: DOCUSATE SODIUM 100 MG CAPSULE PO SCH (11:09)
[2018-04-01] MEDS ORDERED: ACETAMINOPHEN 325 MG TABLET PO PRN (11:27)
--- NOTE | 2018-04-01 11:42 | Progress Note ---
Provider Note Provider Note: Patient was seen in the morning. Was noted to be chest pain free. History supplemented by talking to the caregiver and also patient daughter on the phone. She has a history of mitral valve repair at [facility] in [place] and at that time she did not have any significant blockages. Patient being followed by [facility]. Discussed further evaluation with nuclear stress test and a 2D echocardiogram. Patient's daughter and caregiver as well as patient are agreeable with this approach. No medication changes were performed.
--- NOTE | 2018-04-01 11:48 | PDOC CONSULTATION ---
Consultation Consult Date: 03/31/18 Attending physician:: CRICKET ROMEO Consult reason:: Chest pain History of Present Illness Admission Date/PCP: 03/31/18 02:04 CRICKET ROMEO MD Patient complains of: Chest pain History of Present Illness: ALESIA GRECO is a 87 year old female with a past medical history of myelodysplasia, thrombocytopenia, pulmonary hypertension, coronary artery disease, permanent pacemaker, atrial fibrillation without anticoagulation secondary to thrombocytopenia and falls. She presents 1 hour after 5 out of 5, retrosternal, nonradiating, squeezing and sharp chest pain lasting 15 min, resolving without intervention. She denies shortness of breath, palpitations, nausea vomiting or diaphoresis. It occurred while playing cards. Her workup is unremarkable from baseline. She denies recent change in medication, recent stress test, cardiac cath 3-4 years ago at [facility] with Dr. Prieto. She is referred to the hospitalist for admission. This history was confirmed with the patient, patient's daughter who was on the phone and also patient caregiver. Patient has a history of mitral valve repair at [facility] in [place] many years ago. Her most recent cardiac evaluation was a heart catheterization about 3-4 years ago during which she was not noted to have any significant disease. Patient is agreeable to pursue a stress test. A 2D echocardiogram was also ordered. Past Medical History Cardiac Medical History: Reports: Atrial Fibrillation, Congestive Heart Failure , Hyperlipidema, Hypertension Denies: Coronary Artery Disease, Myocardial Infarction Pulmonary Medical History: Denies: Asthma, Bronchitis, Chronic Obstructive Pulmonary Disease (COPD), Pneumonia, Tuberculosis Neurological Medical History: Denies: Seizures Musculoskeltal Medical History: Reports: Arthritis - knees and hips Psychiatric Medical History: Reports: Depression - mild Hematology: Reports: Anemia Past Surgical History Past Surgical History: Reports: Hysterectomy, Orthopedic Surgery - hip surgery, Pacemaker, Valve Replacement - Mitral valve 1994 Social History Information Source: Patient Lives with: Family Smoking Status: Never Smoker Frequency of Alcohol Use: None Hx Recreational Drug Use: No Drugs: None Hx Prescription Drug Abuse: No - Advance Directive Resuscitation Status: Full Code Surrogate healthcare decision maker:: Patient's daughter is the surrogate decision-maker Family History Family History: CAD, Hypertension Parental Family History Reviewed: Yes Children Family History Reviewed: Yes Sibling(s) Family History Reviewed.: Yes Medication/Allergy Home Medications: Albuterol Sulfate [Proventil 0.5% Neb 2.5 mg/0.5 ml Vial.neb] 1 ml NEB [id number] PRN 03/31/18 Atorvastatin Calcium [Lipitor 20 mg Tablet] 20 mg PO QHS 03/31/18 Bimatoprost [Lumigan 0.01% Oph Soln 2.5 ml/Bottle] 1 drop OU QHS 03/31/18 Carbamazepine [Tegretol 200 mg Tablet] 200 mg PO TID 03/31/18 Carvedilol [Coreg 12.5 mg Tablet] 18.75 mg PO BID 03/31/18 Cetirizine HCl [Zyrtec 10 mg Tablet] 10 mg PO DAILY 03/31/18 Cyanocobalamin/Folic AC/Vit B6 [Folgard Rx Tablet] 1 tab PO DAILY 03/31/18 Escitalopram Oxalate [Lexapro 10 mg Tablet] 10 mg PO DAILY 03/31/18 Lorazepam [Ativan 0.5 mg Tablet] 0.5 mg PO HSP PRN 03/31/18 Prednisone [Deltasone 10 mg Tablet] 60 mg PO DAILY 03/31/18 Pregabalin [Lyrica] 150 mg PO Q8 03/31/18 Spironolactone [Aldactone 25 mg Tablet] 50 mg PO DAILY 03/31/18 Torsemide [Demadex 20 mg Tablet] 10 mg PO BID 03/31/18 Escitalopram Oxalate [Lexapro 10 mg Tablet] 10 mg PO DAILY tablet 04/01/18 Lorazepam [Ativan 0.5 mg Tablet] 0.5 mg PO QHS tablet 04/01/18 Nitroglycerin [Nitrostat 0.4 mg (1/150 Gr) Tabs 25/Bottle] 1 tab SL Q5MP PRN bottle 04/01/18 Allergies/Adverse Reactions: amlodipine Allergy (Verified 12/21/17 01:24) lisinopril Allergy (Verified 12/21/17 01:24) metoprolol Allergy (Verified 12/21/17 01:24) Penicillins Allergy (Verified 12/21/17 01:24) ramipril Allergy (Verified 12/21/17 01:24) simvastatin [From Zocor] Allergy (Verified 12/21/17 01:24) vancomycin Allergy (Verified 12/21/17 01:24) enoxaparin [From Lovenox] Adverse Reaction (Verified 12/21/17 01:24) prochlorperazine [From Compazine] Adverse Reaction (Verified 12/21/17 01:24) Review of Systems Review of Systems: Please see history of present illness and past medical history as wall. Constitutional: No fever or chills reported. Head : No recent chronic headaches, recent head injury. Eyes: No recent eye pain, diplopia, redness, discharge, acute visual changes. Ears: No recent chronic ear pain, acute hearing loss, ear discharge. Oral cavity: No recent ulcerations, bleeding, oral cavity discomfort. Neck: No recent acute neck pain reported. Hematologic: No recent easy bruising or bleeding. Lymphatic: No recent lymph node enlargement reported. Cardiovascular system review: See history of present illness. Respiratory system review: No hemoptysis or blood clots in the lungs reported. Shortness of breath on exertion Gastrointestinal system review: Negative for any recent acute hematemesis, melena. Genitourinary system review: No recent acute or chronic hematuria, flank pain, UTI etc. reported. Skin system review: Negative for any recent abnormal bruising, no rash, no pruritus reported. Neurologic: No prior history of strokes, mini strokes, seizure disorder. Psychologic: No history of major psychosis or major depression reported. Musculoskeletal: Minor aches and pains reported. No acute joint swelling reported. Endocrine: No recent polyuria, polydipsia, recent heat or cold intolerance. Physical Exam Vital Signs: Temp Pulse Resp BP Pulse Ox 98.2 F 69 16 111/53 L 95 03/31/18 11:27 03/31/18 14:00 03/31/18 11:27 03/31/18 11:27 03/31/18 11:27 Intake & Output 03/30/18 03/31/18 04/01/18 06:59 06:59 06:59 Intake Total 503 Balance 503 Weight 60.2 kg Exam: GENERAL: well-nourished and in no acute distress. Alert and oriented x3 HEAD: Atraumatic, normocephalic. EYES: Pupils equal round and reactive to light, extraocular movements intact, sclera anicteric, conjunctiva are normal. ENT: TMs normal, nares patent, oropharynx clear without exudates. Moist mucous membranes. No oral ulcerations or bleeding gums noted NECK: supple without lymphadenopathy. Trachea is central. No cervical or axillary lymphadenopathy noted. Carotids are 2+, JVD WNL LUNGS: Respiration seems nonlabored, no significant accessory muscle action noted. Breath sounds clear to auscultation bilaterally and equal noted. No wheezes rales or rhonchi noted. No significant dullness noted on percussion. CHEST: Palpation of the chest wall shows no significant chest wall tenderness. Pacemaker noted left-sided chest. 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 ABDOMEN: Soft, no significant tenderness appreciated, normoactive bowel sounds. No guarding, no rebound. No rigidity noted . No masses appreciated. EXTREMITIES: Pedal pulses are 1-2+, no calf tenderness noted. No clubbing or cyanosis. negative pedal edema noted NEUROLOGICAL: Focused neurological exam showed no significant neurologic deficit. Normal speech, no focal weakness appreciated. PSYCH: Normal mood, normal affect. Judgment and insight within normal limits. SKIN: No significant ecchymosis, skin is noted to be warm. MUSCULOSKELETAL EXAM: No significant acute joint swelling noted. Results Laboratory Results: 03/31/18 07:13 Triglycerides 52 Cholesterol 171.98 LDL Cholesterol Direct 43 VLDL Cholesterol 10.0 HDL Cholesterol 103 03/31/18 03/31/18 07:13 12:40 CK-MB (CK-2) 0.64 0.71 Troponin I < 0.012 < 0.012 EKG Comments: Atrial fibrillation with intermittent ventricular paced beats Impressions: Chest X-Ray 03/30/18 22:39 IMPRESSION: There is no acute pleural-parenchymal process seen in the imaged lung tena. Location of Interpretation: Teleradiology Assessment & Plan - Diagnosis (1) Chest pain Qualifiers: Chest pain type: unspecified Qualified Code(s): R07.9 - Chest pain, unspecified Is this a current diagnosis for this admission?: Yes (2) Anticoagulated on Coumadin Is this a current diagnosis for this admission?: Yes (3) Chronic atrial fibrillation Is this a current diagnosis for this admission?: Yes (4) Congestive heart failure Qualifiers: Heart failure type: diastolic Heart failure chronicity: chronic Qualified Code(s): I50.32 - Chronic diastolic (congestive) heart failure Is this a current diagnosis for this admission?: Yes (5) S/P mitral valve repair Is this a current diagnosis for this admission?: Yes - Notes Notes: Chest pain: There is at least intermediate probability given her age, patient may have underlying CAD. Patient to be evaluated with a nuclear stress test. Risk benefit discussed and patient is agreeable to schedule this. For further risk assessment patient also being scheduled for a 2D echocardiogram. Chronic atrial fibrillation: Recommend rate control and chronic anticoagulation. Coumadin preferred in view of mitral valve stenosis history. Congestive heart failure: Seems compensated on clinical exam. Continue with diuretic therapy and other adjunctive therapy. Status post mitral valve repair: 2D echo will be reviewed. Did not hear any murmur suggestive of significant mitral stenosis or regurgitation. Further plans after 2D echo. - Time Time Spent: 30 to 50 Minutes - CODE STATUS was discussed, patient remains full code. Surrogate decision-maker unchanged. Multiple medical problems were addressed. More than 50% of the time spent coordinating care, discussing management plans with involved caregivers. Management plans discussed with involved personnels. Medical decision making was of moderate to high complexity , patient's has multiple comorbidities. Medications reviewed and adjusted accordingly: Yes
--- NOTE | 2018-04-01 12:13 | DRAGON STRESS TEST REPORT ---
INTRAVENOUS LEXISCAN CARDIOLITE STRESS TEST USING SINGLE PHOTON EMMISION COMPUTERIZED TOMOGRAPHIC. DATE OF PROCEDURE: April 01, 2018, INDICATION : Chest pain CARDIAC RISK FACTORS: Hypertension, dyslipidemia RESTING EKG: Atrial fibrillation with intermittent ventricular paced beats STRESS EKG: No significant ST segment changes noted with LexiScan bolus REASON FOR TERMINATION: Protocol. PROCEDURE REPORT: Baseline heart rate 86 beats per minute with blood pressure of 111/55. Patient had no significant complaints. Patient was bolused with Lexiscan 0.4 mg intravenously followed by saline bolus. Heart rate at 2 minutes post bolus 93 with a blood pressure of 96/55. 3 minutes post bolus heart rate 90 with blood pressure of 101/53. No significant EKG changes were noted. Patient had no significant complaints during the procedure or postprocedure. CONCLUSIONS: Normal EKG and hemodynamic response to IV LexiScan. NUCLEAR DATA: At rest the patient was given 9.41 millicuries of technetium 99 sestamibi injected intravenously. As per protocol rest gated SPECT images were obtained. On day of stress test, the patient was given intravenous LexiScan at a dose of 0.4 mg in 5 mL intravenously, followed by flush with normal saline. Subsequently the stress dose of 29.1 millicuries of technetium 99 sestamibi was injected intravenously. As per protocol stress gated images were obtained. NUCLEAR INTERPRETATION: Both raw and processed data were used for interpretation. Visual, qualitative, computer-generated quantitative data was used. There was good myocardial uptake of technetium compound. Motion artifact and soft tissue attenuations were noted. Increased visceral uptake was noted. No definitive areas of transient perfusion defect noted, No definitive areas of fixed perfusion defect or scars noted. EKG gated imaging showed LV EF at 38 %, rest and stress gated EF similar visually, mild apical and septal mild dyskinesia possibly related to ventricular paced beats noted. T. I D. ratio was 1.03. Lung heart ratio noted to be within normal limits 0.33. No significant extracardiac and abnormal radiotracer activities were noted. RV free wall uptake was noted to be WNL. IMPRESSION: Also refer to comments under nuclear interpretation. Also test results needs to be interpreted in the context of pretest probability. 1. No definitive areas of transient perfusion defect noted. 2. There is no definitive scintigraphic evidence of myocardial infarction/scar. 3. EKG gated imaging shows left ventricular ejection fraction of approx. 38 %. 4. Clinical correlation requested as worse disease and or balanced ischemia could be missed. In approximately 10% of the cases Lexiscan may not cause adequate vasodilatory stress. RECOMMENDATIONS: Aggressive risk factor modification and medical management. Further evaluation may be needed if continued symptoms or other high risk indicators are noted on clinical evaluation. Close cardiology follow-up is also recommended. Clinical correlation with echocardiogram derived ejection fraction. Inability to exercise by itself can lead to increased cardiovascular event risks. Consider cardiology consultation and or follow-up if clinically indicated. I am available for cardiology evaluation and consultation if requested by the leases and land supervisor, unless patient already has a hydrography teacher. Dr. Ralph Seals. MRCP Board certified in cardiology and sleep medicine. Board certified in nuclear cardiology, adult echocardiography. [place]
[2018-04-01] MEDS ORDERED: REGADENOSON INJ 0.4 MG/5 ML DISP.SYRIN IV ONE (15:13)
[2018-04-01] MEDS ORDERED: DOCUSATE SODIUM 100 MG CAPSULE PO SCH (18:00)
--- NOTE | 2018-04-01 18:55 | PDOC PROGRESS REPORT ---
Subjective Progress Note for:: 04/01/18 Subjective:: Patient seems to be doing better with gradual improvement. Pt is denying any chest arm or neck discomfort. Patient denying any PND, orthopnea. Patient denied any sustained palpitations, dizziness, syncope, near syncope. Patient denying any fever chills. Patient denying any other significant discomfort. Patient is maintaining chronic atrial fibrillation with intermittent ventricular paced beats Review of systems: Rest review of systems negative. Medications: Medications have been reviewed. Reason For Visit: CHEST PAIN THROMBOCYTOPENIA, AFIB Physical Exam Vital Signs: Temp Pulse Resp BP Pulse Ox 98.6 F 79 16 110/54 L 96 04/01/18 13:51 04/01/18 13:51 04/01/18 13:51 04/01/18 13:51 04/01/18 13:51 Intake & Output 03/31/18 04/01/18 04/02/18 06:59 06:59 06:59 Intake Total 1083 Balance 1083 Weight 60.2 kg 60.2 kg Exam: GENERAL: well-nourished and in no acute distress. Alert and oriented x3 HEAD: Atraumatic, normocephalic. EYES: Pupils equal round and reactive to light, extraocular movements intact, sclera anicteric, conjunctiva are normal. ENT: TMs normal, nares patent, oropharynx clear without exudates. Moist mucous membranes. No oral ulcerations or bleeding gums noted NECK: supple without lymphadenopathy. Trachea is central. No cervical or axillary lymphadenopathy noted. Carotids are 2+, JVD WNL LUNGS: Respiration seems nonlabored, no significant accessory muscle action noted. Breath sounds clear to auscultation bilaterally and equal noted. No wheezes rales or rhonchi noted. No significant dullness noted on percussion. CHEST: Palpation of the chest wall shows no significant chest wall tenderness. Pacemaker noted on the left side. 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 ABDOMEN: Soft, no significant tenderness appreciated, normoactive bowel sounds. No guarding, no rebound. No rigidity noted . No masses appreciated. EXTREMITIES: Pedal pulses are 1-2+, no calf tenderness noted. No clubbing or cyanosis. negative pedal edema noted NEUROLOGICAL: Focused neurological exam showed no significant neurologic deficit. Normal speech, no focal weakness appreciated. PSYCH: Normal mood, normal affect. Judgment and insight within normal limits. SKIN: No significant ecchymosis, skin is noted to be warm. MUSCULOSKELETAL EXAM: No significant acute joint swelling noted. Results Laboratory Results: 03/31/18 03/31/18 07:13 12:40 CK-MB (CK-2) 0.64 0.71 Troponin I < 0.012 < 0.012 EKG Comments: Atrial fibrillation with intermittent ventricular paced beats Impressions: Chest X-Ray 03/30/18 22:39 IMPRESSION: There is no acute pleural-parenchymal process seen in the imaged lung tena. Location of Interpretation: Teleradiology Assessment & Plan - Diagnosis (1) Chest pain Qualifiers: Chest pain type: unspecified Qualified Code(s): R07.9 - Chest pain, unspecified Is this a current diagnosis for this admission?: Yes (2) Anticoagulated on Coumadin Is this a current diagnosis for this admission?: Yes (3) Chronic atrial fibrillation Is this a current diagnosis for this admission?: Yes (4) Congestive heart failure Qualifiers: Heart failure type: diastolic Heart failure chronicity: chronic Qualified Code(s): I50.32 - Chronic diastolic (congestive) heart failure Is this a current diagnosis for this admission?: Yes (5) S/P mitral valve repair Is this a current diagnosis for this admission?: Yes - Notes Notes: Chest pain: There is at least intermediate probability given her age, patient may have underlying CAD. This was evaluated with a nuclear stress test. This did not show any definitive evidence of ischemia with pharmacologic stress agent Lexiscan. Occasionally single-vessel disease could be missed. These results were discussed. EKG gated imaging shows depressed LVEF at 38% possibly related to paced ventricular beats. 2D echo shows better EF. Chronic atrial fibrillation: Recommend rate control and chronic anticoagulation. Coumadin preferred in view of mitral valve stenosis history. Continue chronic anticoagulation with Coumadin. Congestive heart failure: Seems compensated on clinical exam. Continue with diuretic therapy and other adjunctive therapy. Clinically seems compensated today. 2D echo results were reviewed. Status post mitral valve repair: 2D echo shows mild to moderate mitral stenosis and trace mitral regurgitation. Mild aortic incompetence was also noted. Patient should be considered for endocarditis prophylaxis. - Time Time with patient: Greater than 35 minutes - Patient was seen multiple times. In the morning nuclear stress test procedure, risk benefits were discussed and explained. In the afternoon nuclear stress test results were discussed with the patient and primary counselor. Feel that patient is stable for discharge from cardiac standpoint with close cardiology follow-up with her primary care freelance writer and primary care physician. Patient to report any further symptoms. Medications reviewed and adjusted accordingly: Yes
== END 2018-04-01 14:12 | disposition home or self-care (01) ==
LOC: ER 22:38 → EH 03-31 02:04 → 5 03-31 02:54
PROVIDERS: ADMIT Internal Medicine; ATTEND Internal Medicine
DX: R07.9 Chest pain, unspecified (principal); I48.2 Chronic atrial fibrillation; I25.10 Atherosclerotic heart disease of native coronary artery without angina pectoris; R06.02 Shortness of breath; I11.0 Hypertensive heart disease with heart failure; I50.32 Chronic diastolic (congestive) heart failure; E78.5 Hyperlipidemia, unspecified; K59.00 Constipation, unspecified; I87.2 Venous insufficiency (chronic) (peripheral); D69.6 Thrombocytopenia, unspecified; I08.0 Rheumatic disorders of both mitral and aortic valves; Z95.0 Presence of cardiac pacemaker; Z91.81 History of falling; Z95.2 Presence of prosthetic heart valve; Z82.49 Family history of ischemic heart disease and other diseases of the circulatory system; Z79.899 Other long term (current) drug therapy; Z23 Encounter for immunization
CPT/HCPCS: 93005; 99285; 36415 ×2; 82553 ×2; 82550; 85025; 80053; 84484 ×2; 80061; 93306; 93017; 71045; 78452; 90686; 93010; G0378 ×3; G0008; A9500; J2785; A9270 ×10; J3490; Q9969; 90471

== ENCOUNTER → 2018-06-08 | Outpatient (CLI) | payer MEDICARE, BC ==
[2018-06-08 14:43] LABS: APPEARANCE,URINE CLEAR; BILIRUBIN,URINE NEGATIVE (NEGATIVE); COLOR,URINE STRAW; GLUCOSE, URINE NEGATIVE (NEGATIVE); KETONES,URINE NEGATIVE (NEGATIVE); LEUKOCYTE ESTERASE,URINE NEGATIVE (NEGATIVE); NITRITE,URINE NEGATIVE (NEGATIVE); PROTEIN,URINE NEGATIVE (NEGATIVE); URINE SPECIFIC GRAVITY 1.005; UROBILINOGEN,URINE NEGATIVE mg/dL (<2.0)
== END ==
LOC: OD 13:11
PROVIDERS: ATTEND Internal Medicine
DX: N39.0 Urinary tract infection, site not specified (principal)
CPT/HCPCS: 81001; 87086

== ENCOUNTER → 2018-08-18 | Outpatient (CLI) | payer MEDICARE, BC ==
[2018-08-18 10:29] LABS: ABSOLUTE EOSINOPHILS # (AUTO) 0.2 10^3/uL (0.0-0.6); ABSOLUTE MONOCYTES (AUTO) 0.6 10^3/uL (0.1-1.4); ABSOLUTE NEUT (AUTO) 2.4 10^3/uL (1.7-8.2); BASOPHILS % (AUTO) 0.6 % (0-2); EOSINOPHILS % (AUTO) 5.5 % (0-6); HEMATOCRIT 32.1 % (36.0-47.0); HEMOGLOBIN 11.1 g/dL (12.0-15.5); LYMPHOCYTES % (AUTO) 23.4 % (13-45); MEAN CORPUSCULAR HGB CONC 34.7 g/dL (32.0-36.0); MEAN CORPUSCULAR VOLUME 98 fl (80-97); MONOCYTES % (AUTO) 15.2 % (3-13); RED BLOOD COUNT 3.28 10^6/uL (3.72-5.28); RED CELL DISTRIBUTION WIDTH 13.8 % (11.5-14.0); SEGMENTED NEUTROPHILS % (AUTO) 55.3 % (42-78); TOTAL CELLS COUNTED % (AUTO) 100 %; WHITE BLOOD COUNT 4.3 10^3/uL (4.0-10.5)
[2018-08-18 10:46] LABS: ANION GAP 8 (5-19); BLOOD UREA NITROGEN 26 mg/dL (7-20); CALCIUM 9.4 mg/dL (8.4-10.2); CARBON DIOXIDE 30 mmol/L (22-30); CHLORIDE 101 mmol/L (98-107); GLUCOSE 90 mg/dL (75-110); POTASSIUM 4.2 mmol/L (3.6-5.0); SODIUM 139.1 mmol/L (137-145)
[2018-08-18 11:05] LABS: PLATELET COUNT 86 10^3/uL (150-450)
== END ==
LOC: LAB 10:10
PROVIDERS: ATTEND Internal Medicine
DX: N18.9 Chronic kidney disease, unspecified (principal); I50.9 Heart failure, unspecified
CPT/HCPCS: 36415; 80048; 83735; 85025

== ENCOUNTER 2018-09-19 12:18 | Inpatient (IN) | payer MEDICARE, BC ==
--- NOTE | 2018-09-19 13:01 | ER Document Report ---
ED Medical Screen (RME) - General Chief Complaint: Nausea Stated Complaint: NAUSEA/VOMITING Time Seen by Provider: 09/19/18 12:48 Primary Care Provider: LASHA MANLEY PA-C [Primary Care Provider] - Follow up as needed Mode of Arrival: Wheelchair Information source: Patient Notes: Patient is an 87-year-old female who presents to the emergency department with complaints of nausea, vomiting and diarrhea that is been ongoing for 3 days. Patient was sent from her primary care providers office, she had labs drawn in the outpatient lab here just a few minutes prior to checking into the emergency department. These labs are still pending. Patient reports significant low abdominal pain that radiated radiates across the entire low abdomen. She denies any fever. Family members and caregiver are present. They state that she has had a lack of appetite and has been weak and fatigued over the last few days. Exam: Tenderness to palpation to mid low abdomen, exam limited due to patient's position in wheelchair. I have greeted and performed a rapid initial assessment of this patient. A comprehensive ED assessment and evaluation of the patient, analysis of test results and completion of the medical decision making process will be conducted by additional ED providers. Dictation of this chart was performed using voice recognition software; therefore, there may be some unintended grammatical errors. TRAVEL OUTSIDE OF THE [place] IN LAST 30 DAYS: No - Related Data Allergies/Adverse Reactions: amlodipine Allergy (Verified 09/19/18 12:33) lisinopril Allergy (Verified 09/19/18 12:33) metoprolol Allergy (Verified 09/19/18 12:33) Penicillins Allergy (Verified 09/19/18 12:33) ramipril Allergy (Verified 09/19/18 12:33) simvastatin [From Zocor] Allergy (Verified 09/19/18 12:33) vancomycin Allergy (Verified 09/19/18 12:33) enoxaparin [From Lovenox] Adverse Reaction (Verified 09/19/18 12:33) prochlorperazine [From Compazine] Adverse Reaction (Verified 09/19/18 12:33) Past Medical History - Social History Chew tobacco use (# tins/day): No Frequency of alcohol use: None Drug Abuse: None - Past Medical History Cardiac Medical History: Reports: Hx Atrial Fibrillation, Hx Congestive Heart Failure, Hx Hypercholesterolemia, Hx Hypertension Denies: Hx Coronary Artery Disease, Hx Heart Attack Pulmonary Medical History: Denies: Hx Asthma, Hx Bronchitis, Hx COPD, Hx Pneumonia, Hx Tuberculosis Neurological Medical History: Denies: Hx Cerebrovascular Accident, Hx Seizures Renal/ Medical History: Denies: Hx Peritoneal Dialysis Musculoskeltal Medical History: Reports Hx Arthritis - knees and hips Psychiatric Medical History: Reports: Hx Depression - mild Past Surgical History: Reports: Hx Cardiac Surgery - pacemaker, Hx Hysterectomy, Hx Orthopedic Surgery - hip surgery, Hx Pacemaker, Hx Valve Replacement - Mitral valve 1994 - Immunizations Hx Diphtheria, Pertussis, Tetanus Vaccination: Yes History of Influenza Vaccine for 03/2017 - 08/2017 Season: Yes Influenza Administration Date for 03/2017 - 08/2017 Season: 02/19/17 Physical Exam - Vital signs Vitals: Temp Pulse Resp BP Pulse Ox 98.5 F 93 18 119/73 95 09/19/18 12:27 09/19/18 12:27 09/19/18 12:27 09/19/18 12:27 09/19/18 12:27 Course - Vital Signs Vital signs: Temp Pulse Resp BP Pulse Ox 98.5 F 93 18 119/73 95 09/19/18 12:27 09/19/18 12:27 09/19/18 12:27 09/19/18 12:27 09/19/18 12:27 Doctor's Discharge - Discharge Referrals: LASHA MANLEY PA-C [Primary Care Provider] - Follow up as needed
[2018-09-19 13:17] LABS: ALANINE AMINOTRANSFERASE 36 U/L (9-52); ALBUMIN 4.2 g/dL (3.5-5.0); ALKALINE PHOSPHATASE 113 U/L (38-126); ASPARTATE AMINO TRANSFERASE 36 U/L (14-36); BILIRUBIN,DIRECT 0.5 mg/dL (0.0-0.4); BILIRUBIN,TOTAL 0.8 mg/dL (0.2-1.3); LIPASE 184.6 U/L (23-300)
[2018-09-19 13:17] LABS: APPEARANCE,URINE CLEAR; BILIRUBIN,URINE NEGATIVE (NEGATIVE); COLOR,URINE STRAW; GLUCOSE, URINE NEGATIVE (NEGATIVE); KETONES,URINE NEGATIVE (NEGATIVE); LEUKOCYTE ESTERASE,URINE NEGATIVE (NEGATIVE); NITRITE,URINE NEGATIVE (NEGATIVE); PROTEIN,URINE NEGATIVE (NEGATIVE); URINE SPECIFIC GRAVITY 1.006; UROBILINOGEN,URINE NEGATIVE mg/dL (<2.0)
[2018-09-19] MEDS ORDERED: ONDANSETRON HCL INJ/PF 4 MG/2 ML SDV IV ONE ×2 (16:26→20:10)
--- NOTE | 2018-09-19 16:55 | ER Document Report ---
ED GI/ - General Chief Complaint: Nausea Stated Complaint: NAUSEA/VOMITING Time Seen by Provider: 09/19/18 12:48 Primary Care Provider: LASHA MANLEY PA-C [Primary Care Provider] - Follow up as needed Mode of Arrival: Wheelchair Information source: Patient, Friend - Home nurse Notes: Patient presents complaining of a 3-day history of abdominal pain with nausea vomiting and diarrhea. Patient states that the vomiting and diarrhea stopped yesterday although the nausea persists. Patient does still complain of lower pelvic tenderness as well. TRAVEL OUTSIDE OF THE [place] IN LAST 30 DAYS: No - HPI Patient complains to provider of: Abdominal pain, Diarrhea, Vomiting Timing/Duration: Persistent - 3 days Quality of pain: Achy Pain Level: 3 Location: Pelvis Vaginal bleeding (Compared to normal period): None Associated symptoms: Diarrhea, Nausea, Vomiting. denies: Constipation, Dysuria, Fever, Urinary hesitancy, Urinary frequency, Urinary retention Exacerbated by: Denies Relieved by: Denies Similar symptoms previously: No Recently seen / treated by doctor: No - Related Data Allergies/Adverse Reactions: amlodipine Allergy (Verified 09/19/18 12:33) lisinopril Allergy (Verified 09/19/18 12:33) metoprolol Allergy (Verified 09/19/18 12:33) Penicillins Allergy (Verified 09/19/18 12:33) ramipril Allergy (Verified 09/19/18 12:33) simvastatin [From Zocor] Allergy (Verified 09/19/18 12:33) vancomycin Allergy (Verified 09/19/18 12:33) enoxaparin [From Lovenox] Adverse Reaction (Verified 09/19/18 12:33) prochlorperazine [From Compazine] Adverse Reaction (Verified 09/19/18 12:33) Past Medical History - General Information source: Patient - Social History Smoking Status: Never Smoker Chew tobacco use (# tins/day): No Frequency of alcohol use: None Drug Abuse: None Lives with: Family Family History: CAD, Hypertension Patient has suicidal ideation: No Patient has homicidal ideation: No - Past Medical History Cardiac Medical History: Reports: Hx Atrial Fibrillation, Hx Congestive Heart Failure, Hx Hypercholesterolemia, Hx Hypertension Denies: Hx Coronary Artery Disease, Hx Heart Attack Neurological Medical History: Denies: Hx Cerebrovascular Accident, Hx Seizures Renal/ Medical History: Denies: Hx Peritoneal Dialysis Musculoskeletal Medical History: Reports Hx Arthritis - knees and hips Psychiatric Medical History: Reports: Hx Depression - mild Past Surgical History: Reports: Hx Cardiac Surgery - pacemaker, Hx Hysterectomy, Hx Orthopedic Surgery - hip surgery, Hx Pacemaker, Hx Valve Replacement - Mitral valve 1994 - Immunizations Hx Diphtheria, Pertussis, Tetanus Vaccination: Yes Hx Pneumococcal Vaccination: 06/21/09 Review of Systems - Review of Systems Constitutional: No symptoms reported. denies: Fever, Recent illness EENT: No symptoms reported Cardiovascular: No symptoms reported. denies: Chest pain Respiratory: No symptoms reported. denies: Cough, Short of breath Gastrointestinal: Abdominal pain, Diarrhea, Nausea, Vomiting Genitourinary: No symptoms reported. denies: Dysuria Female Genitourinary: No symptoms reported Musculoskeletal: No symptoms reported. denies: Back pain Skin: No symptoms reported Hematologic/Lymphatic: No symptoms reported Neurological/Psychological: No symptoms reported Physical Exam - Vital signs Vitals: Temp Pulse Resp BP Pulse Ox 98.5 F 93 18 119/73 95 09/19/18 12:27 09/19/18 12:27 09/19/18 12:27 09/19/18 12:27 09/19/18 12:27 - General General appearance: Appears well, Alert In distress: None - HEENT Head: Normocephalic, Atraumatic Eyes: Normal Conjunctiva: Normal Nasal: Normal Mouth/Lips: Normal Mucous membranes: Normal Neck: Normal, Supple. No: Lymphadenopathy - Respiratory Respiratory status: No respiratory distress Chest status: Nontender Breath sounds: Normal. No: Rales, Rhonchi, Stridor, Wheezing Chest palpation: Normal - Cardiovascular Rhythm: Regular Heart sounds: S1 appreciated, S2 appreciated - Abdominal Inspection: Normal Distension: No distension Bowel sounds: Normal Tenderness: Tender - Suprapubic Organomegaly: No organomegaly - Back Back: Normal, Nontender. No: CVA tenderness - Extremities General upper extremity: Normal inspection, Normal ROM General lower extremity: Normal inspection, Normal ROM. No: Edema - Neurological Neuro grossly intact: Yes Cognition: Normal [place] Coma Scale Eye Opening: Spontaneous [place] Coma Scale Verbal: Oriented [place] Coma Scale Motor: Obeys Commands [place] Coma Scale Total: 15 - Psychological Associated symptoms: Normal affect, Normal mood - Skin Skin Temperature: Warm Skin Moisture: Dry Skin Color: Normal Course - Re-evaluation Re-evalutation: 09/19/18 20:56 Patient persist with lower pelvic pain and right lower quadrant tenderness. Patient does still have her appendix. Call placed to general surgery who agrees to come and evaluate patient. Family is concerned that patient has had persistent abdominal pain with nausea and is not comfortable taking patient home. Family is requesting consultation with patient's primary doctor Rio Almeida MD. Call placed to Rio Almeida MD for consultation. Bedside report and handoff given to Rachel BARROW. 09/19/18 21:06 Dr. Rae to room to examine patient. Spoke with Rio Almeida MD regarding family's concern about her persistent nausea and pelvic pain symptoms. Rio Almeida MD does agree to accept patient to [facility] floor at this time. - Vital Signs Vital signs: Temp Pulse Resp BP Pulse Ox 97.6 F 93 17 133/67 H 94 09/19/18 20:08 09/19/18 12:27 09/19/18 20:09 09/19/18 20:09 09/19/18 20:09 - Laboratory Laboratory results interpreted by me: 09/19/18 09/19/18 12:05 12:11 Direct Bilirubin 0.5 H Urine Blood SMALL H 09/19/18 21:05 Labs- Entire Visit 09/19/18 09/19/18 09/19/18 12:05 12:11 17:11 Total Bilirubin 0.8 Direct Bilirubin 0.5 H Neonat Total Bilirubin Not Reportable Neonat Direct Bilirubin Not Reportable Neonat Indirect Bili Not Reportable AST 36 ALT 36 Alkaline Phosphatase 113 Creatine Kinase 36 CK-MB (CK-2) Troponin I Total Protein 7.0 Albumin 4.2 Lipase 184.6 Urine Color STRAW Urine Appearance CLEAR Urine pH 7.0 Ur Specific [place] 1.006 Urine Protein NEGATIVE Urine Glucose (UA) NEGATIVE Urine Ketones NEGATIVE Urine Blood SMALL H Urine Nitrite NEGATIVE Urine Bilirubin NEGATIVE Urine Urobilinogen NEGATIVE Ur Leukocyte Esterase NEGATIVE Urine RBC (Auto) 2 Squamous Epi Cells Auto <1 Urine Mucus (Auto) RARE Urine Ascorbic Acid NEGATIVE 09/19/18 17:11 Total Bilirubin Direct Bilirubin Neonat Total Bilirubin Neonat Direct Bilirubin Neonat Indirect Bili AST ALT Alkaline Phosphatase Creatine Kinase CK-MB (CK-2) 0.60 Troponin I < 0.012 Total Protein Albumin Lipase Urine Color Urine Appearance Urine pH Ur Specific [place] Urine Protein Urine Glucose (UA) Urine Ketones Urine Blood Urine Nitrite Urine Bilirubin Urine Urobilinogen Ur Leukocyte Esterase Urine RBC (Auto) Squamous Epi Cells Auto Urine Mucus (Auto) Urine Ascorbic Acid - Diagnostic Test Radiology reviewed: Reports reviewed Discharge - Discharge Clinical Impression: Nausea Abdominal pain Qualifiers: Abdominal location: lower abdomen, unspecified Qualified Code(s): R10.30 - Lower abdominal pain, unspecified Condition: Stable Disposition: ADMITTED OBSERVATION Admitting Provider: Elle Unit Admitted: IMCU Referrals: LASHA MANLEY PA-C [Primary Care Provider] - Follow up as needed
--- NOTE | 2018-09-19 17:30 | RADIOLOGY REPORT (SQ) ---
EXAM DESCRIPTION: CHEST SINGLE VIEW COMPLETED DATE/TIME: 09/19/2018 5:19 pm REASON FOR STUDY: weak, palpitations COMPARISON: 07/01/2016 EXAM PARAMETERS: NUMBER OF VIEWS: One view. TECHNIQUE: Single frontal radiographic view of the chest acquired. RADIATION DOSE: NA LIMITATIONS: None. FINDINGS: LUNGS AND PLEURA: No opacities, masses or pneumothorax. No pleural effusion. MEDIASTINUM AND HILAR STRUCTURES: No masses. Contour normal. HEART AND VASCULAR STRUCTURES: Heart size normal. Ectatic aorta. BONES: No acute findings. HARDWARE: Cardiac unchanged. OTHER: No other significant finding. IMPRESSION: No acute interval change. TECHNICAL DOCUMENTATION: JOB ID: [id number] [employer]- All Rights Reserved Reading location - IP/workstation name: [email or web address]
[2018-09-19 18:29] LABS: TROPONIN I < 0.012 ng/mL
--- NOTE | 2018-09-19 20:15 | RADIOLOGY REPORT (SQ) ---
EXAM DESCRIPTION: CT ABD/PELVIS WITH IV ORAL COMPLETED DATE/TIME: 09/19/2018 7:34 pm REASON FOR STUDY: lower abd pain COMPARISON: 2014 TECHNIQUE: CT scan of the abdomen and pelvis performed with intravenous and oral contrast using kristian alena scanning technique with dynamic intravenous contrast injection. Images reviewed with lung, soft t issue, and bone windows. Reconstructed coronal and sagittal MPR images reviewed. Delayed images for e valuation of the urinary system also acquired. All images stored on PACS. All CT scanners at this facility use dose modulation, iterative reconstruction, and/or weight based d osing when appropriate to reduce radiation dose to as low as reasonably achievable (ALARA). [facility]: Dose Right [facility]: CareDose [facility]: Dose Right [facility]: Teradose 4D [facility]: SurePeak CONTRAST TYPE AND DOSE: contrast/concentration: Isovue 350.00 mg/ml; Total Contrast Delivered: 69.0 ml; Total Saline Delivered: 65.0 ml RENAL FUNCTION: GFR > 60. RADIATION DOSE: CT Rad equipment meets quality standard of care and radiation dose reduction techniq ues were employed. CTDIvol: 7.6 - 9.6 mGy. DLP: 773 mGy-cm. . LIMITATIONS: None. FINDINGS: LOWER CHEST: No significant findings. No nodules or infiltrates. LIVER: Normal size. No masses. No dilated ducts. SPLEEN: Normal size. No focal lesions. PANCREAS: No masses. No significant calcifications. No adjacent inflammation or peripancreatic fluid collections. Pancreatic duct not dilated. GALLBLADDER: No identified stones by CT criteria. No inflammatory changes to suggest cholecystitis. ADRENAL GLANDS: No significant masses or asymmetry. RIGHT KIDNEY AND URETER: No solid masses. No significant calcifications. No hydronephrosis or hyd roureter. LEFT KIDNEY AND URETER: No solid masses. No significant calcifications. No hydronephrosis or hydr oureter. AORTA AND VESSELS: No aneurysm. No dissection. Renal arteries, SMA, celiac without stenosis. RETROPERITONEUM: No retroperitoneal adenopathy, hemorrhage or masses. BOWEL AND PERITONEAL CAVITY: No obstruction. No visualized masses. No free fluid. No inflammatory ch anges or thickening of bowel wall. APPENDIX: Not visualized. PELVIS: Obscured because of beam hardening artifact from metal in the hips. Stable unchanged left ov [place] cyst. ABDOMINAL WALL: No masses. No hernias. BONES: No significant or acute findings. OTHER: No other significant finding. IMPRESSION: NO SIGNIFICANT OR ACUTE FINDINGS IN THE ABDOMEN OR PELVIS. Stable appearance. TECHNICAL DOCUMENTATION: JOB ID: [id number] Quality ID # [id number]: Final reports with documentation of one or more dose reduction techniques (e.g., Au tomated exposure control, adjustment of the mA and/or kV according to patient size, use of iterative reconstruction technique) 2010 [employer]- All Rights Reserved Reading location - IP/workstation name: [email or web address]
[2018-09-19] MEDS ORDERED: DICYCLOMINE HCL 10 MG CAPSULE PO ONE (20:50)
[2018-09-19] MEDS ORDERED: ONDANSETRON HCL INJ/PF 4 MG/2 ML SDV IV PRN (21:52)
[2018-09-19] MEDS ORDERED: DEXTROSE 50%-WATER 25 GM/50 ML DISP.SYRIN IV PRN ×2 (21:52)
[2018-09-19] MEDS ORDERED: GLUCAGON,HUMAN RECOMB 1 MG INJ SUBCUT PRN (21:52)
[2018-09-19] MEDS ORDERED: DEXTROSE 40% GEL 15 GM TUBE PO PRN ×2 (21:52)
[2018-09-19] MEDS ORDERED: ACETAMINOPHEN 325 MG TABLET PO PRN (21:52)
[2018-09-19] MEDS ORDERED: [UNRECOGNIZED DRUG - OTHER] NEB PRN (21:57)
[2018-09-19] MEDS ORDERED: NITROGLYCERIN 0.4 MG/TAB 25 TAB/BOTTLE SL PRN (21:57)
[2018-09-19] MEDS ORDERED: ALBUTEROL SULFATE NEB PRN (21:57)
--- NOTE | 2018-09-19 22:06 | PDOC H&P ---
History of Present Illness Admission Date/PCP: 09/19/18 21:08 LASHA MANLEY PA-C Patient complains of: Abdominal pain, diarrhea, intractable nausea History of Present Illness: ALESIA GRECO is a 87 year old female Past Medical History Cardiac Medical History: Reports: Atrial Fibrillation, Congestive Heart Failure, Hyperlipidema, Hypertension Denies: Coronary Artery Disease, Myocardial Infarction Pulmonary Medical History: Denies: Asthma, Bronchitis, Chronic Obstructive Pulmonary Disease (COPD), Pneumonia, Tuberculosis Neurological Medical History: Denies: Seizures Musculoskeltal Medical History: Reports: Arthritis - knees and hips Psychiatric Medical History: Reports: Depression - mild Hematology: Reports: Anemia Past Surgical History Past Surgical History: Reports: Hysterectomy, Orthopedic Surgery - hip surgery, Pacemaker, Valve Replacement - Mitral valve 1994 Social History Information Source: Patient Lives with: Family Smoking Status: Never Smoker Frequency of Alcohol Use: None Hx Recreational Drug Use: No Drugs: None Hx Prescription Drug Abuse: No - Advance Directive Resuscitation Status: Do Not Resuscitate Family History Family History: CAD, Hypertension Parental Family History Reviewed: Yes Children Family History Reviewed: Yes Sibling(s) Family History Reviewed.: Yes Medication/Allergy Home Medications: Albuterol Sulfate [Proventil 0.5% Neb 2.5 mg/0.5 ml Vial.neb] 1 ml NEB RTQ4HP PRN 03/31/18 Atorvastatin Calcium [Lipitor 20 mg Tablet] 20 mg PO DAILY 03/31/18 Bimatoprost [Lumigan 0.01% Oph Soln 2.5 ml/Bottle] 1 drop OU BID 03/31/18 Carbamazepine [Tegretol 200 mg Tablet] 100 mg PO DAILY 03/31/18 Carvedilol [Coreg 12.5 mg Tablet] 12.5 mg PO BID 03/31/18 Cetirizine HCl [Zyrtec 10 mg Tablet] 10 mg PO DAILY 03/31/18 Cyanocobalamin/Folic AC/Vit B6 [Folgard Rx Tablet] 1 tab PO DAILY 03/31/18 Spironolactone [Aldactone 25 mg Tablet] 25 mg PO DAILY 03/31/18 Torsemide [Demadex 20 mg Tablet] 20 mg PO DAILY 03/31/18 Escitalopram Oxalate [Lexapro 10 mg Tablet] 10 mg PO DAILY tablet 04/01/18 Lorazepam [Ativan 0.5 mg Tablet] 0.5 mg PO QHS tablet 04/01/18 Nitroglycerin [Nitrostat 0.4 mg (1/150 Gr) Tabs 25/Bottle] 1 tab SL Q5MP PRN bottle 04/01/18 Betaxolol HCl [Betoptic S] 1 - 2 drop OP QHS 09/19/18 Pregabalin [Lyrica 75 mg Capsule] 75 mg PO DAILY 09/19/18 Allergies/Adverse Reactions: amlodipine Allergy (Verified 09/19/18 12:33) lisinopril Allergy (Verified 09/19/18 12:33) metoprolol Allergy (Verified 09/19/18 12:33) Penicillins Allergy (Verified 09/19/18 12:33) ramipril Allergy (Verified 09/19/18 12:33) simvastatin [From Zocor] Allergy (Verified 09/19/18 12:33) vancomycin Allergy (Verified 09/19/18 12:33) enoxaparin [From Lovenox] Adverse Reaction (Verified 09/19/18 12:33) prochlorperazine [From Compazine] Adverse Reaction (Verified 09/19/18 12:33) Review of Systems All systems: as per PMH Physical Exam Vital Signs: Temp Pulse Resp BP Pulse Ox 97.6 F 93 21 H 109/79 95 09/19/18 20:08 09/19/18 12:27 09/19/18 21:01 09/19/18 21:01 09/19/18 21:01 Intake & Output 09/18/18 09/19/18 09/20/18 06:59 06:59 06:59 Weight 60.4 kg General appearance: PRESENT: mild distress Head exam: PRESENT: atraumatic Eye exam: PRESENT: conjunctival injection Mouth exam: PRESENT: dry mucosa Neck exam: PRESENT: carotid bruit. ABSENT: JVD Respiratory exam: PRESENT: clear to auscultation melvi Cardiovascular exam: PRESENT: irregular rhythm, +S1, +S2 GI/Abdominal exam: PRESENT: soft, tenderness. ABSENT: guarding, rebound Extremities exam: PRESENT: tenderness Musculoskeletal exam: PRESENT: tenderness Neurological exam: PRESENT: alert, awake, oriented to person, oriented to place, oriented to time Psychiatric exam: PRESENT: anxious Results Laboratory Results: 09/19/18 09/19/18 12:05 12:11 Total Bilirubin 0.8 AST 36 ALT 36 Alkaline Phosphatase 113 Total Protein 7.0 Albumin 4.2 Lipase 184.6 Urine Color STRAW Urine Appearance CLEAR Urine pH 7.0 Ur Specific [place] 1.006 Urine Protein NEGATIVE Urine Glucose (UA) NEGATIVE Urine Ketones NEGATIVE Urine Blood SMALL H Urine Nitrite NEGATIVE Ur Leukocyte Esterase NEGATIVE Urine RBC (Auto) 2 09/19/18 09/19/18 17:11 17:11 Creatine Kinase 36 CK-MB (CK-2) 0.60 Troponin I < 0.012 Impressions: Abdomen/Pelvis CT 09/19/18 00:00 IMPRESSION: NO SIGNIFICANT OR ACUTE FINDINGS IN THE ABDOMEN OR PELVIS. Stable appearance. Chest X-Ray 09/19/18 16:31 IMPRESSION: No acute interval change. Assessment & Plan - Diagnosis (1) Abdominal pain Qualifiers: Abdominal location: lower abdomen, unspecified Qualified Code(s): R10.30 - Lower abdominal pain, unspecified Is this a current diagnosis for this admission?: Yes Plan: We will place on n.p.o. status, IV fluids, pain medication, surgical consultation (2) Nausea Is this a current diagnosis for this admission?: Yes Plan: We will add Zofran (3) Anemia Qualifiers: Anemia type: iron deficiency Is this a current diagnosis for this admission?: Yes Plan: Continue current treatment (4) Chronic atrial fibrillation Is this a current diagnosis for this admission?: Yes Plan: Continue current treatment and monitoring (5) Coronary artery disease Is this a current diagnosis for this admission?: Yes Plan: Continue current treatment
--- NOTE | 2018-09-19 22:52 | PDOC CONSULTATION ---
Consultation Consult Date: 09/19/18 Attending physician:: HANSEL REID Consult reason:: Abdominal pain History of Present Illness Admission Date/PCP: 09/19/18 21:08 LASHA MANLEY PA-C History of Present Illness: ALESIA GRECO is a 87 year old female Was brought by ground rescue to the emergency department after being evaluated on an outpatient basis by Dr. Reid. The patient has been complaining of a several day history of abdominal pain, nausea, anorexia, and increased frequency of loose bowel movements. Patient denies previous episodes. She was seen in the emergency department where she was found to have by CT scan of the abdomen pelvis findings consistent with dilated small and large bowel. There is no free air or free fluid. Laboratory profile was unremarkable. Surgery was consulted, the patient was evaluated and found to have no evidence of an acute abdomen however due to advanced age late hour and uncertain etiology of her symptoms, admission was advised. Dr. Reid, primary care physician, admitted the patient. Of note she is a DNR. Past Medical History Cardiac Medical History: Reports: Atrial Fibrillation, Congestive Heart Failure, Hyperlipidema, Hypertension Denies: Coronary Artery Disease, Myocardial Infarction Pulmonary Medical History: Denies: Asthma, Bronchitis, Chronic Obstructive Pulmonary Disease (COPD), Pneumonia, Tuberculosis Neurological Medical History: Denies: Seizures Musculoskeltal Medical History: Reports: Arthritis - knees and hips Psychiatric Medical History: Reports: Depression - mild Hematology: Reports: Anemia Past Surgical History Past Surgical History: Mitral valve replacement 1994, [facility]; history of C. difficile colitis; history of hemo-pericardium; bilateral hip replacement surgery. Past Surgical History: Reports: Hysterectomy, Orthopedic Surgery - hip surgery, Pacemaker, Valve Replacement - Mitral valve 1994 Social History Lives with: Family Smoking Status: Never Smoker Frequency of Alcohol Use: None Hx Recreational Drug Use: No Drugs: None Hx Prescription Drug Abuse: No - Advance Directive Resuscitation Status: Do Not Resuscitate Family History Family History: CAD, Hypertension Parental Family History Reviewed: Yes Children Family History Reviewed: Yes Sibling(s) Family History Reviewed.: Yes Medication/Allergy Home Medications: Albuterol Sulfate [Proventil 0.5% Neb 2.5 mg/0.5 ml Vial.neb] 1 ml NEB RTQ4HP PRN 03/31/18 Atorvastatin Calcium [Lipitor 20 mg Tablet] 20 mg PO DAILY 03/31/18 Bimatoprost [Lumigan 0.01% Oph Soln 2.5 ml/Bottle] 1 drop OU BID 03/31/18 Carbamazepine [Tegretol 200 mg Tablet] 100 mg PO DAILY 03/31/18 Carvedilol [Coreg 12.5 mg Tablet] 12.5 mg PO BID 03/31/18 Cetirizine HCl [Zyrtec 10 mg Tablet] 10 mg PO DAILY 03/31/18 Cyanocobalamin/Folic AC/Vit B6 [Folgard Rx Tablet] 1 tab PO DAILY 03/31/18 Spironolactone [Aldactone 25 mg Tablet] 25 mg PO DAILY 03/31/18 Torsemide [Demadex 20 mg Tablet] 20 mg PO DAILY 03/31/18 Escitalopram Oxalate [Lexapro 10 mg Tablet] 10 mg PO DAILY tablet 04/01/18 Lorazepam [Ativan 0.5 mg Tablet] 0.5 mg PO QHS tablet 04/01/18 Nitroglycerin [Nitrostat 0.4 mg (1/150 Gr) Tabs 25/Bottle] 1 tab SL Q5MP PRN bottle 04/01/18 Betaxolol HCl [Betoptic S] 1 - 2 drop OP QHS 09/19/18 Pregabalin [Lyrica 75 mg Capsule] 75 mg PO DAILY 09/19/18 Allergies/Adverse Reactions: amlodipine Allergy (Verified 09/19/18 12:33) lisinopril Allergy (Verified 09/19/18 12:33) metoprolol Allergy (Verified 09/19/18 12:33) Penicillins Allergy (Verified 09/19/18 12:33) ramipril Allergy (Verified 09/19/18 12:33) simvastatin [From Zocor] Allergy (Verified 09/19/18 12:33) vancomycin Allergy (Verified 09/19/18 12:33) enoxaparin [From Lovenox] Adverse Reaction (Verified 09/19/18 12:33) prochlorperazine [From Compazine] Adverse Reaction (Verified 09/19/18 12:33) Review of Systems Eyes: ABSENT: visual disturbances Ears: ABSENT: hearing changes Gastrointestinal: PRESENT: as per HPI, other - Patient has had colonoscopy in the past. Physical Exam Vital Signs: Temp Pulse Resp BP Pulse Ox 97.6 F 93 19 125/70 95 09/19/18 20:08 09/19/18 12:27 09/19/18 22:01 09/19/18 22:01 09/19/18 22:01 Intake & Output 09/18/18 09/19/18 09/20/18 06:59 06:59 06:59 Weight 60.4 kg General appearance: PRESENT: no acute distress Head exam: PRESENT: normocephalic Eye exam: PRESENT: EOMI Mouth exam: PRESENT: dry mucosa Neck exam: PRESENT: other - Limited range of motion Respiratory exam: PRESENT: decreased breath sounds, other - In the left subclavian position chest wall exam reveals multiple scars consistent with previous surgery; pacer Cardiovascular exam: PRESENT: other - Paced rhythm Pulses: PRESENT: normal carotid pulses GI/Abdominal exam: PRESENT: other - Abdominal distention; reducible umbilical hernia; diffuse tenderness but only mild. No rigidity no guarding. Rectal exam: PRESENT: deferred Neurological exam: PRESENT: alert, awake, oriented to person, other Psychiatric exam: PRESENT: appropriate affect - Speech slow but intact. Results Laboratory Results: 09/19/18 09/19/18 12:05 12:11 Total Bilirubin 0.8 AST 36 ALT 36 Alkaline Phosphatase 113 Total Protein 7.0 Albumin 4.2 Lipase 184.6 Urine Color STRAW Urine Appearance CLEAR Urine pH 7.0 Ur Specific [place] 1.006 Urine Protein NEGATIVE Urine Glucose (UA) NEGATIVE Urine Ketones NEGATIVE Urine Blood SMALL H Urine Nitrite NEGATIVE Ur Leukocyte Esterase NEGATIVE Urine RBC (Auto) 2 09/19/18 09/19/18 17:11 17:11 Creatine Kinase 36 CK-MB (CK-2) 0.60 Troponin I < 0.012 Impressions: Abdomen/Pelvis CT 09/19/18 00:00 IMPRESSION: NO SIGNIFICANT OR ACUTE FINDINGS IN THE ABDOMEN OR PELVIS. Stable appearance. Chest X-Ray 09/19/18 16:31 IMPRESSION: No acute interval change. Assessment & Plan - Diagnosis (1) Abdominal pain Qualifiers: Abdominal location: lower abdomen, unspecified Qualified Code(s): R10.30 - Lower abdominal pain, unspecified Is this a current diagnosis for this admission?: Yes Plan: Impression: Several day history of abdominal pain, anorexia and nausea, distended abdomen ileus picture on CT scan; underlying etiology elusive; rule out gastroenteritis, as to patient; low suspicion for ischemic bowel. Patient does not have acute abdomen at this time; she is a DO NOT RESUSCITATE. Recommendations: I spoke with patient's son, Mr. Frederick Greco, who is healthcare power of attorney general. I have discussed my impression, recommendation for admission, IV fluids, and reassessment in the next 12 to 18 hours with a repeat examination laboratory studies. There is no indication for surgical intervention at this time. The effect of oral contrast for the CT scan may clear the patient's bowel and provide symptomatic relief. We will follow in a consulting capacity. - Time Time Spent: 30 to 50 Minutes Medications reviewed and adjusted accordingly: Yes Anticipated discharge: Home Within: within 48 hours
[2018-09-19] MEDS: NORMAL SALINE 1000 ML 1,000 ML IV PRN (22:55)
[2018-09-19] MEDS: LORAZEPAM 0.5 MG TABLET PO SCH (22:58)
[2018-09-20] MEDS: PANTOPRAZOLE SODIUM 40 MG TABLET.DR PO SCH (05:50)
--- NOTE | 2018-09-20 08:26 | PDOC PROGRESS REPORT ---
Subjective Progress Note for:: 09/20/18 Subjective:: The patient states to feel slightly better. She is still having abdominal pain. The nausea has improved. She is not passing any gas. She is apparently burping. Reason For Visit: ABDOMINAL PAIN, INTRACTABLE NAUSEA Physical Exam Vital Signs: Temp Pulse Resp BP Pulse Ox 98.3 F 69 16 116/54 L 95 09/20/18 04:12 09/20/18 04:12 09/20/18 04:12 09/20/18 04:12 09/20/18 04:12 Intake & Output 09/19/18 09/20/18 09/21/18 06:59 06:59 06:59 Weight 62.1 kg General appearance: PRESENT: mild distress Head exam: PRESENT: atraumatic Eye exam: PRESENT: conjunctival injection Mouth exam: PRESENT: dry mucosa Neck exam: ABSENT: JVD Respiratory exam: PRESENT: clear to auscultation melvi Cardiovascular exam: PRESENT: irregular rhythm, +S1, +S2 GI/Abdominal exam: PRESENT: soft, tenderness. ABSENT: guarding, rebound Extremities exam: PRESENT: tenderness Musculoskeletal exam: PRESENT: tenderness Neurological exam: PRESENT: alert, awake Results Laboratory Results: 09/19/18 09/19/18 12:05 12:11 Total Bilirubin 0.8 AST 36 ALT 36 Alkaline Phosphatase 113 Total Protein 7.0 Albumin 4.2 Lipase 184.6 Urine Color STRAW Urine Appearance CLEAR Urine pH 7.0 Ur Specific [place] 1.006 Urine Protein NEGATIVE Urine Glucose (UA) NEGATIVE Urine Ketones NEGATIVE Urine Blood SMALL H Urine Nitrite NEGATIVE Ur Leukocyte Esterase NEGATIVE Urine RBC (Auto) 2 09/19/18 09/19/18 17:11 17:11 Creatine Kinase 36 CK-MB (CK-2) 0.60 Troponin I < 0.012 Impressions: Abdomen/Pelvis CT 09/19/18 00:00 IMPRESSION: NO SIGNIFICANT OR ACUTE FINDINGS IN THE ABDOMEN OR PELVIS. Stable appearance. Chest X-Ray 09/19/18 16:31 IMPRESSION: No acute interval change. Assessment & Plan - Diagnosis (1) Abdominal pain Qualifiers: Abdominal location: lower abdomen, unspecified Qualified Code(s): R10.30 - Lower abdominal pain, unspecified Is this a current diagnosis for this admission?: Yes Plan: Still having abdominal discomfort. We will continue n.p.o. The patient has been advised to ambulate to see if that improves her passing of gas and bowel movement (2) Nausea Is this a current diagnosis for this admission?: Yes Plan: Improved we will continue with current treatment (3) Anemia Qualifiers: Anemia type: iron deficiency Is this a current diagnosis for this admission?: Yes Plan: Mild iron deficient. Will consider iron addition once her bowel problems have resolved (4) Chronic atrial fibrillation Is this a current diagnosis for this admission?: Yes Plan: Continue current treatment and monitoring (5) Coronary artery disease Is this a current diagnosis for this admission?: Yes Plan: Continue current treatment (6) Partial obstruction of small intestine Is this a current diagnosis for this admission?: Yes Plan: We will continue n.p.o. We will recheck the x-ray.
[2018-09-20] MEDS: CARVEDILOL 12.5 MG TABLET PO SCH ×2 (09:59→17:50)
[2018-09-20] MEDS: ESCITALOPRAM OXALATE 10 MG TABLET PO SCH (09:59)
[2018-09-20] MEDS: PREGABALIN 75 MG CAPSULE PO SCH (09:59)
[2018-09-20] MEDS: SPIRONOLACTONE 25 MG TABLET PO SCH (10:08)
[2018-09-20] MEDS: TORSEMIDE 20 MG TABLET PO SCH (10:09)
[2018-09-20] MEDS: ENOXAPARIN SODIUM INJ 40 MG/0.4 ML DISP.SYRIN SUBCUT SCH (10:09)
[2018-09-20] MEDS: BIMATOPROST 0.01% OPH SOLN 2.5 ML/BOTTLE OU SCH ×4 (10:10→22:12)
[2018-09-20] MEDS: CARBAMAZEPINE 200 MG TABLET PO SCH (10:11)
--- NOTE | 2018-09-20 10:57 | PDOC PROGRESS REPORT ---
Subjective Progress Note for:: 09/20/18 Reason For Visit: PARTIAL SMALL BOWEL OBSTRUCTION abdominal pain Physical Exam Vital Signs: Temp Pulse Resp BP Pulse Ox 98.3 F 89 16 116/54 L 95 09/20/18 04:12 09/20/18 07:00 09/20/18 04:12 09/20/18 04:12 09/20/18 04:12 Intake & Output 09/19/18 09/20/18 09/21/18 06:59 06:59 06:59 Weight 62.1 kg General appearance: PRESENT: no acute distress Head exam: PRESENT: normocephalic Eye exam: PRESENT: EOMI Mouth exam: PRESENT: moist Neck exam: PRESENT: full ROM Respiratory exam: PRESENT: clear to auscultation melvi Cardiovascular exam: PRESENT: RRR Pulses: PRESENT: normal radial pulses, normal femoral pulses Vascular exam: PRESENT: normal capillary refill GI/Abdominal exam: PRESENT: other - tender to palpation, no peritoneal ir riation, umbilical hernia reducible, no groin hernias tympanitic. few bs. Rectal exam: PRESENT: deferred Musculoskeletal exam: PRESENT: ambulatory, full ROM Neurological exam: PRESENT: alert, awake, oriented to person, oriented to place, oriented to time, oriented to situation Psychiatric exam: PRESENT: appropriate affect Skin exam: PRESENT: dry Results Laboratory Results: 09/19/18 09/19/18 12:05 12:11 Total Bilirubin 0.8 AST 36 ALT 36 Alkaline Phosphatase 113 Total Protein 7.0 Albumin 4.2 Lipase 184.6 Urine Color STRAW Urine Appearance CLEAR Urine pH 7.0 Ur Specific Bailey 1.006 Urine Protein NEGATIVE Urine Glucose (UA) NEGATIVE Urine Ketones NEGATIVE Urine Blood SMALL H Urine Nitrite NEGATIVE Ur Leukocyte Esterase NEGATIVE Urine RBC (Auto) 2 09/19/18 09/19/18 17:11 17:11 Creatine Kinase 36 CK-MB (CK-2) 0.60 Troponin I < 0.012 Impressions: Abdomen/Pelvis CT 09/19/18 00:00 IMPRESSION: NO SIGNIFICANT OR ACUTE FINDINGS IN THE ABDOMEN OR PELVIS. Stable appearance. Chest X-Ray 09/19/18 16:31 IMPRESSION: No acute interval change. Assessment & Plan - Plan Summary Plan Summary: pt states she is passing gas she does have a chronic long hx of constapation and uses chronic laxatives (every day) pt currently does not want a ng tube wants to try enemas which I agree with will start with enemas and she will increase her activity would cont npo for now and could consider diagnostic laparoscopy, if she does not improve in 2-3 days.
[2018-09-20] MEDS: NORMAL SALINE 1000 ML 1,000 ML IV PRN (19:58)
[2018-09-20] MEDS: LORAZEPAM 0.5 MG TABLET PO SCH (22:11)
[2018-09-21] MEDS: PANTOPRAZOLE SODIUM 40 MG TABLET.DR PO SCH (05:02)
[2018-09-21 05:45] LABS: ABSOLUTE EOSINOPHILS # (AUTO) 0.2 10^3/uL (0.0-0.6); ABSOLUTE MONOCYTES (AUTO) 0.6 10^3/uL (0.1-1.4); ABSOLUTE NEUT (AUTO) 2.3 10^3/uL (1.7-8.2); BASOPHILS % (AUTO) 0.6 % (0-2); EOSINOPHILS % (AUTO) 4.3 % (0-6); HEMATOCRIT 31.3 % (36.0-47.0); HEMOGLOBIN 10.4 g/dL (12.0-15.5); LYMPHOCYTES % (AUTO) 23.6 % (13-45); MEAN CORPUSCULAR HEMOGLOBIN 32.8 pg (27.0-33.4); MEAN CORPUSCULAR HGB CONC 33.4 g/dL (32.0-36.0); MEAN CORPUSCULAR VOLUME 98 fl (80-97); MONOCYTES % (AUTO) 13.7 % (3-13); RED BLOOD COUNT 3.18 10^6/uL (3.72-5.28); RED CELL DISTRIBUTION WIDTH 13.1 % (11.5-14.0); SEGMENTED NEUTROPHILS % (AUTO) 57.8 % (42-78); TOTAL CELLS COUNTED % (AUTO) 100 %
[2018-09-21 06:00] LABS: ALANINE AMINOTRANSFERASE 32 U/L (9-52); ALBUMIN 3.4 g/dL (3.5-5.0); ALKALINE PHOSPHATASE 79 U/L (38-126); ANION GAP 13 (5-19); ASPARTATE AMINO TRANSFERASE 30 U/L (14-36); BILIRUBIN,DIRECT 0.4 mg/dL (0.0-0.4); BILIRUBIN,TOTAL 0.7 mg/dL (0.2-1.3); BLOOD UREA NITROGEN 21 mg/dL (7-20); CALCIUM 9.3 mg/dL (8.4-10.2); CARBON DIOXIDE 24 mmol/L (22-30); CHLORIDE 103 mmol/L (98-107); GLUCOSE 108 mg/dL (75-110); SODIUM 139.6 mmol/L (137-145); TOTAL PROTEIN 5.8 g/dL (6.3-8.2)
[2018-09-21 06:02] LABS: POTASSIUM 3.4 mmol/L (3.6-5.0)
[2018-09-21 06:09] LABS: PLATELET COUNT 81 10^3/uL (150-450)
--- NOTE | 2018-09-21 08:16 | PDOC PROGRESS REPORT ---
Subjective Progress Note for:: 09/21/18 Subjective:: The patient states to feel better. She is passing gas. She still has not had a good bowel movement. She stated that she had a little bit of runny dark water after she had an enema. She denies any abdominal pain. Her nausea has resolved. She is still burping Reason For Visit: PARTIAL SMALL BOWEL OBSTRUCTION Physical Exam Vital Signs: Temp Pulse Resp BP Pulse Ox 97.9 F 84 15 119/72 97 09/21/18 03:12 09/21/18 03:12 09/21/18 03:12 09/21/18 03:12 09/21/18 03:12 Intake & Output 09/20/18 09/21/18 09/22/18 06:59 06:59 06:59 Intake Total 800 Output Total 0 Balance 800 Weight 62.1 kg 61.5 kg General appearance: PRESENT: mild distress Head exam: PRESENT: atraumatic Eye exam: PRESENT: conjunctival injection Mouth exam: PRESENT: dry mucosa Neck exam: PRESENT: carotid bruit. ABSENT: JVD Respiratory exam: PRESENT: clear to auscultation melvi Cardiovascular exam: PRESENT: irregular rhythm, +S1, +S2 GI/Abdominal exam: PRESENT: normal bowel sounds, soft. ABSENT: guarding, tenderness Extremities exam: PRESENT: full ROM Musculoskeletal exam: PRESENT: ambulatory Neurological exam: PRESENT: alert, awake Results Laboratory Results: 09/21/18 05:25 09/21/18 05:25 09/21/18 09/21/18 05:25 05:25 WBC 4.0 RBC 3.18 L Hgb 10.4 L Hct 31.3 L MCV 98 H MCH 32.8 MCHC 33.4 RDW 13.1 Plt Count 81 L Seg Neutrophils % 57.8 Lymphocytes % 23.6 Monocytes % 13.7 H Eosinophils % 4.3 Basophils % 0.6 Absolute Neutrophils 2.3 Absolute Lymphocytes 1.0 Absolute Monocytes 0.6 Absolute Eosinophils 0.2 Absolute Basophils 0.0 Sodium 139.6 Potassium 3.4 L Chloride 103 Carbon Dioxide 24 Anion Gap 13 BUN 21 H Creatinine 0.85 Est GFR ( Amer) > 60 Est GFR (Non-Af Amer) > 60 Glucose 108 Calcium 9.3 Magnesium 1.4 L Total Bilirubin 0.7 AST 30 ALT 32 Alkaline Phosphatase 79 Total Protein 5.8 L Albumin 3.4 L 09/19/18 09/19/18 17:11 17:11 Creatine Kinase 36 CK-MB (CK-2) 0.60 Troponin I < 0.012 Impressions: Abdomen/Pelvis CT 09/19/18 00:00 IMPRESSION: NO SIGNIFICANT OR ACUTE FINDINGS IN THE ABDOMEN OR PELVIS. Stable appearance. Chest X-Ray 09/19/18 16:31 IMPRESSION: No acute interval change. Assessment & Plan - Diagnosis (1) Abdominal pain Qualifiers: Abdominal location: lower abdomen, unspecified Qualified Code(s): R10.30 - Lower abdominal pain, unspecified Is this a current diagnosis for this admission?: Yes Plan: Improved we will continue with current treatment. Will start on clear liquids and advance as tolerated (2) Nausea Is this a current diagnosis for this admission?: Yes Plan: Resolved we will continue with PPIs and awaiting bowel movement (3) Anemia Qualifiers: Anemia type: iron deficiency Is this a current diagnosis for this admission?: Yes Plan: Continue current treatment (4) Chronic atrial fibrillation Is this a current diagnosis for this admission?: Yes Plan: Continue current treatment and monitoring (5) Coronary artery disease Is this a current diagnosis for this admission?: Yes Plan: Continue current treatment (6) Partial obstruction of small intestine Is this a current diagnosis for this admission?: Yes Plan: Patient is passing gas. Her bowels sounds are normal. Will advance diet to clear liquids and as tolerated. Will give a fleets enema
[2018-09-21] MEDS ORDERED: NA PHOS,M-B/NA PHOS,DI-BA (ADULT) 133 ML ENEMA PR ONE (08:30)
--- NOTE | 2018-09-21 09:36 | PDOC PROGRESS REPORT ---
Subjective Progress Note for:: 09/21/18 Subjective:: no c/o, no nausea or vomiting, patient reports flatus, very small stool this AM after enema Reason For Visit: PARTIAL SMALL BOWEL OBSTRUCTION Physical Exam Vital Signs: Temp Pulse Resp BP Pulse Ox 98.2 F 83 18 129/55 H 95 09/21/18 07:34 09/21/18 07:34 09/21/18 07:34 09/21/18 07:34 09/21/18 07:34 Intake & Output 09/20/18 09/21/18 09/22/18 06:59 06:59 06:59 Intake Total 800 Output Total 0 Balance 800 Weight 62.1 kg 61.5 kg General appearance: PRESENT: no acute distress Respiratory exam: PRESENT: clear to auscultation melvi Cardiovascular exam: PRESENT: RRR GI/Abdominal exam: PRESENT: normal bowel sounds, soft Results Laboratory Results: 09/21/18 05:25 09/21/18 05:25 09/21/18 09/21/18 05:25 05:25 WBC 4.0 RBC 3.18 L Hgb 10.4 L Hct 31.3 L MCV 98 H MCH 32.8 MCHC 33.4 RDW 13.1 Plt Count 81 L Seg Neutrophils % 57.8 Lymphocytes % 23.6 Monocytes % 13.7 H Eosinophils % 4.3 Basophils % 0.6 Absolute Neutrophils 2.3 Absolute Lymphocytes 1.0 Absolute Monocytes 0.6 Absolute Eosinophils 0.2 Absolute Basophils 0.0 Sodium 139.6 Potassium 3.4 L Chloride 103 Carbon Dioxide 24 Anion Gap 13 BUN 21 H Creatinine 0.85 Est GFR ( Amer) > 60 Est GFR (Non-Af Amer) > 60 Glucose 108 Calcium 9.3 Magnesium 1.4 L Total Bilirubin 0.7 AST 30 ALT 32 Alkaline Phosphatase 79 Total Protein 5.8 L Albumin 3.4 L 09/19/18 09/19/18 17:11 17:11 Creatine Kinase 36 CK-MB (CK-2) 0.60 Troponin I < 0.012 Impressions: Abdomen/Pelvis CT 09/19/18 00:00 IMPRESSION: NO SIGNIFICANT OR ACUTE FINDINGS IN THE ABDOMEN OR PELVIS. Stable appearance. Chest X-Ray 09/19/18 16:31 IMPRESSION: No acute interval change. Assessment & Plan - Plan Summary Plan Summary: A/ Constipation Flatus today Small stool this AM after enema feels hungry P/ Agree with advancing her diet to clear liquids and further is tolerated No acute General Surgery issues identified Will follow
[2018-09-21] MEDS: CARBAMAZEPINE 200 MG TABLET PO SCH (11:16)
[2018-09-21] MEDS: MAGNESIUM OXIDE 400 MG TABLET PO SCH ×2 (11:16→18:36)
[2018-09-21] MEDS: TORSEMIDE 20 MG TABLET PO SCH (11:17)
[2018-09-21] MEDS: PREGABALIN 75 MG CAPSULE PO SCH (11:17)
[2018-09-21] MEDS: ESCITALOPRAM OXALATE 10 MG TABLET PO SCH (11:17)
[2018-09-21] MEDS: SPIRONOLACTONE 25 MG TABLET PO SCH (11:17)
[2018-09-21] MEDS: CARVEDILOL 12.5 MG TABLET PO SCH ×2 (11:17→18:36)
[2018-09-21] MEDS: ENOXAPARIN SODIUM INJ 40 MG/0.4 ML DISP.SYRIN SUBCUT SCH (11:27)
--- NOTE | 2018-09-21 11:46 | RADIOLOGY REPORT (SQ) ---
EXAM DESCRIPTION: KUB/ABDOMEN (SINGLE VIEW) COMPLETED DATE/TIME: 09/21/2018 10:35 am REASON FOR STUDY: f/u sbo COMPARISON: 09/19/2018 NUMBER OF VIEWS: One view. TECHNIQUE: Supine radiographic image of the abdomen acquired. LIMITATIONS: None. FINDINGS: BOWEL GAS PATTERN: Nonspecific bowel gas pattern without evidence of intestinal obstructio n. Contrast throughout the colon. CALCIFICATIONS: No suspicious calcifications. Scattered pelvic phleboliths. No radiopaque stones ov erlie kidneys. SOFT TISSUES: No gross mass or suggestion of organomegaly. HARDWARE: Partially visualized pacer hardware. Partially visualized femoral prostheses. BONES: No acute findings. Osteopenia. Thoracolumbar spondylosis. Bilateral hip arthroplasties. OTHER: No other significant finding. IMPRESSION: No evidence of intestinal obstruction or other acute intra-abdominal/pelvic process. TECHNICAL DOCUMENTATION: JOB ID: [id number] [employer]- All Rights Reserved Reading location - IP/workstation name: [email or web address]
[2018-09-21] MEDS: LORAZEPAM 0.5 MG TABLET PO SCH (21:23)
[2018-09-21] MEDS: BIMATOPROST 0.01% OPH SOLN 2.5 ML/BOTTLE OU SCH (21:24)
[2018-09-22] MEDS: PANTOPRAZOLE SODIUM 40 MG TABLET.DR PO SCH (05:02)
--- NOTE | 2018-09-22 08:49 | PDOC PROGRESS REPORT ---
Subjective Progress Note for:: 09/22/18 Subjective:: The patient states to feel slightly better. She still has not had a bowel movement. She has tolerated full liquid diet well. She has ambulated around. Discussed the need to have a bowel movement prior to discharge home. Advised patient that we will probably need to try very mild laxative to avoid any excessive abdominal intestinal contraction Reason For Visit: PARTIAL SMALL BOWEL OBSTRUCTION Physical Exam Vital Signs: Temp Pulse Resp BP Pulse Ox 98.0 F 77 16 108/51 L 96 09/22/18 07:44 09/22/18 07:44 09/22/18 07:44 09/22/18 07:44 09/22/18 07:44 Intake & Output 09/21/18 09/22/18 09/23/18 06:59 06:59 06:59 Intake Total 800 450 Output Total 0 Balance 800 450 Weight 61.5 kg 59.3 kg General appearance: PRESENT: mild distress Head exam: PRESENT: atraumatic Eye exam: PRESENT: conjunctiva pink Mouth exam: PRESENT: dry mucosa Neck exam: PRESENT: carotid bruit. ABSENT: JVD Respiratory exam: PRESENT: clear to auscultation melvi Cardiovascular exam: PRESENT: irregular rhythm, +S1, +S2 GI/Abdominal exam: PRESENT: normal bowel sounds, soft. ABSENT: guarding, rebound Extremities exam: PRESENT: full ROM, tenderness Musculoskeletal exam: PRESENT: ambulatory Neurological exam: PRESENT: alert, awake Results Laboratory Results: 09/21/18 05:25 09/21/18 05:25 09/19/18 12:05 Clean Catch Midstream Urine Culture - Final NO GROWTH 2 DAYS 09/19/18 09/19/18 17:11 17:11 Creatine Kinase 36 CK-MB (CK-2) 0.60 Troponin I < 0.012 Impressions: Abdomen/Pelvis CT 09/19/18 00:00 IMPRESSION: NO SIGNIFICANT OR ACUTE FINDINGS IN THE ABDOMEN OR PELVIS. Stable appearance. Chest X-Ray 09/19/18 16:31 IMPRESSION: No acute interval change. KUB X-Ray 09/21/18 00:00 IMPRESSION: No evidence of intestinal obstruction or other acute intra- abdominal/pelvic process. Assessment & Plan - Diagnosis (1) Abdominal pain Qualifiers: Abdominal location: lower abdomen, unspecified Qualified Code(s): R10.30 - Lower abdominal pain, unspecified Is this a current diagnosis for this admission?: Yes Plan: Resolved continue current treatment. The patient tolerated clear liquids well (2) Nausea Is this a current diagnosis for this admission?: Yes Plan: Resolved we will continue with PPIs and awaiting bowel movement (3) Anemia Qualifiers: Anemia type: iron deficiency Is this a current diagnosis for this admission?: Yes Plan: Continue current treatment (4) Chronic atrial fibrillation Is this a current diagnosis for this admission?: Yes Plan: Continue current treatment and monitoring (5) Coronary artery disease Is this a current diagnosis for this admission?: Yes Plan: Continue current treatment (6) Partial obstruction of small intestine Is this a current diagnosis for this admission?: Yes Plan: Still no bowel movements. Will advance diet, will use MiraLAX and fleets enema.
[2018-09-22] MEDS ORDERED: NA PHOS,M-B/NA PHOS,DI-BA (ADULT) 133 ML ENEMA PR ONE (09:00)
--- NOTE | 2018-09-22 09:49 | PDOC PROGRESS REPORT ---
Subjective Progress Note for:: 09/22/18 Subjective:: No c/o, no N/V, patient reports flatus, no stools Reason For Visit: PARTIAL SMALL BOWEL OBSTRUCTION Physical Exam Vital Signs: Temp Pulse Resp BP Pulse Ox 98.0 F 77 16 108/51 L 96 09/22/18 07:44 09/22/18 07:44 09/22/18 07:44 09/22/18 07:44 09/22/18 07:44 Intake & Output 09/21/18 09/22/18 09/23/18 06:59 06:59 06:59 Intake Total 800 450 Output Total 0 Balance 800 450 Weight 61.5 kg 59.3 kg General appearance: PRESENT: no acute distress GI/Abdominal exam: PRESENT: distended, soft, other - not tender Results Laboratory Results: 09/21/18 05:25 09/21/18 05:25 09/19/18 12:05 Clean Catch Midstream Urine Culture - Final NO GROWTH 2 DAYS 09/19/18 09/19/18 17:11 17:11 Creatine Kinase 36 CK-MB (CK-2) 0.60 Troponin I < 0.012 Impressions: Abdomen/Pelvis CT 09/19/18 00:00 IMPRESSION: NO SIGNIFICANT OR ACUTE FINDINGS IN THE ABDOMEN OR PELVIS. Stable appearance. Chest X-Ray 09/19/18 16:31 IMPRESSION: No acute interval change. KUB X-Ray 09/21/18 00:00 IMPRESSION: No evidence of intestinal obstruction or other acute intra- abdominal/pelvic process. Assessment & Plan - Plan Summary Plan Summary: A/ Chronic constipation, most likely due to slow colonic transit Condition is most likely worsened by patient's age and daily use of laxatives or other drugs stimulating the intestine (i.e. Mg Oxide) Diet advanced to soft diet today The patient has not defecated uet. P/ 1) I am recommending to add fibers to her diet and to eliminate any gastrointestinal irritant (Mg Oxide) 2) Also, colonic transit time study could be done in Radiology as outpatient followed by barium enema and defecography. These tests will definitively provide the correct diagnosis for this patient condition. 3) If there is no resolution to her constipation and everything fails, and the constipation becomes an issue and interferes with the patient lifestyle, total colectomy with end-ileostomy becomes an aggressive but necessary option. I will sign off. Please, call me with questions
[2018-09-22] MEDS ORDERED: POLYETHYLENE GLYCOL 3350 POWDER 17 GM/1 PACKET PO SCH (10:00)
[2018-09-22] MEDS: SPIRONOLACTONE 25 MG TABLET PO SCH (10:11)
[2018-09-22] MEDS: ENOXAPARIN SODIUM INJ 40 MG/0.4 ML DISP.SYRIN SUBCUT SCH (10:11)
[2018-09-22] MEDS: ESCITALOPRAM OXALATE 10 MG TABLET PO SCH (10:11)
[2018-09-22] MEDS: PREGABALIN 75 MG CAPSULE PO SCH (10:11)
[2018-09-22] MEDS: CARVEDILOL 12.5 MG TABLET PO SCH (10:11)
[2018-09-22] MEDS: TORSEMIDE 20 MG TABLET PO SCH (10:16)
[2018-09-22] MEDS: CARBAMAZEPINE 200 MG TABLET PO SCH (10:16)
[2018-09-22] MEDS ORDERED: MAGNESIUM OXIDE 400 MG TABLET PO SCH (11:00)
[2018-09-22] MEDS ORDERED: PSYLLIUM SEED-SF 5.85 GM PACKET PO SCH (11:00)
--- NOTE | 2018-09-22 14:54 | PDOC DISCHARGE SUMMARY ---
General - Admit/Disc Date/PCP Admission Date/Primary Care Provider: 09/20/18 08:21 LASHA MANLEY PA-C Discharge Date: 09/22/18 - Discharge Diagnosis (1) Abdominal pain Is this a current diagnosis for this admission?: Yes Summary: Resolved continue current treatment (2) Nausea Is this a current diagnosis for this admission?: Yes Summary: Resolved continue current treatment (3) Anemia Is this a current diagnosis for this admission?: Yes Summary: Stable continue current treatment (4) Chronic atrial fibrillation Is this a current diagnosis for this admission?: Yes Summary: Stable continue current medication (5) Coronary artery disease Is this a current diagnosis for this admission?: Yes Summary: Stable continue current medication (6) Partial obstruction of small intestine Is this a current diagnosis for this admission?: Yes Summary: Resolved continue current treatment - Additional Information Resuscitation Status: Do Not Resuscitate Discharge Diet: Regular, Cardiac Discharge Activity: Activity As Tolerated Home Medications: Carvedilol [Coreg 12.5 mg Tablet] 12.5 mg PO Q12 03/31/18 Cetirizine HCl [Zyrtec 10 mg Tablet] 10 mg PO DAILY 03/31/18 Spironolactone [Aldactone 25 mg Tablet] 25 mg PO BID 03/31/18 Escitalopram Oxalate [Lexapro 10 mg Tablet] 10 mg PO DAILY tablet 04/01/18 Lorazepam [Ativan 0.5 mg Tablet] 0.5 mg PO QHS tablet 04/01/18 Betaxolol HCl [Betoptic S] 1 drop OP QHS 09/19/18 Pregabalin [Lyrica 75 mg Capsule] 150 mg PO Q8 09/19/18 Atorvastatin Calcium [Lipitor 10 mg Tablet] 10 mg PO QHS 09/20/18 Cyanocobalamin/Folic AC/Vit B6 [Virt-Paras Tablet] 1 tab PO DAILY 09/20/18 Fluticasone Propionate [Flonase Nasal Tobias 50 Mcg/Tobias 16 gm] 1 spray NASL DAILY 09/20/18 Torsemide [Demadex 10 mg Tablet] 10 mg PO BID 09/20/18 Acetaminophen [Tylenol 325 mg Tablet] 650 mg PO Q4HP PRN tablet 09/22/18 Magnesium Oxide [Mag-Ox 400 mg Tablet] 400 mg PO BID tablet 09/22/18 History of Present Illness History of Present Illness: ALESIA GRECO is a 87 year old female Hospital Course Hospital Course: The patient did well after the hospitalization. She has been placed on n.p.o. Her CAT scan was consistent with possible small bowel obstruction partial. The patient was placed on gut rest. She has tolerated IV fluids. She was well hydrated. Her nausea has resolved. On the day of discharge she finally had a good bowel movement Physical Exam Vital Signs: Temp Pulse Resp BP Pulse Ox 98.3 F 69 16 106/47 L 98 09/22/18 11:52 09/22/18 11:52 09/22/18 11:52 09/22/18 11:52 09/22/18 11:52 Intake & Output 09/21/18 09/22/18 09/23/18 06:59 06:59 06:59 Intake Total 800 450 467 Output Total 0 Balance 800 450 467 Weight 61.5 kg 59.3 kg General appearance: PRESENT: no acute distress Head exam: PRESENT: atraumatic Eye exam: PRESENT: conjunctiva pink Mouth exam: PRESENT: moist Neck exam: PRESENT: carotid bruit. ABSENT: JVD Respiratory exam: PRESENT: clear to auscultation melvi Cardiovascular exam: PRESENT: irregular rhythm, +S1, +S2 GI/Abdominal exam: PRESENT: normal bowel sounds, soft Extremities exam: PRESENT: full ROM, tenderness Musculoskeletal exam: PRESENT: ambulatory, tenderness Neurological exam: PRESENT: alert, awake Results Laboratory Results: 09/21/18 05:25 09/21/18 05:25 09/19/18 09/19/18 17:11 17:11 Creatine Kinase 36 CK-MB (CK-2) 0.60 Troponin I < 0.012 Impressions: Abdomen/Pelvis CT 09/19/18 00:00 IMPRESSION: NO SIGNIFICANT OR ACUTE FINDINGS IN THE ABDOMEN OR PELVIS. Stable appearance. Chest X-Ray 09/19/18 16:31 IMPRESSION: No acute interval change. KUB X-Ray 09/21/18 00:00 IMPRESSION: No evidence of intestinal obstruction or other acute intra- abdominal/pelvic process. Qualifiers - * PATIENT BEING DISCHARGED WITH ANY OF THE FOLLOWING DIAGNOSIS: No VTE patient discharged on overlapping Therapy?: Yes
[2018-09-22 15:28] VITALS: BP 118/55
== END 2018-09-22 16:01 | disposition home health service (06) | DRG 390 ==
LOC: ER 12:18 → EH 21:08 → 3S 23:09 → OBSVTOIN 09-20 08:21
PROVIDERS: ADMIT Internal Medicine; ATTEND Internal Medicine
DX: K56.600 Partial intestinal obstruction, unspecified as to cause (principal); K59.09 Other constipation; Z66 Do not resuscitate; I11.0 Hypertensive heart disease with heart failure; I50.9 Heart failure, unspecified; E78.5 Hyperlipidemia, unspecified; D50.9 Iron deficiency anemia, unspecified; I48.2 Chronic atrial fibrillation; I25.10 Atherosclerotic heart disease of native coronary artery without angina pectoris; M13.861 Other specified arthritis, right knee; Z96.643 Presence of artificial hip joint, bilateral; Z95.2 Presence of prosthetic heart valve; Z90.710 Acquired absence of both cervix and uterus; Z82.49 Family history of ischemic heart disease and other diseases of the circulatory system; Z88.0 Allergy status to penicillin; Z88.6 Allergy status to analgesic agent; Z79.899 Other long term (current) drug therapy; Z88.1 Allergy status to other antibiotic agents
CPT/HCPCS: 36415; 71045; 74018; 74177; 80048; 80053; 80076; 81001; 82550; 82553; 82962; 83690; 83735; 83880; 84443; 84484; 85025; 87086; 96374; 96376; 99284; J1650; J2405; J3490; J7030

== ENCOUNTER → 2018-09-19 | Outpatient (CLI) | payer MEDICARE, BC ==
[2018-09-19 12:24] LABS: HEMATOCRIT 34.6 % (36.0-47.0); HEMOGLOBIN 11.8 g/dL (12.0-15.5); MEAN CORPUSCULAR HEMOGLOBIN 33.4 pg (27.0-33.4); MEAN CORPUSCULAR HGB CONC 34.2 g/dL (32.0-36.0); MEAN CORPUSCULAR VOLUME 98 fl (80-97); PLATELET COUNT 101 10^3/uL (150-450); RED BLOOD COUNT 3.54 10^6/uL (3.72-5.28); RED CELL DISTRIBUTION WIDTH 13.4 % (11.5-14.0); WHITE BLOOD COUNT 5.3 10^3/uL (4.0-10.5)
[2018-09-19 12:47] LABS: ANION GAP 8 (5-19); BLOOD UREA NITROGEN 23 mg/dL (7-20); CALCIUM 10.2 mg/dL (8.4-10.2); CARBON DIOXIDE 32 mmol/L (22-30); CHLORIDE 101 mmol/L (98-107); GLUCOSE 101 mg/dL (75-110); POTASSIUM 4.2 mmol/L (3.6-5.0); SODIUM 140.9 mmol/L (137-145)
[2018-09-19 13:52] LABS: ABSOLUTE LYMPHOCYTES# (MANUAL) 0.8 10^3/uL (0.5-4.7); ABSOLUTE MONOCYTES # (MANUAL) 0.8 10^3/uL (0.1-1.4); ABSOLUTE NEUTROPHILS# (MANUAL) 3.4 10^3/uL (1.7-8.2); BASOPHILS % (MANUAL) 1 % (0-2); EOSINOPHILS % (MANUAL) 4 % (0-6); LYMPHOCYTES % (MANUAL) 14 % (13-45); MONOCYTES % (MANUAL) 15 % (3-13); SEGMENTED NEUTROPHILS % (MAN) 64 % (42-78); TOTAL CELLS COUNTED 100
[2018-09-19 13:54] LABS: OVALOCYTES SLIGHT; POIKILOCYTOSIS SLIGHT
[2018-09-19 13:55] LABS: PLATELET COMMENT DECREASED
== END ==
LOC: LAB 11:37
PROVIDERS: ATTEND Physician Assistant
DX: R11.0 Nausea (principal); R19.7 Diarrhea, unspecified; I48.2 Chronic atrial fibrillation; I47.2 Ventricular tachycardia
CPT/HCPCS: 36415; 80048; 83735; 83880; 84443; 85025

== ENCOUNTER → 2018-09-30 | Outpatient (CLI) | payer MEDICARE, BC ==
[2018-09-30 13:17] LABS: APPEARANCE,URINE CLEAR; BILIRUBIN,URINE NEGATIVE (NEGATIVE); COLOR,URINE YELLOW; GLUCOSE, URINE NEGATIVE (NEGATIVE); KETONES,URINE NEGATIVE (NEGATIVE); LEUKOCYTE ESTERASE,URINE NEGATIVE (NEGATIVE); NITRITE,URINE NEGATIVE (NEGATIVE); PROTEIN,URINE NEGATIVE (NEGATIVE); URINE SPECIFIC GRAVITY 1.008; UROBILINOGEN,URINE NEGATIVE mg/dL (<2.0)
--- NOTE | 2018-09-30 14:36 | RADIOLOGY REPORT (SQ) ---
EXAM DESCRIPTION: CT ABD/PELVIS ORAL ONLY COMPLETED DATE/TIME: 09/30/2018 2:19 pm REASON FOR STUDY: K57.32 DIVERTICULITIS OF LARGE INTESTINE WITHOUT PERFORATION OR ABSCESS WIT K57.32 DVTRCLI OF LG INT W/O PERFORATION OR ABSCESS W/O BLEE N39.0 URINARY TRACT INFECTION, SITE NOT SPEC IFIED COMPARISON: 09/19/2018. TECHNIQUE: CT scan of the abdomen and pelvis performed with oral contrast and no intravenous contras t. Images reviewed with lung, soft tissue, and bone windows. Reconstructed coronal and sagittal MPR i mages reviewed. All images stored on PACS. All CT scanners at this facility use dose modulation, iterative reconstruction, and/or weight based d osing when appropriate to reduce radiation dose to as low as reasonably achievable (ALARA). [facility]: Dose Right [facility]: CareDose [facility]: Dose Right [facility]: Teradose 4D [facility]: Smart [email or web address] RADIATION DOSE: CT Rad equipment meets quality standard of care and radiation dose reduction techniq ues were employed. CTDIvol: 4.5 mGy. DLP: 213 mGy-cm.mGy. LIMITATIONS: None. FINDINGS: LOWER CHEST: Cardiomegaly. No nodules or infiltrates. NON-CONTRASTED LIVER, SPLEEN, ADRENALS: Evaluation limited by lack of IV contrast. No identified sign ificant masses. PANCREAS: No masses. No peripancreatic inflammatory changes. GALLBLADDER: No identified stones by CT criteria. No inflammatory changes to suggest cholecystitis. RIGHT KIDNEY AND URETER: Stable cortical cyst. No solid masses. No significant calcification. No hyd ronephrosis or hydroureter. LEFT KIDNEY AND URETER: No solid masses. No significant calcification. No hydronephrosis or hydrouret er. AORTA AND RETROPERITONEUM: No aneurysm. No retroperitoneal masses or adenopathy. BOWEL AND PERITONEAL CAVITY: No obvious masses or inflammatory changes. No free fluid. APPENDIX: Normal. PELVIS, BLADDER, AND ABDOMINAL WALL: Limited visualization due to metallic artifact from hip prosthes es. Left adnexal cyst unchanged. No abdominal wall hernias. BONES: No significant findings. Bilateral hip prostheses. OTHER: No other significant finding. IMPRESSION: 1. 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 2. STABLE CARDIOMEGALY. 3. NO OTHER ACUTE OR SIGNIFICANT FINDINGS IN THE ABDOMEN OR PELVIS. NO CT FINDINGS OF DIVERTICULITIS . PORTIONS OF THE PELVIS ARE POORLY VISUALIZED DUE TO METALLIC ARTIFACT. TECHNICAL DOCUMENTATION: JOB ID: [id number] Quality ID # [id number]: Final reports with documentation of one or more dose reduction techniques (e.g., Au tomated exposure control, adjustment of the mA and/or kV according to patient size, use of iterative reconstruction technique) 2010 [employer]- All Rights Reserved Reading location - IP/workstation name: [email or web address] THE [email or web address]
== END ==
LOC: RAD 11:35
PROVIDERS: ATTEND Family Medicine Geriatric Medicine
DX: K57.32 Diverticulitis of large intestine without perforation or abscess without bleeding (principal); N39.0 Urinary tract infection, site not specified
CPT/HCPCS: 74176; 81001; 87086

== ENCOUNTER → 2018-10-04 | Outpatient (CLI) | payer MEDICARE, BC ==
[2018-10-04 14:36] LABS: ABSOLUTE EOSINOPHILS # (AUTO) 0.2 10^3/uL (0.0-0.6); ABSOLUTE LYMPHOCYTES (AUTO) 1.2 10^3/uL (0.5-4.7); ABSOLUTE MONOCYTES (AUTO) 0.7 10^3/uL (0.1-1.4); ABSOLUTE NEUT (AUTO) 3.4 10^3/uL (1.7-8.2); BASOPHILS % (AUTO) 0.5 % (0-2); EOSINOPHILS % (AUTO) 3.5 % (0-6); HEMATOCRIT 33.6 % (36.0-47.0); HEMOGLOBIN 11.7 g/dL (12.0-15.5); LYMPHOCYTES % (AUTO) 22.4 % (13-45); MEAN CORPUSCULAR HEMOGLOBIN 33.2 pg (27.0-33.4); MEAN CORPUSCULAR HGB CONC 34.9 g/dL (32.0-36.0); MEAN CORPUSCULAR VOLUME 95 fl (80-97); MONOCYTES % (AUTO) 13.4 % (3-13); PLATELET COUNT 112 10^3/uL (150-450); RED BLOOD COUNT 3.53 10^6/uL (3.72-5.28); RED CELL DISTRIBUTION WIDTH 13.4 % (11.5-14.0); SEGMENTED NEUTROPHILS % (AUTO) 60.2 % (42-78); TOTAL CELLS COUNTED % (AUTO) 100 %; WHITE BLOOD COUNT 5.6 10^3/uL (4.0-10.5)
== END ==
LOC: LAB 13:57
PROVIDERS: ATTEND Internal Medicine
DX: D64.9 Anemia, unspecified (principal)
CPT/HCPCS: 36415; 82272; 85025

== ENCOUNTER → 2018-11-22 | Outpatient (CLI) | payer MEDICARE, BC ==
[2018-11-22 15:27] LABS: ALANINE AMINOTRANSFERASE 34 U/L (9-52); ALBUMIN 4.2 g/dL (3.5-5.0); ALKALINE PHOSPHATASE 86 U/L (38-126); ANION GAP 9 (5-19); ASPARTATE AMINO TRANSFERASE 36 U/L (14-36); BILIRUBIN,DIRECT 0.3 mg/dL (0.0-0.4); BILIRUBIN,TOTAL 0.6 mg/dL (0.2-1.3); BLOOD UREA NITROGEN 18 mg/dL (7-20); CALCIUM 9.6 mg/dL (8.4-10.2); CARBON DIOXIDE 31 mmol/L (22-30); CHLORIDE 99 mmol/L (98-107); GLUCOSE 102 mg/dL (75-110); POTASSIUM 3.5 mmol/L (3.6-5.0); SODIUM 138.7 mmol/L (137-145); TOTAL PROTEIN 6.3 g/dL (6.3-8.2)
== END ==
LOC: LAB 14:44
PROVIDERS: ATTEND Internal Medicine
DX: D69.2 Other nonthrombocytopenic purpura (principal); R94.5 Abnormal results of liver function studies
CPT/HCPCS: 36415; 80053; 82140

== ENCOUNTER → 2019-04-17 | Outpatient (CLI) | payer MEDICARE, BC ==
--- NOTE | 2019-04-17 14:41 | RADIOLOGY REPORT (SQ) ---
EXAM DESCRIPTION: HIP LEFT AP/LATERAL COMPLETED DATE/TIME: 04/17/2019 2:04 pm REASON FOR STUDY: L HIP PAIN COMPARISON: None. NUMBER OF VIEWS: Two views. TECHNIQUE: AP pelvis and additional frog-leg view of the left hip. LIMITATIONS: None. FINDINGS: MINERALIZATION: Normal. LEFT HIP: Left hip arthroplasty remains in good position. RIGHT HIP: Right hip arthroplasty remains in good position. PUBIS AND ISCHIUM: No fracture. PELVIS: No fracture. SACRUM: No fracture or dislocation. No worrisome bone lesions. LOWER LUMBAR SPINE: No fracture or dislocation. No worrisome bone lesions. No significant disc disea se. SOFT TISSUES: No findings. OTHER: No other significant finding. IMPRESSION: NEGATIVE STUDY OF THE LEFT HIP AND PELVIS. NO RADIOGRAPHIC EVIDENCE OF ACUTE INJURY. TECHNICAL DOCUMENTATION: JOB ID: [id number] [employer]- All Rights Reserved Reading location - IP/workstation name: [email or web address]
== END ==
LOC: OD 08:40
PROVIDERS: ATTEND Internal Medicine
DX: M25.552 Pain in left hip (principal)

== ENCOUNTER → 2019-11-07 | Outpatient (CLI) | payer MEDICARE, BC ==
--- NOTE | 2019-11-07 12:39 | RADIOLOGY REPORT (SQ) ---
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 TECHNIQUE: Grayscale ultrasound, Doppler velocity and spectra, and color Doppler images acquired of the extra-cranial carotid and vertebral arteries. Images stored on PACS. LIMITATIONS: None. FINDINGS: RIGHT CAROTID CCA Velocities: Within normal limits. ICA Velocities Peak systolic 86 cm/s. End diastolic 26 cm/s. Proximal ICA/CCA peak systolic ratio 1.3. There is some calcified plaque in the proximal ICA. No significant stenosis. LEFT CAROTID CCA Velocities: Within normal limits. ICA Velocities Peak systolic 82 cm/s. End diastolic 18 cm/s. Proximal ICA/CCA peak systolic ratio 1.7. No significant plaque. Tortuous vessels. VERTEBRAL ARTERIES: Antegrade flow. Normal waveforms. SUBCLAVIAN ARTERIES: No finding. OTHER: No other significant finding. IMPRESSION: NO HEMODYNAMICALLY SIGNIFICANT STENOSIS. COMMENT: Quality ID #[id number]: Velocity criteria are extrapolated from the diameter data as defined by t he Society of Radiologists in Ultrasound Consensus Conference. Radiology 2003: 229; 340-346. TECHNICAL DOCUMENTATION: JOB ID: [id number] 2010 [employer]- All Rights Reserved Reading location - IP/workstation name: [email or web address]
== END ==
LOC: SP 10:06
PROVIDERS: ATTEND Ophthalmology
DX: H34.8312 Tributary (branch) retinal vein occlusion, right eye, stable (principal)
CPT/HCPCS: 93880

== ENCOUNTER → 2019-12-18 | Outpatient (CLI) | payer MEDICARE, BC ==
[2019-12-18 16:05] LABS: INTERNATIONAL RATION (INR) 1.11; PROTHROMBIN TIME 14.4 SEC (11.4-15.4)
[2019-12-18 16:09] LABS: ABSOLUTE EOSINOPHILS # (AUTO) 0.2 10^3/uL (0.0-0.6); ABSOLUTE LYMPHOCYTES (AUTO) 0.7 10^3/uL (0.5-4.7); ABSOLUTE MONOCYTES (AUTO) 0.4 10^3/uL (0.1-1.4); ABSOLUTE NEUT (AUTO) 2.2 10^3/uL (1.7-8.2); BASOPHILS % (AUTO) 0.9 % (0-2); EOSINOPHILS % (AUTO) 4.7 % (0-6); HEMOGLOBIN 8.9 g/dL (12.0-15.5); LYMPHOCYTES % (AUTO) 19.6 % (13-45); MEAN CORPUSCULAR HGB CONC 34.1 g/dL (32.0-36.0); MEAN CORPUSCULAR VOLUME 97 fl (80-97); MONOCYTES % (AUTO) 11.2 % (3-13); RED BLOOD COUNT 2.69 10^6/uL (3.72-5.28); RED CELL DISTRIBUTION WIDTH 15.1 % (11.5-14.0); SEGMENTED NEUTROPHILS % (AUTO) 63.6 % (42-78); TOTAL CELLS COUNTED % (AUTO) 100 %; WHITE BLOOD COUNT 3.4 10^3/uL (4.0-10.5)
[2019-12-18 16:19] LABS: ALBUMIN 3.5 g/dL (3.5-5.0); ALKALINE PHOSPHATASE 95 U/L (38-126); ANION GAP 5 (5-19); ASPARTATE AMINO TRANSFERASE 40 U/L (14-36); BILIRUBIN,TOTAL 0.5 mg/dL (0.2-1.3); BLOOD UREA NITROGEN 19 mg/dL (7-20); CALCIUM 8.9 mg/dL (8.4-10.2); CARBON DIOXIDE 29 mmol/L (22-30); CHLORIDE 99 mmol/L (98-107); GLUCOSE 111 mg/dL (75-110); POTASSIUM 4.4 mmol/L (3.6-5.0); TOTAL PROTEIN 6.2 g/dL (6.3-8.2)
[2019-12-18 17:13] LABS: PLATELET COUNT 65 10^3/uL (150-450)
== END ==
LOC: OD 14:24
PROVIDERS: ATTEND Internal Medicine
DX: N18.3 Chronic kidney disease, stage 3 (moderate) (principal); I48.91 Unspecified atrial fibrillation; K92.2 Gastrointestinal hemorrhage, unspecified; D64.9 Anemia, unspecified
CPT/HCPCS: 36415; 80053; 85025; 85610; 85730